=== PATIENT | male | born 1955 | race Caucasian/White ===

== ENCOUNTER → 2017-09-26 10:04 | Outpatient (CLI) | payer SELFPAY ==
--- NOTE | 2017-09-26 10:07 | RAD_ITS ---
STUDY: X-RAY - PELVIS AND RIGHT HIP REASON FOR EXAM: Male, 62 years old. Chronic right hip pain. TECHNIQUE: Radiological exam, hip, unilateral, with pelvis when performed; 2 or 3 views. COMPARISON: None. FINDINGS: There is a non-specific bowel gas pattern. Normal visualized soft tissue structures. Normal bilateral iliac wings, sacroiliac joints and visualized sacrum. Normal bilateral superior and inferior pubic rami. Normal pubic symphysis. Normal bilateral ischial tuberosities. Widening of the femoral neck. There is osteoarthritic spur formation of the acetabular rim. There is severe articular joint space narrowing of the hip. RAD/Hip 2-3 Views with Pelvis IMPRESSION: Moderate degenerative changes of the hip joint with deformity of the femoral head and neck. Femoral acetabular impingement should be ruled out as well as possible avascular necrosis. Electronically Signed: Roberto Carlos Erwin MD at 15:55 EST Tel [phone], Service support ,
== END ==
PROVIDERS: Visit Provider Orthopaedic Surgery
DX: M16.11 Unilateral primary osteoarthritis, right hip (principal); M25.851 Other specified joint disorders, right hip
CPT/HCPCS: 73502

== ENCOUNTER 2017-10-11 07:27 | Inpatient (IN) | payer SELFPAY ==
[2017-10-03 09:29] VITALS: BP 143/86; PULSE 66; RESP 17; TEMP 37.1; O2SAT 97; BMI 31.1
--- NOTE | 2017-10-03 09:54 | SDCEKG_ITS ---
Test Reason : Blood Pressure : / mmHG Vent. Rate : 062 BPM Atrial Rate : 062 BPM P-R Int : 136 ms QRS Dur : 096 ms QT Int : 402 ms P-R-T Axes : 046 008 052 degrees QTc Int : 408 ms Normal sinus rhythm Normal ECG Confirmed by NUZHAT ALFARO, JATINDER ([id number]), web content editor ASHLIE ALEXANDRA ([id number]) on 10/05/2017 1:51:28 PM Referred By: Ian Logan Confirmed By:JATINDER NOLAND MD
[2017-10-03 10:31] LABS: Hematocrit 44.7 % (40-54); Hemoglobin 15.3 g/dl (13.0-16.5); Mean Corp Hgb Conc 34.2 g/gl (32-36); Mean Corpuscular Hgb 31.4 pg (27.0-32.0); Mean Corpuscular Volume 91.6 fL (80-94); Mean Platelet Vol. 10.4 fl (6.2-12.0); Platelet Count 247 K/mm3 (150-450); RBC Distribution Width CV 13.4 % (11.6-14.6); RBC Distribution Width SD 43.9 fl (35.1-43.9); Red Blood Count 4.88 M/mm3 (4.6-6.2); White Blood Count 7.4 K/mm3 (4.4-11.0)
[2017-10-03 10:51] LABS: Scan Indicated on CBC? Y/N NO
[2017-10-03 10:59] LABS: International Normalized Ratio 1.1; Prothrombin Time (Protime)PT. 13.9 SECONDS (11.7-14.9)
[2017-10-03 11:00] LABS: Hemoglobin A1c 6.5 % (4.2-6.3); Partial Thromboplast Time 26.7 Seconds (24.1-36.2)
[2017-10-03 11:02] LABS: AST(SGOT) 20 U/L (15-37); Alanine Aminotransfer ALT/SGPT 45 U/L (16-61); Albumin, Serum 3.7 g/dL (3.2-5.0); Alkaline Phosphatase 89 U/L (45-117); Anion Gap 8 (5-15); BUN 8 mg/dL (7-18); BUN/Creat Ratio 8.6 RATIO (10-20); Bilirubin, Direct 0.12 mg/dL (0.00-0.30); Calcium,Total 8.9 mg/dL (8.5-10.1); Chloride 105 mmol/L (98-107); Creatinine, Serum 0.93 mg/dL (0.70-1.30); EST Glomerular Filtration Rate 87 mL/min (>60); Est Glom Filt Rate - Afr Amer 106 mL/min (>60); Estimated Creatinine Clearance 74.32 ml/min; Globulin 3.6 g/dL (2.2-4.2); Glucose 183 mg/dL (74-106); Potassium 3.6 mmol/L (3.5-5.1); Protein, Total 7.3 g/dL (6.4-8.2); Sodium Level 137 mmol/L (136-145)
[2017-10-11] VITALS (13 sets, daily range): BP systolic 69–115; BP diastolic 38–67; PULSE 47–81; RESP 16–18; TEMP 35.9–36.8; O2SAT 94–98; BMI 31.1
[2017-10-11] MEDS: oxyCODONE HCl Cr 10 MG Tablet PO ×2 (08:18→21:06)
[2017-10-11] MEDS: Celecoxib 200 MG Capsule PO (08:18)
[2017-10-11] MEDS: Ketorolac 15 MG/ML Vial IV (08:38)
--- NOTE | 2017-10-11 08:44 | OP.PN_ITS ---
Immediate Post-Op Note Date of Procedure: 10/11/17 Primary Surgeon/Physician: Ian Logan DO principal solutions architect: Lisa Estevez Pre-Operative Diagnosis: Right hip osteoarthritis Post-Operative Diagnosis: Same as above Surgery/Procedure Performed:: Right total hip arthroplasty Description of Surgical Findings:: See dictation Estimated Blood Loss: 100 Specimen's removed: Bone cuts ASA Class: ASA2 Mod Systematic Disease - Admit VTE Documentation VTE Present on Admission: No VTE Mechan Device Prophylaxis: SCD's, Knee High MAXIMILIAN Hose VTE Pharm Prophylaxis ordered?: Yes
[2017-10-11] MEDS: Clindamycin 900 MG/50 ML BAG 75 MG IV (09:10)
--- NOTE | 2017-10-11 09:20 | HIP_PTH ---
PATIENT: ESTELLE ROWLAND LOC: MS3 U#:[id number] AGE/SX: 62/M [place] [facility] [place]: Ian Logan DO : 1955 BED: 1 DIS: 10/13/2017 SPEC #: [id number] RECD: 10/11/17 11:53 STATUS: KATE MANUEL #: [id number] JULY: 10/11/17 09:[address]: Ian Logan DEPT: SURGICAL PATHOLOGY RECD BY: Kiet Tan ENTERED: 10/11/17 12:53 SP TYPE: TOTAL HIP OTHR DR: Out of Town Doctor Tissues: Hip, NOS Procedures: Decalcification bone/plaque Surgery Specimen Level IV HEADER OPERATION: Total hip replacement PRE-OP DIAGNOSIS: Primary osteoarthritis of right hip TISSUE SUBMITTED: Right femoral head with debrided bone MICROSCOPIC DIAGNOSIS Bone and soft tissue of right hip, total hip resection: Consistent with severe degenerative joint disease. AM:bret 10/17/17 MICROSCOPIC DESCRIPTION Slides are reviewed. GROSS DESCRIPTION Received is one container designated right femoral head with debrided bone. The specimen consists of a femoral head measuring 5.5 x 5.5 x 5 cm. The articular surface displays prominent osteophyte formation, eburnation and bone erosion. The soft tissue predominantly consists of bone reamings measuring in aggregate 10 x 9 x 3 cm. Language Path sections are submitted in two cassettes as follows: 1 - soft tissue, bone reamings, 2 ? femoral head after decalcification. / LEORA:bret 10/11/17 TC:5 CPT: 85730, 13662
--- NOTE | 2017-10-11 11:14 | PCM.OPRPT ---
Report of Operation Date of Procedure: 10/11/17 Pre-Operative Diagnosis: Right hip osteoarthritis Post-Operative Diagnosis: Same as above Surgery/Procedure Performed:: Right total hip arthroplasty Description of Surgical Findings:: 2-year-old male with recalcitrant right hip pain and osteoarthritis who failed operative management to include NSAIDs activity modifications physical therapy and injections. Patient plain from radiographs consistent with osteoarthritis of the right hip. Having failed conservative measures and feelings of his activities of daily living continue to diminish patient requested operative intervention. He was subsequently consented for right total hip arthroplasty. After successful spinal anesthesia patient was taken the operating room in satisfactory condition with somewhat to place to identify patient up procedure limb. Patient received 900 of clindamycin secondary to an adverse reaction to amoxicillin. He also received 1 g of TXA preoperatively. Patient was then placed into the left lateral decubitus position with well-padded axillary roll and a pad on the table to protect the peroneal nerve of the down leg. He was then prepped and draped in usual fashion. Patient had about a 12-15 cm incision made across her greater trochanter and the gluteals moving distally. IT band was longitudinally split. And the greater trochanter was identified. At that point time using gentle internal rotation the short external rotators were released along with the capsule in continuity. Patient had a longitudinal split meeting to the capsule moving proximally. Revealing the femoral neck. The piriformis was preserved. At that point in time the hip was gently flexed and internally rotated allowing for dislocation of the head. We subsequent a standard distal neck cut of roughly 12 mm proximal to the lesser trochanter. The head was removed out in continuity. It measured roughly 51-52 mm in overall diameter with anticipation of using a 56 mm shell. At that point time the acetabulum was then exposed and the cotyloid fossa freed of any excess debris. The labrum was then removed circumferentially around the hip socket at that time. We preserve as much capsule as possible. We separately blank began our reaming technique centralizing using a 48 mm reamer and then moving up roughly to a 53 mm reamer with good cancellus bleeding circumferentially. We then impacted a 56 mm titanium hemispherical shell with cluster hole from [employer], IP orthopedics using standard technique. I elected to place one 6.5 mm cancellous screw using standard AO technique for additional stabilization. We subsequently impacted a 42 mm MDM liner using standard technique. We had good stability to the shell and cup. We then turned our attention to the stem. The femoral neck was presented any excess bony debris was removed using standard technique. carbon cutter was then to introduced to lateralize. Any canal finder then placed. We separately bloat broach reamed using standard technique being sure to lateralize as much as we could to take off any varus nature to the stem. Patient had excellent cortical bone and we sized up to a #4 Accolade 127? stem from [facility]. Using the trial stem in place we trialed with a -4 offset head using a standard technique. We had excellent stability and leg length. The patient could be flexed and internally rotated to roughly 65-75? easy before any form of subluxation could be appreciated. Patient had a negative shuck and could be flexed appropriately at the knee. Again leg lengths felt adequate. At that point time the hip was gently subluxed and dislocated. Trial components were removed. The wound was copiously irrigated multiple times with an irrigated pulsatile machine. And the canal was then prepped using standard technique. We separately impacted again daily Accolade ii 127 deg stem press-fit from [employer]. We elected to continue with the -4 offset. We used a 42 mm buddhism MDM Melba with a Biolox ceramic 28 mm inner -4 offset. The hip was reduced. Stability was maintained. And then will was copiously irrigated using standard technique. We repaired the short external rotators and capsule in continuity through 3 drill holes through the greater trochanter using standard technique. Again the wound was copious irrigated and reviewed for any excess bleeding. At that point time the gluteal fascia and IT band were closed using [id number] technique with #1 Vicryl. Soft tissues reapproximated 2-0 Vicryl. We are running subicular Monocryl and Dermabond placed the skin. The plate patient was then rolled and placed into an abduction pillow. I was scrubbed and available time during our procedure. Patient admitted to floor for 24 hours of IV antibiotics. Appropriate IV and p.o. pain medication. Weightbearing as tolerated. Posterior hip precautions ?6 weeks.. We had no drains or complications. Implants again included the [place] Accolade 2 127? neck shaft angle #4, 42 buddhism MDM head with a 28 mm Biolox ceramic inner. -4 offset. We had one 65 mm titanium cup with a MDM 42 liner that was also fixed with a 6.5 mm cancellous screw all from [employer], [facility]. Contact. heat treating operator: Lisa Estevez Type of Anesthesia:: Spinal Specimen's removed: Bone cuts Estimated Blood Loss (mL): 100 Grafts/Implants Used: [employer], IP Accolade 2 system - Complications None - Admit VTE Documentation VTE Present on Admission: No VTE Mechan Device Prophylaxis: SCD's, Knee High MAXIMILIAN Hose VTE Pharm Prophylaxis ordered?: Yes
--- NOTE | 2017-10-11 11:22 | OP.PCM_ITS ---
Report of Operation Date of Procedure: 10/11/17 Pre-Operative Diagnosis: Right hip osteoarthritis Post-Operative Diagnosis: Same as above Surgery/Procedure Performed:: Right total hip arthroplasty Description of Surgical Findings:: 2-year-old male with recalcitrant right hip pain and osteoarthritis who failed operative management to include NSAIDs activity modifications physical therapy and injections. Patient plain from radiographs consistent with osteoarthritis of the right hip. Having failed conservative measures and feelings of his activities of daily living continue to diminish patient requested operative intervention. He was subsequently consented for right total hip arthroplasty. After successful spinal anesthesia patient was taken the operating room in satisfactory condition with somewhat to place to identify patient up procedure limb. Patient received 900 of clindamycin secondary to an adverse reaction to amoxicillin. He also received 1 g of TXA preoperatively. Patient was then placed into the left lateral decubitus position with well-padded axillary roll and a pad on the table to protect the peroneal nerve of the down leg. He was then prepped and draped in usual fashion. Patient had about a 12-15 cm incision made across her greater trochanter and the gluteals moving distally. IT band was longitudinally split. And the greater trochanter was identified. At that point time using gentle internal rotation the short external rotators were released along with the capsule in continuity. Patient had a longitudinal split meeting to the capsule moving proximally. Revealing the femoral neck. The piriformis was preserved. At that point in time the hip was gently flexed and internally rotated allowing for dislocation of the head. We subsequent a standard distal neck cut of roughly 12 mm proximal to the lesser trochanter. The head was removed out in continuity. It measured roughly 51-52 mm in overall diameter with anticipation of using a 56 mm shell. At that point time the acetabulum was then exposed and the cotyloid fossa freed of any excess debris. The labrum was then removed circumferentially around the hip socket at that time. We preserve as much capsule as possible. We separately blank began our reaming technique centralizing using a 48 mm reamer and then moving up roughly to a 53 mm reamer with good cancellus bleeding circumferentially. We then impacted a 56 mm titanium hemispherical shell with cluster hole from [employer] orthopedics using standard technique. I elected to place one 6.5 mm cancellous screw using standard AO technique for additional stabilization. We subsequently impacted a 42 mm MDM liner using standard technique. We had good stability to the shell and cup. We then turned our attention to the stem. The femoral neck was presented any excess bony debris was removed using standard technique. card cutter helper was then to introduced to lateralize. Any canal finder then placed. We separately bloat broach reamed using standard technique being sure to lateralize as much as we could to take off any varus nature to the stem. Patient had excellent cortical bone and we sized up to a # 4 Accolade 127? stem from [facility]. Using the trial stem in place we trialed with a -4 offset head using a standard technique. We had excellent stability and leg length. The patient could be flexed and internally rotated to roughly 65-75? easy before any form of subluxation could be appreciated. Patient had a negative shuck and could be flexed appropriately at the knee. Again leg lengths felt adequate. At that point time the hip was gently subluxed and dislocated. Trial components were removed. The wound was copiously irrigated multiple times with an irrigated pulsatile machine. And the canal was then prepped using standard technique. We separately impacted again daily Accolade ii 127 deg stem press-fit from [place]. We elected to continue with the -4 offset. We used a 42 mm yazidism MDM Melba with a Biolox ceramic 28 mm inner -4 offset. The hip was reduced. Stability was maintained. And then will was copiously irrigated using standard technique. We repaired the short external rotators and capsule in continuity through 3 drill holes through the greater trochanter using standard technique. Again the wound was copious irrigated and reviewed for any excess bleeding. At that point time the gluteal fascia and IT band were closed using [id number] technique with #1 Vicryl. Soft tissues reapproximated 2-0 Vicryl. We are running subicular Monocryl and Dermabond placed the skin. The plate patient was then rolled and placed into an abduction pillow. I was scrubbed and available time during our procedure. Patient admitted to floor for 24 hours of IV antibiotics. Appropriate IV and p.o. pain medication. Weightbearing as tolerated. Posterior hip precautions ?6 weeks.. We had no drains or complications. Implants again included the [place] Accolade 2 127? neck shaft angle #4, 42 yazidism MDM head with a 28 mm Biolox ceramic inner. -4 offset. We had one 65 mm titanium cup with a MDM 42 liner that was also fixed with a 6.5 mm cancellous screw all from [employer]. Contact. black top roller: Lisa Estevez Type of Anesthesia:: Spinal Specimen's removed: Bone cuts Estimated Blood Loss (mL): 100 Grafts/Implants Used: [employer] Accolade 2 system - Complications None - Admit VTE Documentation VTE Present on Admission: No VTE Mechan Device Prophylaxis: SCD's, Knee High MAXIMILIAN Hose VTE Pharm Prophylaxis ordered?: Yes
--- NOTE | 2017-10-11 11:55 | RAD_ITS ---
STUDY: X-RAY - PELVIS AND RIGHT HIP REASON FOR EXAM: Male, 62 years old. Right hip replacement. TECHNIQUE: Radiological exam, hip, unilateral, with pelvis when performed; 1 view COMPARISON: Comparison is made with prior study dated September 26, 2017. FINDINGS: The patient is status post right total hip replacement. There is good alignment. Postoperative soft tissue changes. RAD/Hip Min 2 Views (Portable) IMPRESSION: Total right hip replacement. The alignment. Postoperative soft tissue changes. Electronically Signed: Roberto Carlos Erwin MD at 14:16 EST Tel [phone], Service support ,
[2017-10-11] MEDS: Senna/Docusate Sodium 1 Tablet 2 TABLET PO ×2 (13:14→21:06)
[2017-10-11] MEDS: Famotidine 20 MG Tablet PO (13:14)
[2017-10-11] MEDS: Acetaminophen 500 MG Tablet 1000 MG PO ×2 (13:14→21:06)
[2017-10-11] MEDS: Clindamycin 600 MG/50 ML BAG 100 MG IV ×2 (14:58→21:04)
[2017-10-11] MEDS: Aspirin 325 MG Tablet PO (16:59)
[2017-10-11] MEDS: oxyCODONE 5 MG Tablet PO (18:18)
[2017-10-11] MEDS: Lactated Ringers 1,000 ML 75 ML IV (21:04)
[2017-10-11] MEDS: Atorvastatin Calcium 40 MG Tablet PO (21:05)
[2017-10-12] MEDS: oxyCODONE 5 MG Tablet PO ×3 (01:13→13:47)
[2017-10-12 01:15] VITALS: BP 124/71; PULSE 88; RESP 16; TEMP 37.2; O2SAT 96
[2017-10-12] MEDS: Clindamycin 600 MG/50 ML BAG 100 MG IV (04:00)
[2017-10-12 04:24] VITALS: BP 128/65; PULSE 100; RESP 18; TEMP 37.1; O2SAT 95
[2017-10-12] MEDS: 0.9% NaCl Peripheral Flush Adult/Peds IV ×2 (05:26→18:21)
[2017-10-12] MEDS: Acetaminophen 500 MG Tablet 1000 MG PO ×3 (05:26→21:47)
[2017-10-12 06:43] LABS: Hematocrit 34.1 % (40-54); Hemoglobin 11.5 g/dl (13.0-16.5); Mean Corp Hgb Conc 33.7 g/gl (32-36); Mean Corpuscular Hgb 31.8 pg (27.0-32.0); Mean Corpuscular Volume 94.2 fL (80-94); Mean Platelet Vol. 11.1 fl (6.2-12.0); Platelet Count 201 K/mm3 (150-450); RBC Distribution Width CV 13.3 % (11.6-14.6); RBC Distribution Width SD 44.2 fl (35.1-43.9); Red Blood Count 3.62 M/mm3 (4.6-6.2); White Blood Count 9.8 K/mm3 (4.4-11.0)
[2017-10-12 06:46] LABS: Scan Indicated on CBC? Y/N NO
[2017-10-12 07:03] LABS: Anion Gap 7 (5-15); BUN 17 mg/dL (7-18); BUN/Creat Ratio 17.6 RATIO (10-20); Calcium,Total 7.7 mg/dL (8.5-10.1); Chloride 104 mmol/L (98-107); Creatinine, Serum 0.97 mg/dL (0.70-1.30); EST Glomerular Filtration Rate 84 mL/min (>60); Est Glom Filt Rate - Afr Amer 101 mL/min (>60); Estimated Creatinine Clearance 71.25 ml/min; Glucose 124 mg/dL (74-106); Potassium 3.8 mmol/L (3.5-5.1); Sodium Level 138 mmol/L (136-145)
--- NOTE | 2017-10-12 07:53 | PCM.PN.ORT ---
Subjective: Postop day 1 status post right total hip arthroplasty. Patient with hypotensive episode yesterday when going from bed to chair. Vital signs showed him to be hypotensive with no response to heart rate this is most likely indicative of a spinal anesthesia. At this point time his vital signs look very good. Patient is currently sitting in bed eating breakfast. Patient is hesitant about moving and his also has hesitancy about mobilization of the patient. No other reported fevers chills nausea vomiting chest pain or shortness of breath. - Physical Exam General: Alert, Oriented x3, Cooperative, No apparent distress Musculoskeletal: - - Distally neurovascular intact. EHL anterior tibialis gastrocsoleus peroneals 5 out of [address] No expanding hematoma. H&H remained stable. Vital signs improved and stable. No calf pain negative Homans SCDs teds in place. Hardware otherwise well seated well-placed. Vital Signs Temp Pulse Resp BP Pulse Ox 98.8 F 100 18 128/65 H 95 10/12/17 04:24 10/12/17 04:24 10/12/17 04:24 10/12/17 04:24 10/12/17 04:24 Oxygen Delivery Method Room Air Weight: 192 lb 14.472 oz Body Mass Index (BMI) 31.1 Intake and Output for Last 24 Hours 10/10/17 10/11/17 10/12/17 23:59 23:59 23:59 Intake Total 2300 / 2300 2650 / 2650 Output Total 100 / 100 600 / 600 Balance 2200 / 2200 0 / 0 Laboratory Tests Past 24 Hrs 10/12/17 10/12/17 05:50 05:50 WBC 9.8 RBC 3.62 L Hgb 11.5 L Hct 34.1 L MCV 94.2 H MCH 31.8 MCHC 33.7 RDW 13.3 RDW Differential 44.2 H Plt Count 201 MPV 11.1 Sodium 138 Potassium 3.8 Chloride 104 Carbon Dioxide 27.0 Anion Gap 7 BUN 17 Creatinine 0.97 Estim Creat Clear Calc 71.25 Est GFR (MDRD) Af Amer 101 Est GFR (MDRD) Non-Af 84 BUN/Creatinine Ratio 17.6 Glucose 124 H Calcium 7.7 L Assessment/Plan Assessment: Postop day 1 status post right total hip arthroplasty doing well. Plan: At this point time will have case management evaluate the patient for possible skilled nurse facility placement. The patient is a little bit hesitant in terms of mobilization, he has concerns about posterior hip precautions and whether or not he is can remember that as he is afraid he is going to dislocate despite the stability of the implant. The patient also reports that his is hesitant with moving him. I think the patient will benefit from skilled nurse facility if approved. We will continue to follow at this time. Any major issues please contact me.
[2017-10-12] MEDS: Aspirin 325 MG Tablet PO ×2 (09:59→21:47)
[2017-10-12] MEDS: oxyCODONE HCl Cr 10 MG Tablet PO ×2 (10:05→21:46)
[2017-10-12] MEDS: Ascorbic Acid 500 MG Tablet 1000 MG PO (10:05)
[2017-10-12] MEDS: Multivitamins,Therapeutic Tablet 1 TABLET PO (10:05)
[2017-10-12] MEDS: Senna/Docusate Sodium 1 Tablet 2 TABLET PO ×2 (10:05→21:47)
[2017-10-12] MEDS: Calcium Carbonate 500 MG Tablet PO ×2 (10:05→21:45)
[2017-10-12 10:06] VITALS: PULSE 103
[2017-10-12] MEDS: Ramipril 10 MG Capsule PO (10:06)
[2017-10-12] MEDS: Metoprolol(XL)Succ 50 MG Tablet PO (10:06)
[2017-10-12] MEDS: Famotidine 20 MG Tablet PO (10:06)
[2017-10-12 10:07] VITALS: BP 123/78; PULSE 103; RESP 18; TEMP 36.8; O2SAT 98
[2017-10-12 15:00] VITALS: BP 135/71; PULSE 100; RESP 18; TEMP 37.4; O2SAT 98
--- NOTE | 2017-10-12 15:35 | CASEMGMT ---
MARISA FABIAN Face to Face with patient for initial transition planning/care coordination assessment. MARISA FABIAN introduced self and role at [facility]. Patient lying in bed, alert and oriented, at bedside. Patient willing to participate in assessment and is able to answer all questions appropriately. Care providers, pharmacy, and demographics verified. See link attached. Patient wishes to discharge home and is requesting outpatient therapy be [place] at [facility]. MARISA FABIAN call Dr. Logan's office and requested that order be sent to [facility] for outpatient therapy. MARISA FABIAN called and scheduled first outpatient therapy appt which soonest could be 10/18/17 at 7:00am. RN RUI updated patient and and were agreeable with appt but asked if something cancelled for Tuesday that it be rescheduled. MARISA FABIAN discussed with patient and to have [facility] assist with scheduling further appt to coordinate with [facility] Transport Van. Patinet and voiced understanding and thanked MARISA FABIAN. Patient states he has no further needs or concerns at this time. MARISA FABIAN updated Dr. Logan regarding first outpatient therapy appt for 10/18/17 at 7:00am. CM to follow for discharge planning needs that may arise. Disposition Plan: Patient to discharge home with outpatient therapy, family support, and follow-up plans in place.
[2017-10-12] MEDS: Ondansetron 4 MG/2 ML Vial IV (18:21)
[2017-10-12 21:00] VITALS: BP 133/76; PULSE 107; RESP 16; TEMP 37.7; O2SAT 97
[2017-10-12] MEDS: Atorvastatin Calcium 40 MG Tablet PO (21:47)
[2017-10-13 03:00] VITALS: BP 126/79; PULSE 92; RESP 16; TEMP 37.1; O2SAT 94
[2017-10-13 05:45] LABS: Hematocrit 32.9 % (40-54); Hemoglobin 11.1 g/dl (13.0-16.5); Mean Corp Hgb Conc 33.7 g/gl (32-36); Mean Corpuscular Volume 94.8 fL (80-94); Mean Platelet Vol. 10.7 fl (6.2-12.0); Platelet Count 198 K/mm3 (150-450); RBC Distribution Width CV 13.8 % (11.6-14.6); RBC Distribution Width SD 45.7 fl (35.1-43.9); Red Blood Count 3.47 M/mm3 (4.6-6.2); White Blood Count 9.4 K/mm3 (4.4-11.0)
[2017-10-13 05:52] LABS: Scan Indicated on CBC? Y/N NO
[2017-10-13] MEDS: Acetaminophen 500 MG Tablet 1000 MG PO (06:59)
--- NOTE | 2017-10-13 07:50 | PCM.DC.ORTHO ---
Discharge Activity: Return to Normal Activity, May not drive while taking narcotic pain medications., May Shower, Use Walker May shower in (days): 1 May resume sexual activity in: 8 weeks Ice area for (Minutes): 20 Weight Bearing Status: Weight bearing as tolerated Additional Activity Instructions:: Posterior hip precautions ?6 weeks. Use pillow with rest. Call your doctor if your incision/area has: Continuous Slow Oozing, Sudden Increased Bleeding, Increased Pain/ Swelling, Increased Redness, Foul Smelling Discharge, Swelling at the incision site Call your doctor if you observe: Fever of 101 or Higher, Coldness, Increased Pain, Numbness or Tingling, Change in Color, Inability to urinate, Inability to have a bowel movement, Using more than one pad per hour, Shortness of breath, Dizziness, Fainting spells, Swelling in the ankles, Chest pain, Prolonged hiccoughing, Increased palpitations (irregular heartbeat), Calf discomfort, Uncontrolled pain Suture Line Care: Avoid Pulling/Pushing, Avoid Pinching/Bending Change Dressing in (Days):: 5 Remove Dressing in (days):: 5 Cleanse incision/area with: Soap & Water Allergies/Adverse Reactions: Allergies AMOXICILLIN Allergy (Uncoded 10/03/17 09:17) Unknown Medications to take at Discharge Albuterol IH (ProAir) [Proair Hfa (SP)Vent Pts] 1 - 2 puff INHALATION Q4H PRN PRN 10/03/17 Aspirin [Aspir-Low] 81 mg PO DAILY 10/03/17 Atorvastatin Calcium [Lipitor] 40 mg PO QHS 10/03/17 Budesonide/Formoterol 160/4.5 [Symbicort 160/4.5 Mcg Inhaler (SP)] 2 puff INHALATION QHS 10/03/17 Metoprolol Succinate [Toprol Xl] 50 mg PO DAILY 10/03/17 Nitroglycerin [Nitrostat] 0.4 mg SL X1 10/03/17 Ramipril [Altace] 10 mg PO DAILY 10/03/17 Aspirin E.C. [Ecotrin] 325 mg PO BID #30 tab 10/13/17 Docusate Sodium [Colace] 100 mg PO BID PRN PRN #10 cap 10/13/17 Oxycodone HCl/Acetaminophen [Percocet 5/325] 1 - 2 tablet PO Q4H PRN PRN #60 tablet 10/13/17 ProMETHAzine [Phenergan] 25 mg PO Q4H PRN PRN #10 tab 10/13/17 The following prescriptions were given: Oxycodone HCl/Acetaminophen [Percocet 5/325] 1 - 2 tablet PO Q4H PRN PRN #60 tablet PRN Reason: Pain ProMETHAzine [Phenergan] 25 mg PO Q4H PRN PRN #10 tab PRN Reason: Nausea Docusate Sodium [Colace] 100 mg PO BID PRN PRN #10 cap PRN Reason: Constipation Aspirin E.C. [Ecotrin] 325 mg PO BID #30 tab Primary Care Physician: Monserrat Vela,Out of [Primary Care Provider] - Please Follow Up With: [facility] Please Follow Up With: Ian Logan DO When: call [facility] for appt for 2 weeks Proposed Discharge Date: 10/13/17
--- NOTE | 2017-10-13 07:52 | PCM.DC.BLA ---
Discharge Summary Date of Admission: 10/11/17 Date of Discharge: 10/13/17 Summary: 52-year-old male status post right total hip arthroplasty. No major issues. Pain control. H&H remained stable. Patient tolerated regular diet. Patient was amatory physical therapy. Denies any fevers chills nausea vomiting chest pain or shortness of breath. Patient was approved for outpatient physical therapy. At this point time patient will be discharged home. Assessment: After orthopedics status post right total hip arthroplasty doing well. Plan: At this point time patient will be discharged to outpatient physical therapy. Patient will continue with posterior hip precautions ?6 weeks. Patient will be on aspirin 325 p.o. twice daily with GI prophylaxis ?21 days from date of operation. Patient may shower at this time. Continue with coverage of the wound for 7 total days from date of operation. Patient will follow with me in 2 weeks. Any major issues please contact me.
[2017-10-13] MEDS: Ascorbic Acid 500 MG Tablet 1000 MG PO (08:34)
[2017-10-13] MEDS: Multivitamins,Therapeutic Tablet 1 TABLET PO (08:34)
[2017-10-13] MEDS: Calcium Carbonate 500 MG Tablet PO (08:34)
[2017-10-13] MEDS: Aspirin 325 MG Tablet PO (08:34)
[2017-10-13 09:17] VITALS: BP 130/77; PULSE 101; RESP 18; TEMP 36.7; O2SAT 95
[2017-10-13 09:58] VITALS: PULSE 84
[2017-10-13] MEDS: Metoprolol(XL)Succ 50 MG Tablet PO (09:58)
[2017-10-13] MEDS: oxyCODONE HCl Cr 10 MG Tablet PO (09:58)
[2017-10-13] MEDS: Famotidine 20 MG Tablet PO (09:58)
[2017-10-13] MEDS: Ramipril 10 MG Capsule PO (09:58)
[2017-10-13 10:00] VITALS: PULSE 84
[2017-10-13 12:50] VITALS: BP 115/72; PULSE 104; RESP 18; TEMP 36.8; O2SAT 94
== END 2017-10-13 13:44 | disposition home or self-care (01) | DRG 470 ==
LOC: ACINP 07:28 → MS3 11:30
PROVIDERS: Anesthesiology; Admitting Provider Orthopaedic Surgery; Visit Provider Orthopaedic Surgery
PROC: 0SR90JZ Replacement of Right Hip Joint with Synthetic Substitute, Open Approach (ICD-10-PCS; CPT 27130; principal; 2017-10-11 08:55)
DX: M16.11 Unilateral primary osteoarthritis, right hip (principal); E78.5 Hyperlipidemia, unspecified; I10 Essential (primary) hypertension; J45.909 Unspecified asthma, uncomplicated
CPT/HCPCS: 36415; 73502; 80048; 80076; 83036; 85027; 85610; 85730; 87077; 87081; 88305; 88311; 97110; 97116; 97162; 97166; 97530; 97535; J7040; J7120; A4216; J2405

== ENCOUNTER → 2017-10-24 09:19 | Outpatient (CLI) | payer SELFPAY ==
--- NOTE | 2017-10-24 09:23 | RAD_ITS ---
STUDY: X-RAY - PELVIS AND RIGHT HIP REASON FOR EXAM: Male, 62 years old. Postop 2 weeks TECHNIQUE: Radiological exam, hip, unilateral, with pelvis when performed; 2 or 3 views. COMPARISON: Previous study of October 11, 2017 FINDINGS: There is a non-specific bowel gas pattern. Normal visualized soft tissue structures. Normal bilateral iliac wings, sacroiliac joints and visualized sacrum. Normal bilateral superior and inferior pubic rami. Normal pubic symphysis. Normal bilateral ischial tuberosities. Status post total right hip replacement changes are seen with implants appearing in good position. There is no evidence of implant loosening or new associated fracture or dislocation. There are mild arthritic changes of the left hip joint. RAD/Hip 2-3 Views with Pelvis IMPRESSION: Status post total right hip replacement changes seen with implants appearing in good position. There is no evidence of implant loosening or new associated fracture or dislocation. Mild degenerative changes of the left hip joint. Electronically Signed: Ortega Sharma MD at 18:04 EDT , Service support ,
== END ==
PROVIDERS: Visit Provider Orthopaedic Surgery
DX: M16.0 Bilateral primary osteoarthritis of hip (principal); Z96.641 Presence of right artificial hip joint
CPT/HCPCS: 73502

== ENCOUNTER 2017-11-14 14:00 | Outpatient (RCR) | payer OTHER, SELFPAY ==
--- NOTE | 2017-10-17 13:29 | HP.PTEVAL ---
Patient's Visit Information ESTELLE ROWLAND is a 62 year old M referred to Physical Therapy by DO GILA Ordaz with a diagnosis of S/P RIGHT THR 10/11/17. Date of Evaluation: 10/17/17 Physical Therapist: Trena Aragon - Visit Plan Frequency: 2-3x /Week Duration: 4-6 Weeks Plan: GAIT TRAINING WBAT RIGHT LE ON ALL SURFACES. TRUNK AND ORLIN LE ROM, STRETCHING AND STRENGTHENING TO HELP MEET SET GOALS. PATIENT IS AGREEABLE WITH THIS POC - Subjective Subjective: Work/Leisure: PARTIAL PRISON SINCE BEGINNING OF 2018. 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 Disability: NO. Present symptoms: VERY LITTLE PAIN. INTERMITTENT RIGHT HIP PAIN AND TIGHTNESS IN THE THIGH. PATIENT REPORTS A LITTLE BIT OF NUMBNESS NEAR WHERE THEY DID THE INJECTION NEAR THE SPINE BUT GONE NOW. NO OTHER NUMBNESS OR TINGLING. STARTING TO HAVE PAIN BACK IN THE RIGHT KNEE. Present since: S/P RIGHT THR 10/11/17. ABOUT 1.5 YEARS OF RIGHT HIP PAIN AND WEAKNESS PRIOR TO SURGERY. WAS LIMPING DUE TO RIGHT LEG BECOMING SHORTER. Pain Scale: RIGHT HIP: WORST 2/10, LEAST 0/10. RIGHT KNEE: WORST 1/10, LEAST 0/10. Currently: RIGHT HIP: 0/10, RIGHT KNEE 1/10. Commenced as a result of: RIGHT HIP BEING WORN OUT FROM CLEANING CARPET FOR 27 YEARS. RIGHT KNEE PAIN STARTED FOR NO APPARENT REASON. Symptoms at onset: RIGHT HIP. Worse: LIFTING THE LEG, GETTING IN AND OUT OF BED, PUTTING RECLINER LEG DOWN, WALKING WITHOUT THE WALKER, TRYING TO ROLL OVER ONTO LEFT SIDE IN BED FEELS LIKE GOING TO DISLOCATE THE HIP. Better: SITTING. Disturbed sleep: YES. Previous history/Previous treatment: NONE. JUST SURGERY. Gait: INDEP GAIT WITH A WALKER WELL BUT PAIN AND DIFFICULTY WITHOUT ASSISTIVE DEVICE. SCARED OF FALLING WITHOUT AD. FREE STANDING FEELS RISKY. PRIOR TO SURGERY RIGHT LE WAS SHORTER THAN LEFT AND HE CAN FEEL THAT HAS BEEN CORRECTED. Difficulty initiating urinatin: NO. Accidents: NO. Unexplained weight loss: NO. Imaging: x-rays SHOWED HIP WAS BONE ON BONE A YEAR AGO AND IT WAS GETTING VERY PAINFUL AND BARELY ABLE TO WALK EVEN WITH A CANE RIGHT BEFORE SURGERY. PMH: CAD, HEART ATTACK SEP 2011, ONE STENT, ENLARGED PROSTATE, MILD ASTHMA, CURRENTLY HAS 3 UNREPAIRED HERNIAS. OTHER: LAST VISIT WITH DR. GRAVES WAS LAST TUESDAY IN THE HOSPITAL. PATIENT REPORTS HE IS WBAT AND THE HE COULD SIDE SLEEP TOLERATED WITH PILLOW BETWEEN LEGS. STATES NORMAL HE WOULD NOT START A PATIENT INTO REHAB UNTIL 2 WEEKS AFTER SURGERY BUT THEY WANTED TO COME TODAY TO GET A SCHEDULE ESTABLISHED BECAUSE WORKS IN [place] AND TRANSPORTATION NEEDS TO BE ARRANGED. PATIENT REPORTS HE HAS NOT REALLY BEEN DOING THE EX'S HE WAS GIVEN (HE HAS HANDOUT) BUT HE IS ACTIVE. STATES HE GETS NAUSEATED AT TIMES WITH AND WITHOUT THE EX'S. HE STATES HE IS FIGHTING SOME DEPRESSION AND FEELS OUT OF THE LOOP. STATES HE FEELS URGENCY TO RECOVER. - Objective THIS PATIENT AMBULATES INDEP'LY INTO PT WITH A STANDARD WALKER. HE IS RUSHING BECAUSE HE IS LATE AND WENT TO THE WRONG PLACE. HE PUTS THE WALKER TOO FAR IN FRONT OF HIM AND STARTS STEPPING WITH ONLY TWO FEET OF THE WALKER ON THE FLOOR. ABLE TO CORRECT WITH CUEING BUT DOES MUCH BETTER WITH A ROLLING WALKER. STATES THEY RECOMMENDED A ROLLING WALKER AT THE HOSPITAL TOO BUT TRYING TO AVOID GETTING WHEELS BECAUSE HOPING TO BE OFF THE WALKER IN A WEEK. AFTER INSTRUCTIONS, PATIENT UNDERSTANDING MUCH BETTER THE BENEFITS OF WALKING SLOWER WITH AD VS FASTER AND WITHOUT AD TO DECREASE DEVIATIONS AT THIS POINT. PATIENT TRANSFERS INDEP'LY FROM SIT TO STAND TO WALKER BUT VERY DEPENDENT ON UE'S WITH TRANSFERS. UNALBE TO VIEW INCISIOND DUE TO BANDAGING BUT NO SIGNS OF DRAINAGE OR EXCESSIVE REDNESS AROUND THE INCISION. HE DOES HAVE A LITTLE NUMBNESS AROUND THE INCISION BUT OTHERWISE LIGHT TOUCH SENSATION IS INTACT AND SYMMETRICAL. PATIENT IS ABLE TO INDEP'LY TRANSFER FROM SIT TO SUPINE BUT WITH A LOT OF GUARDING AND C/O'S OF PAIN. HE WAS ABLE TO LIFT HIS RIGHT LEG ONTO THE BED WITHOUT USING UE'S. HE IS UNABLE TO GET HIS RIGHT KNEE STRAIGHT. HE ADMITS TO PROPING HIS RIGHT KNEE IN BED FOR COMFORT THE LAST TWO DAYS. HE ALSO ADMITS TO NOT DOING HIS HOME EX'S. RIGHT KNEE AROM IN SUPINE WITH A HEEL SLIDE IS -10 DEG EXT TO 112 DEG FLEX. MMT: LLE 5/5 EXCEPT HIP GRADED 4/5 AND TESTING OF HIP PROVOKES A LITTLE BIT OF INCREASED RIGHT HIP PAIN. RLE MMT: HIP FLEX 3-/5, KNEE EXT 3-/5, KNEE FLEX 3-/5, ANKLE DORSI 5/5. ROM: IN ADDITION TO RIGHT KNEE ROM DEFICITS NOTED ABOVE, PATIENT HAS TIGHT HIP FLEXORS ON THE RIGHT. RIGHT HIP FLEXION TO 90 DEG. PATIENT REPORTS 5/10 PAIN LYING DOWN ON HIS BACK ATTEMPTING TO GET HIS RIGHT LEG OUT STRAIGHT. THE RIGHT LE APPEARS TO BE SIGNIFICANTLY LONGER IN STANDING AND IN LYING THAN THE LEFT NOW AND PATIENT REPORTS IT WAS THE OTHER WAY AROUND BEFORE SURGERY. TREATMENT: PATIENT WAS SEEN TODAY FOR REVIEW OF THR PRECAUTIONS AND REVIEW OF CURRENT HEP. HEP INSTRUCTIONS FOR ANKLE PUMPS, HEEL SLIDES, QUAD SETS, GLUTE SETS AND SLR'S 3 TIMES A DAY WORKING UP TO 3 SETS OF 10 EACH. INSTRUCTIONS ALSO GIVEN FOR APPROPRIATE ACTIVITY MODIFICATIONS ESPECIALLY IN TERMS OF LIMITING PROLONGED SITTING IN THE RECLINER. PATIENT COMMUNICATED A GOOD UNDERSTANDING OF ALL INSTRUCTIONS AFTER GIVEN. OTHER: PATIENTS PRESENT THROUGHOUT SESSION. - Goals Goal 1:: INDEP AND SAFE GAIT ON ALL SURFACES WITH LEAST ASSISTIVE DEVICE Goal Time Frame: 4-6 Weeks Goal 2:: INCREASE FUNCTIONAL ROM OF RIGHT LE TO EASE ADL'S Goal Time Frame: 4-6 Weeks Goal 3:: INCREASE FUNCTIONAL STRENGTH OF RIGHT LE TO HELP PATIENT RETURN TO PRIOR LEVEL OF FUNCTION Goal Time Frame: 4-6 Weeks Goal 4:: INDEP HEP Goal Time Frame: 4-6 Weeks - Rehabilitation Potential Rehabilitation Potential: Good - Anticipated Interventions Patient/Client Instruction: Educate patient on: Condition, Plan of Care, Risk Factors, Benefits of Fitness Program For the Purpose of:: To improve self management Therapeutic Exercise to Include: Strength training, Body mechanics, Postural training, Flexibilty training, Gait and locomotor training, Active ROM For the Purpose of:: To increase tolerance to activity/condition/position, To improve performance and independence with ADL's, To improve ability of physical actions for home/community/work/leisure, To improve gait and locomotor functions Thank you for the opportunity to evaluate your patient. For Medicare and Medicare HMO plans, please review the plan of care and approve it. It will need to be FAXED BACK to us at [phone] for Medicare purposes. Please let me know if there are questions or concerns regarding this plan of care. Physician Signature: Date:
--- NOTE | 2017-11-14 14:58 | HP.PTEVAL_ITS ---
Patient's Visit Information ESTELLE ROWLAND is a 62 year old M referred to Physical Therapy by Ian Logan DO DR.MTPAMELA with a diagnosis of S/P RIGHT THR 10/11/17. Date of Evaluation: 10/17/17 Physical Therapist: Trena Downey Visit Plan Frequency: 2-3x /Week Duration: 4-6 Weeks Plan: D/C TO FOLLOW UP WITH DR. LOGAN IN ABOUT 10 DAYS. WE WOULD BE HAPPY TO RESUME PT IF PATIENT DOES NOT CONTINUE TO MAKE PROGRESS INDEP'LY BUT HE WOULD LIKE TO BE DISCHARGED AND PLANS TO START WORKING SOON POSSIBLE. 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 Disability: NO. Present symptoms: VERY LITTLE PAIN. INTERMITTENT RIGHT HIP PAIN AND TIGHTNESS IN THE THIGH. PATIENT REPORTS A LITTLE BIT OF NUMBNESS NEAR WHERE THEY DID THE INJECTION NEAR THE SPINE BUT GONE NOW. NO OTHER NUMBNESS OR TINGLING. STARTING TO HAVE PAIN BACK IN THE RIGHT KNEE. Present since: S/P RIGHT THR 10/11/17. ABOUT 1.5 YEARS OF RIGHT HIP PAIN AND WEAKNESS PRIOR TO SURGERY. WAS LIMPING DUE TO RIGHT LEG BECOMING SHORTER. Pain Scale: RIGHT HIP: WORST 2/10, LEAST 0/10. RIGHT KNEE : WORST 1/10, LEAST 0/10. Currently: RIGHT HIP: 0/10, RIGHT KNEE 1/10. Commenced as a result of: RIGHT HIP BEING WORN OUT FROM CLEANING CARPET FOR 27 YEARS. RIGHT KNEE PAIN STARTED FOR NO APPARENT REASON. Symptoms at onset: RIGHT HIP. Worse: LIFTING THE LEG, GETTING IN AND OUT OF BED, PUTTING RECLINER LEG DOWN, WALKING WITHOUT THE WALKER, TRYING TO ROLL OVER ONTO LEFT SIDE IN BED FEELS LIKE GOING TO DISLOCATE THE HIP. Better: SITTING. Disturbed sleep: YES. Previous history/Previous treatment: NONE. JUST SURGERY. Gait: INDEP GAIT WITH A WALKER WELL BUT PAIN AND DIFFICULTY WITHOUT ASSISTIVE DEVICE. SCARED OF FALLING WITHOUT AD. FREE STANDING FEELS RISKY. PRIOR TO SURGERY RIGHT LE WAS SHORTER THAN LEFT AND HE CAN FEEL THAT HAS BEEN CORRECTED. Difficulty initiating urinatin: NO. Accidents: NO. Unexplained weight loss: NO. Imaging: x-rays SHOWED HIP WAS BONE ON BONE A YEAR AGO AND IT WAS GETTING VERY PAINFUL AND BARELY ABLE TO WALK EVEN WITH A CANE RIGHT BEFORE SURGERY. PMH: CAD, HEART ATTACK SEP 2011, ONE STENT, ENLARGED PROSTATE , MILD ASTHMA, CURRENTLY HAS 3 UNREPAIRED HERNIAS. OTHER: LAST VISIT WITH DR. LOGAN WAS LAST TUESDAY IN THE HOSPITAL. PATIENT REPORTS HE IS WBAT AND THE HE COULD SIDE SLEEP TOLERATED WITH PILLOW BETWEEN LEGS. STATES NORMAL HE WOULD NOT START A PATIENT INTO REHAB UNTIL 2 WEEKS AFTER SURGERY BUT THEY WANTED TO COME TODAY TO GET A SCHEDULE ESTABLISHED BECAUSE WORKS IN [place] AND TRANSPORTATION NEEDS TO BE ARRANGED. PATIENT REPORTS HE HAS NOT REALLY BEEN DOING THE EX'S HE WAS GIVEN (HE HAS HANDOUT) BUT HE IS ACTIVE. STATES HE GETS NAUSEATED AT TIMES WITH AND WITHOUT THE EX'S. HE STATES HE IS FIGHTING SOME DEPRESSION AND FEELS OUT OF THE LOOP. STATES HE FEELS URGENCY TO RECOVER. - Pain RIGHT HIP Pain Intensity (Out of 10): 0 Comment: stiff Left Arm Pain Intensity (Out of 10): 0 Comment: Palm, 3rd and 4th metacarpals - Objective THIS PATIENT AMBULATES INDEP'LY INTO PT WITH A STANDARD WALKER. HE IS RUSHING BECAUSE HE IS LATE AND WENT TO THE WRONG PLACE. HE PUTS THE WALKER TOO FAR IN FRONT OF HIM AND STARTS STEPPING WITH ONLY TWO FEET OF THE WALKER ON THE FLOOR. ABLE TO CORRECT WITH CUEING BUT DOES MUCH BETTER WITH A ROLLING WALKER. STATES THEY RECOMMENDED A ROLLING WALKER AT THE HOSPITAL TOO BUT TRYING TO AVOID GETTING WHEELS BECAUSE HOPING TO BE OFF THE WALKER IN A WEEK. AFTER INSTRUCTIONS, PATIENT UNDERSTANDING MUCH BETTER THE BENEFITS OF WALKING SLOWER WITH AD VS FASTER AND WITHOUT AD TO DECREASE DEVIATIONS AT THIS POINT. PATIENT TRANSFERS INDEP'LY FROM SIT TO STAND TO WALKER BUT VERY DEPENDENT ON UE'S WITH TRANSFERS. UNALBE TO VIEW INCISIOND DUE TO BANDAGING BUT NO SIGNS OF DRAINAGE OR EXCESSIVE REDNESS AROUND THE INCISION. HE DOES HAVE A LITTLE NUMBNESS AROUND THE INCISION BUT OTHERWISE LIGHT TOUCH SENSATION IS INTACT AND SYMMETRICAL. PATIENT IS ABLE TO INDEP'LY TRANSFER FROM SIT TO SUPINE BUT WITH A LOT OF GUARDING AND C/O'S OF PAIN. HE WAS ABLE TO LIFT HIS RIGHT LEG ONTO THE BED WITHOUT USING UE'S. HE IS UNABLE TO GET HIS RIGHT KNEE STRAIGHT. HE ADMITS TO PROPING HIS RIGHT KNEE IN BED FOR COMFORT THE LAST TWO DAYS. HE ALSO ADMITS TO NOT DOING HIS HOME EX'S. RIGHT KNEE AROM IN SUPINE WITH A HEEL SLIDE IS -10 DEG EXT TO 112 DEG FLEX. MMT: LLE 5/5 EXCEPT HIP GRADED 4/5 AND TESTING OF HIP PROVOKES A LITTLE BIT OF INCREASED RIGHT HIP PAIN. RLE MMT: HIP FLEX 3- /5, KNEE EXT 3-/5, KNEE FLEX 3-/5, ANKLE DORSI 5/5. ROM: IN ADDITION TO RIGHT KNEE ROM DEFICITS NOTED ABOVE, PATIENT HAS TIGHT HIP FLEXORS ON THE RIGHT. RIGHT HIP FLEXION TO 90 DEG. PATIENT REPORTS 5/10 PAIN LYING DOWN ON HIS BACK ATTEMPTING TO GET HIS RIGHT LEG OUT STRAIGHT. THE RIGHT LE APPEARS TO BE SIGNIFICANTLY LONGER IN STANDING AND IN LYING THAN THE LEFT NOW AND PATIENT REPORTS IT WAS THE OTHER WAY AROUND BEFORE SURGERY. TREATMENT: PATIENT WAS SEEN TODAY FOR REVIEW OF THR PRECAUTIONS AND REVIEW OF CURRENT HEP. HEP INSTRUCTIONS FOR ANKLE PUMPS, HEEL SLIDES, QUAD SETS, GLUTE SETS AND SLR'S 3 TIMES A DAY WORKING UP TO 3 SETS OF 10 EACH. INSTRUCTIONS ALSO GIVEN FOR APPROPRIATE ACTIVITY MODIFICATIONS ESPECIALLY IN TERMS OF LIMITING PROLONGED SITTING IN THE RECLINER. PATIENT COMMUNICATED A GOOD UNDERSTANDING OF ALL INSTRUCTIONS AFTER GIVEN. OTHER: PATIENTS PRESENT THROUGHOUT SESSION. - Goals Goal 1:: INDEP AND SAFE GAIT ON ALL SURFACES WITH LEAST ASSISTIVE DEVICE Goal Time Frame: 4-6 Weeks Goal 2:: INCREASE FUNCTIONAL ROM OF RIGHT LE TO EASE ADL'S Goal Time Frame: 4-6 Weeks Goal 3:: INCREASE FUNCTIONAL STRENGTH OF RIGHT LE TO HELP PATIENT RETURN TO PRIOR LEVEL OF FUNCTION Goal Time Frame: 4-6 Weeks Goal 4:: INDEP HEP Goal Time Frame: 4-6 Weeks - Rehabilitation Potential Rehabilitation Potential: Good - Anticipated Interventions Patient/Client Instruction: Educate patient on: Condition, Plan of Care, Risk Factors, Benefits of Fitness Program For the Purpose of:: To improve self management Therapeutic Exercise to Include: Strength training, Body mechanics, Postural training, Flexibilty training, Gait and locomotor training, Active ROM For the Purpose of:: To increase tolerance to activity/condition/position, To improve performance and independence with ADL's, To improve ability of physical actions for home/community/work/leisure, To improve gait and locomotor functions Thank you for the opportunity to evaluate your patient. For Medicare and Medicare HMO plans, please review the plan of care and approve it. It will need to be FAXED BACK to us at [phone] for Medicare purposes. Please let me know if there are questions or concerns regarding this plan of care. Physician Signature: Date:
--- NOTE | 2017-11-14 14:58 | HP.PTDCSUM_ITS ---
HP - PT D/C Summary It has been my pleasure to treat ESTELLE ROWLAND under orders from Ian Logan DO, for the diagnosis of S/P RIGHT THR 10/11/17 for a total of 10 visit(s). Discharge Date: 11/14/17 Please see the following information for a summary of their discharge status. - Subjective Subjective: PATIENT REPORTS HE FEELS REALLY GOOD. HE DOES STILL TIRE OUT EASY BUT HE STATES IT IS BECAUSE HE HASN'T BEEN ACTIVE ENOUGH. HE APPLIED FOR A JOB TODAY. HE WANTS TO WORK PART-TIME. PATIENT REPORTS HE CAN LIE ON BOTH SIDES NOW AND OTHER THAN A LITTLE STIFFNESS IN BOTH HIPS AFTER SITTING HE ISN'T HAVING ANY ISSUES (OTHER THAN BEING LAZY AND NOT DOING HIS EX'S). HE IS STATES HE IS VERY THANKFUL FOR THE SURGERY AND THERAPY. PATIENT REPORTS IF HE DOES ANY MORE PT IT WILL BE FOR HIS NECK/LUE BUT IT IS GETTING BETTER. APPOINTMENT WITH DR. LOGAN IN ABOUT 10 DAYS. - Pain RIGHT HIP Pain Intensity (Out of 10): 0 Left Arm Pain Intensity (Out of 10): 0 - Overall Improvement % Improvement: 100 - Objective Objective/Function: THIS PATIENT AMBULATES INDEP'LY INTO PT WITHOUT ANY ASSISTIVE DEVICES AND NO LOSS OF BALANCE HOWEVER HE HAS A MAJOR LIMP ON THE RIGHT LE UPON INITIATING GAIT AFTER SITTING FOR ABOUT 5 STEPS OR SO THEN HIS GAIT SMOOTHS OUT BUT MILD LIMP ON THE RIGHT LE CONTINUES. THE RIGHT LE IS SIGNIFICANTLY LONGER THAN THE LEFT AND PATIIENT REPORTS THAT WAS DR. LOGAN'S PLAN. RIGHT KNEE AROM IN SUPINE WITH A HEEL SLIDE = FULL RIGHT KNEE EXT TO 135 DEG FLEX. MMT: LLE 5/5. RLE MMT: HIP FLEX 4-/5, KNEE EXT 4/5, KNEE FLEX 4+/5 , ANKLE DORSI 5/5. PATIENT IS NOW ABLE TO GET COMFORTABLE IN SUPINE LYING WITH RIGHT LE EXTENDED WITHOUT PAIN. NOTE - BEFORE SURGERY, PATIENT REPORTS THE LLE WAS LONGER THAN THE RIGHT. ORLIN LE LIGHT TOUCH SENSATION IS INTACT AND SYMMETRICAL. SLS ON THE LLE IS GOOD BUT HE IS UNABLE TO SLS ON THE RIGHT LE FOR MORE THAN A FEW SECONDS WITHOUT UE ASSIST. PATIENT IS INDEP WITH HEP. - Goals Goal 1:: INDEP AND SAFE GAIT ON ALL SURFACES WITH LEAST ASSISTIVE DEVICE Goal Progress: Goal Met Goal 2:: INCREASE FUNCTIONAL ROM OF RIGHT LE TO EASE ADL'S Goal Progress: Goal Met Goal 3:: INCREASE FUNCTIONAL STRENGTH OF RIGHT LE TO HELP PATIENT RETURN TO PRIOR LEVEL OF FUNCTION Goal Progress: Goal Met Goal 4:: INDEP HEP Goal Progress: Goal Met - Plan Plan: D/C TO FOLLOW UP WITH DR. LOGAN IN ABOUT 10 DAYS. WE WOULD BE HAPPY TO RESUME PT IF PATIENT DOES NOT CONTINUE TO MAKE PROGRESS INDEP'LY BUT HE WOULD LIKE TO BE DISCHARGED AND PLANS TO START WORKING SOON POSSIBLE. - D/C Information If there are questions or concerns regarding this patient's physical therapy, please feel free to call me at [phone]. Thank you for the referral of this patient. Sincerely, Trena Aragon
== END 2017-11-14 19:00 | disposition home or self-care (01) ==
LOC: PT 14:00
PROVIDERS: Visit Provider Orthopaedic Surgery
DX: Z96.641 Presence of right artificial hip joint (principal)
CPT/HCPCS: 97110; 97116; 97162; 97530

== ENCOUNTER → 2018-04-27 17:47 | Outpatient (CLI) | payer SELFPAY ==
--- NOTE | 2018-04-27 17:50 | MRI_ITS ---
STUDY: MRI BRAIN WITHOUT CONTRAST REASON FOR EXAM: Male, 63 years old. Memory problems and dizziness when driving TECHNIQUE: Standardized multiplanar fat and water weighted pulse sequences were obtained. COMPARISON: None. FINDINGS: Normal size of the ventricles and extra-axial spaces for the patient's age. Multiple small scattered punctate white matter lesions in the centrum semiovale and hall radiata bilaterally likely due to ischemic changes in patient of this age... Normal bilateral basal ganglia. Normal thalami. There is no extra-axial fluid accumulation. Normal flow voids within the major intracranial circulation suggesting patency by spin echo criteria. Normal sella turcica, pituitary gland, infundibular stalk, optic chiasm and hypothalamus. Normal tectal plate and pineal gland. Normal midbrain, satnam and medulla. Normal cerebellum. Normal basal cisterns. Normal bilateral temporal bones. Normal bilateral internal auditory canals. Postsurgical changes of the orbits.. Normal visualized paranasal sinuses. Normal calvarium and skull base. Normal visualized soft tissue structures. Normal visualized upper cervical spine. MRI/Brain without Contrast IMPRESSION: Mild periventricular white matter ischemic changes without evidence for acute infarct. Electronically Signed: Alexi Carrasco MD at 19:39 EDT , Service support ,
== END ==
PROVIDERS: Family Provider Family Medicine; PCP Family Medicine
DX: G45.8 Other transient cerebral ischemic attacks and related syndromes (principal)
CPT/HCPCS: 70551

== ENCOUNTER → 2018-05-01 12:44 | Outpatient (CLI) | payer SELFPAY ==
--- NOTE | 2018-05-01 12:55 | CDU_ITS ---
Reason For Study: Trancient Cerebral Ischem Rt. Velocities/BP Lt. Velocities/BP Prox CCA 98.2/16.5 cm/sec. Prox CCA 96.6/16.1 cm/sec. Mid CCA 103/24.4 cm/sec. Mid CCA 101/23.6 cm/sec. Dist CCA 80.1/18.9 cm/sec. Dist CCA 70.4/14.7 cm/sec. Prox ICA 83.8/19.9 cm/sec. Prox ICA 66.8/18.2 cm/sec. Mid ICA 81.5/25.8 cm/sec. Mid ICA 134/47.9 cm/sec. Dist ICA 75.6/24 cm/sec. Dist ICA 60.1/17.3 cm/sec. Rt. ICA/CCA = 0.85. Lt. ICA/CCA = 1.39. Prox ECA 94.3/7.07 cm/sec. Prox ECA 106/24 cm/sec. Rt. Vert. 37.9/10.5 cm/sec. Lt. Vert. 43.2/15.3 cm/sec. Right Extracranial There is no significant atherosclerotic plaque noted in the right common carotid artery. There is heterogeneous, smooth atherosclerotic plaque noted in the right internal carotid artery. There is no significant atherosclerotic plaque noted in the right external carotid artery. Antegrade flow is noted in the right vertebral artery. Left Extracranial There is heterogeneous, irregular atherosclerotic plaque noted in the left common carotid artery. There is no significant atherosclerotic plaque noted in the left internal carotid artery. The left internal carotid artery is very tortuous. There is heterogeneous, irregular atherosclerotic plaque noted in the left external carotid artery. Antegrade flow is noted in the left vertebral artery. Procedure Carotid Duplex [id number]. Exam performed in department. Interpretation Summary Mild (<50%) stenosis right extracranial internal carotid. No significant atherosclerotic plaque or stenosis noted in the left internal carotid artery. Flow within the vertebral arteries is antegrade bilaterally. Ordering Physician: BRYAN WARREN Referring Physician: Benjamin Cruz MD Performed By: Tita Petit RVT, RDCS and Student
== END ==
PROVIDERS: Family Provider Family Medicine; PCP Family Medicine; Visit Provider Surgery
DX: G45.8 Other transient cerebral ischemic attacks and related syndromes (principal)
CPT/HCPCS: 93880

== ENCOUNTER → 2019-07-16 08:13 | Outpatient (CLI) | payer SELFPAY ==
[2019-07-16 08:08] VITALS: BMI 29.9
--- NOTE | 2019-07-16 08:14 | RAD_ITS ---
STUDY: X-RAY - PELVIS AND RIGHT HIP REASON FOR EXAM: Male, 64 years old. Pain TECHNIQUE: 3 views of the pelvis and hip. COMPARISON: 24 October 2017 FINDINGS: There is bipolar acetabulum screws secured total hip arthroplasty on the right. Hardware components are intact and in the expected position with normal bone interface. There is no heterotopic ossification. Remainder of the bones of the pelvis are intact and left hip is unremarkable. There are moderately extensive vascular calcifications in the right upper thigh. Appearance is similar to prior. RAD/HIP, UNI W/ Pelvis 2-3 Views IMPRESSION: Stable expected appearance of right total hip arthroplasty. Electronically Signed: Chris Frances, at 18:57 EST Tel , Service support ,
== END ==
PROVIDERS: Family Provider Family Medicine; PCP Family Medicine; Referring Provider Orthopaedic Surgery; Visit Provider Orthopaedic Surgery
DX: M25.551 Pain in right hip (principal); Z96.641 Presence of right artificial hip joint
CPT/HCPCS: 73502

== ENCOUNTER → 2019-08-13 09:24 | Outpatient (CLI) | payer SELFPAY ==
[2019-06-26 15:21] VITALS: BMI 29.9
[2019-07-16 08:08] VITALS: BMI 29.9
--- NOTE | 2019-08-13 09:25 | STEWCON_ITS ---
Reason For Study: CAD Stress Results Protocol: Pawel Protocol Maximum Predicted HR: 156 bpm Target HR: 133 bpm % Maximum Predicted HR: 90 % DurationHeart Rate Stage (mm:ss) (bpm) BP Comment Baseline 72 122/80No Chest Pain; 4 ML Diluted Definity Pawel Protocol Stage I 3:00 111 128/72No Chest Pain Pawel Protocol Stage II 3:00 131 140/90No Chest Pain; Mild Dyspnea Pawel Protocol Stage III 1:00 141 / No Chest Pain; Moderate Dyspnea Recovery 86 130/80No Chest Pain Stress Duration: 7:00 mm:ss Maximum Stress HR: 141 bpm METS: 10 Baseline Echocardiogram Findings The estimated ejection fraction is 65 %. Stress Echo Wall motion Data Resting WM Intermediate WM Stress WM Resting Wall Motion Wall Motion Stress No regional wall motion No regional wall motion abnormalities noted. abnormalities noted. EKG Data The baseline ECG displays normal sinus rhythm. The patient exercised according to the regular Pawel protocol for a total duration of 7:00. The maximum heart rate attained was 155 beats per minute. This was 99% of maximum predicted heart rate. The patient exercised into stage 3 of the Pawel protocol. During stress, there were no ST or T wave changes noted to suggest ischemia. No clinical angina was noted. Interpretation Summary The estimated ejection fraction is 65 %. Normal, adequate, treadmill echocardiogram. Negative for ischemia by EKG and echocardiographic criteria. No anginal symptoms noted. Rare PVCs noted. Appropriate blood pressure response to exercise. Average exercise capacity for age. Test terminated due to dyspnea. Final LVEF is 75%. Decreased sensitivity due to poor echo windows requiring Definity agent. Patient tolerated the procedure well. No complication. The study was technically difficult. Contrast injection was performed. Ordering Physician: Nikolas Nix M.D. Referring Physician: Benjamin Cruz M.D. Performed By: Tita Petit, PHILLIP, RVT
--- NOTE | 2019-08-13 09:25 | ECHOD_ITS ---
Reason For Study: CAD/ASHD Procedure This was a 2D Doppler, Color Flow transthoracic echocardiogram. Exam performed in department. Left Ventricle Mild concentric left ventricular hypertrophy. The estimated ejection fraction is 55 %. Stage 1 diastolic dysfunction. No regional wall motion abnormalities noted. Right Ventricle Normal size and thickness. Normal systolic function. Atria Normal left atrium. Normal right atrium. Normal atrial septum. Mitral Valve The mitral valve is structurally normal. No prolapse or stenosis seen. Trivial mitral valve insufficiency. Tricuspid Valve Normal tricuspid valve. Unable to estimate RV systolic pressure due to insufficient tricuspid regurgitant envelope. Aortic Valve Trisinus/trileaflet aortic valve. Mild diffuse aortic valve calcification. Trivial aortic valve insufficiency. Pulmonic Valve Normal pulmonic valve. Great Vessels Normal aortic root. Normal arch. Normal inferior vena cava. Inferior vena cava collapse with sniff. Pericardium/Pleural No pericardial effusion. MMode/2D Measurements & Calculations LVIDd: 4.9 cm IVSd: 1.5 cm Ao root diam: 2.6 cm LVIDs: 3.6 cm LVPWd: 1.0 cm RVDd: 3.5 cm FS: 25.7 % LAV(MOD-bp): 54.7 ml LVAd ap4: 29.8 cm2 SV(MOD-sp4): 52.4 ml LAV(MOD-bp) Indexed: 27.9 ml/m2 EDV(MOD-sp4): 100.8 ml LAV(MOD-sp2): 52.4 ml EDV(sp4-el): 106.8 ml LAV(MOD-sp4): 48.8 ml LVAs ap4: 19.0 cm2 ESV(MOD-sp4): 48.4 ml ESV(sp4-el): 50.6 ml EF(MOD-sp4): 52.0 % EF(sp4-el): 52.6 % SV(sp4-el): 56.1 ml LA A4 area: 18.1 cm2 LA dimension(2D): 4.1 cm RA A4 area: 17.3 cm2 Doppler Measurements & Calculations MV E max khari: 74.7 cm/sec Lat Peak E' Khari: 8.4 cm/sec Med Peak E' Khari: 7.6 cm/sec MV A max khari: 78.9 cm/sec E/E' lat: 8.9 E/E' med: 9.8 MV E/A: 0.95 Ao V2 max: 122.1 cm/sec LV V1 max: 102.7 cm/sec PA V2 max: 96.4 cm/sec Ao max P.0 mmHg LV V1 max P.2 mmHg Ao V2 mean: 91.1 cm/sec Ao mean P.5 mmHg Ao V2 VTI: 26.6 cm Interpretation Summary The estimated ejection fraction is 55 %. Stage 1 diastolic dysfunction. Trivial mitral valve insufficiency. Unable to estimate RV systolic pressure due to insufficient tricuspid regurgitant envelope. Trivial aortic valve insufficiency. There is no comparison study available. Ordering Physician: Nikolas Nix Referring Physician: Nikolas Nix Performed By: Tita Petit RDCS, RVT
== END ==
PROVIDERS: Family Provider Family Medicine; PCP Family Medicine; Referring Provider Internal Medicine Cardiovascular Disease; Visit Provider Internal Medicine Cardiovascular Disease
DX: I10 Essential (primary) hypertension (principal); I25.2 Old myocardial infarction; I25.10 Atherosclerotic heart disease of native coronary artery without angina pectoris; E11.9 Type 2 diabetes mellitus without complications; E78.5 Hyperlipidemia, unspecified; Z95.5 Presence of coronary angioplasty implant and graft
CPT/HCPCS: 93017; 93306; 93350; Q9957; A4216; C8928

== ENCOUNTER 2019-09-09 22:44 | Emergency (ER) | payer SELFPAY ==
[2019-07-16 08:08] VITALS: BMI 29.9
[2019-09-09 22:44] VITALS: BP 138/105; PULSE 118; RESP 17; TEMP 36.4; O2SAT 96; BMI 30.7
--- NOTE | 2019-09-09 22:47 | ED.RN ---
THIS RN CONTACTED [facility] RESPIRATORY THERAPIST FOR EKG.
[2019-09-09 22:50] VITALS: O2SAT 97
[2019-09-09 23:07] VITALS: O2SAT 94
--- NOTE | 2019-09-09 23:07 | EKG12_ITS ---
Test Reason : CP/SOB Blood Pressure : / mmHG Vent. Rate : 085 BPM Atrial Rate : 085 BPM P-R Int : 130 ms QRS Dur : 094 ms QT Int : 372 ms P-R-T Axes : 049 001 057 degrees QTc Int : 442 ms Normal sinus rhythm Nonspecific ST abnormality Abnormal ECG Confirmed by NUZHAT ALFARO, JATINDER ([id number]), manager editorial STACEY ONEAL ([id number]) on 09/12/2019 1:39:20 PM Referred By: BRENT Confirmed By:JATINDER NOLAND MD
--- NOTE | 2019-09-09 23:07 | RAD_ITS ---
HISTORY: BACK PAIN RADIATING INTO CHEST TODAY, ELEVATED BP, HX CAD EXAM: XR Chest 2 Views: COMPARISON: None FINDINGS: # of images incl. paperwork: 2 Thoracic spondylosis. Lungs are clear. Heart is not enlarged. Calcific plaque within the aortic arch Pulmonary vascularity is distinct. No effusions. RAD/Chest PA and Lateral IMPRESSION: No acute cardiopulmonary disease perceived. at 2353 Reported and signed by: Erik Awan MD Electronically Signed: Erik Awan MD at 23:52 EST Tel , Service support ,
--- NOTE | 2019-09-09 23:07 | ED.VIS.GEN ---
History of Present Illness Chief Complaint: Shortness of Breath Informant: Patient Narrative: Patient with a history of coronary artery disease and a remote stent comes in with pain. He stated he stood up after having a bowel movement and felt intense pain in his low back that radiated through his whole body up into his upper back and chest. It lasted for few seconds. It went away and he experienced this 2 more times. It only lasts for a few seconds. It seemed to take his breath away for short period of time. No home treatment other than waiting. It has not come back since. This happened approximately an hour ago. This concerned him as he has a history of coronary artery disease and had a remote stent. He recently had a negative stress test and echocardiogram of his heart last month per patient. He is followed by Dr. Nix. He took his daily aspirin today. He is never felt discomfort like this before. Current severity is resolved. He took his blood pressure at home and it was 170 systolic which concerned him. Denies any history of aortic dissection running in his family. Denies any pulmonary embolism risk factors. - Past Medical History (1) History of non-ST elevation myocardial infarction (NSTEMI) Status: Chronic (2) Stented coronary artery Status: Chronic Comment: Integrity bare metal stent to Proximal RI, (3.0 X 15 mm) 10/06/2011 @ [facility] [place], [place]. per Dr. Sebastian Nichole (3) Atherosclerosis of coronary artery of [place] heart without angina pectoris Status: Chronic Comment: Integrity bare metal stent to Proximal RI, 10/06/2011 (3.0 X 15 mm) @ [facility]/[place], [place]. per Dr. Sebastian Nichole (4) Hyperlipidemia Status: Chronic (5) Hypertension Status: Chronic (6) Diabetes mellitus, type II Status: Chronic (7) Asthma Status: Chronic (8) Moderate asthma without complication Status: Acute (9) Acute asthma flare Status: Acute (10) Acute bronchitis Status: Acute Past Medical History - Allergies and Home Meds Allergies/Adverse Reactions: Allergies amoxicillin Allergy (Verified 09/09/19 22:44) Unknown Penicillins Adverse Reaction (Intermediate, Verified 09/09/19 22:44) Nausea, ears plugged Primary Care Physician: El Cruz MD [Primary Care Provider] - Prior records reviewed: Yes Past Medical History: - - See problem list Surgical History: tonsillectomy, - - Cardiac stent, right hip Lives: With Family Smoking Status: Never smoker Alcohol: None Drugs: None Review of Systems General: Denies: Chills, Fever, Sweats Eyes: Denies: Visual changes - bilaterally, Diplopia ENT: Denies: Rhinorrhea, Sore throat Cardiovascular: Reports: Chest pain. Denies: Palpitations Respiratory: Reports: Dyspnea. Denies: Cough, Dyspnea on exertion Gastrointestinal: Denies: Abdominal pain, Nausea, Vomiting, Diarrhea, Melena, Hematochezia Genitourinary: Denies: Dysuria, Hematuria, Frequency Musculoskeletal: Reports: Back pain. Denies: Extremity Pain Skin: Denies: Rash, Wounds Neurological: Denies: Headache, Weakness, Numbness Physical Exam Vital Signs/Narrative: Vital Signs Temp Pulse Resp BP Pulse Ox 09/09/19 22:44 97.5 F L 118 H 17 138/105 H 96 General: Well nourished, Well developed, No Acute Distress Head: Normocephalic, Atraumatic Eyes: Perrl, EOMI ENT: Moist mucous membranes, No rhinorrhea Neck: Supple, Nontender Cardiovascular: Regular rate, Regular rhythm, No murmurs Respiratory: No distress, CTA bilaterally, Chest nontender Abdomen: Soft, Nontender, Nondistended, Normal bowel sounds Back: Nontender, Normal Inspection Extremities: Nontender, No edema Skin: Normal color, No rash Neurological: Alert, Oriented x3, Cranial nerves II-XII grossly intact, Normal Strength, Normal Sensation Psychological: Normal affect, Normal Mood Diagnostic/Tx/Re-eval - Medical Decision Making EKG obtained shows sinus rhythm at a rate of 85. No STEMI or acute ischemic findings. Lab work and chest x-ray obtained. Chest x-ray shows nothing acute. Lab work shows nothing acute. Troponin negative. CBC normal. Kidney function normal. Patient reassured on reevaluation. Blood pressure down to 135 systolic over 79 diastolic on repeat. No repeat body discomfort like he experienced before. I offered him a delta troponin. He does not feel he wants to stay for this. Understands the risks. He will be discharged to follow-up. Due to the transient nature of the symptoms I do not feel is cardiac pulmonary embolism or dissection related. I did review his negative stress echocardiogram last month. He will return if he worsens or this comes back. ED Disposition - Plan for ED Patient: Disposition: Home or Assisted Living Diagnosis: Back pain, Chest pain at rest Instructions: CHEST PAIN, Uncertain Cause Referrals: El Cruz MD [Primary Care Provider] -
[2019-09-09 23:13] LABS: Absolute Lymphocyte Count 2.62 X10^3/uL (0.83-4.51); Absolute Neutrophil Count 6.7 X10^3/uL (2.0-7.7); Basophil# 0.07 X10^3/uL; Basophil% 0.6 % (0-1); Eosinophils% 5.6 % (0-5); Hematocrit 45.4 % (40-54); Hemoglobin 15.1 g/dL (13.0-16.5); Lymphocyte # 2.62 X10^3/ul (4.0); Lymphocyte % 24.3 % (19-41); Mean Corp Hgb Conc 33.3 g/dL (32-36); Mean Corpuscular Hgb 30.4 pg (27.0-32.0); Mean Corpuscular Volume 91.5 fL (80-94); Mean Platelet Vol. 10.2 fl (6.2-12.0); Monocyte% 6.5 % (0-10); NRBC Flagged by Analyzer 0 % (0-5); Neutrophil # 6.71 X10^3/uL (2.7-7.7); Neutrophil % 62.2 % (47-70); Platelet Count 271 K/mm3 (150-450); RBC Distribution Width CV 13.3 % (11.6-14.6); RBC Distribution Width SD 44.8 fl (35.1-43.9); Red Blood Count 4.96 M/mm3 (4.6-6.2); White Blood Count 10.8 K/mm3 (4.4-11.0)
[2019-09-09 23:27] LABS: Anion Gap 5 (5-15); BUN 8 mg/dL (7-18); Calcium,Total 9.1 mg/dL (8.5-10.1); Chloride 104 mmol/L (98-107); EST Glomerular Filtration Rate 80 mL/min (>60); Est Glom Filt Rate - Afr Amer 97 mL/min (>60); Estimated Creatinine Clearance 67.34 ml/min; Glucose 160 mg/dL (74-106); Potassium 3.1 mmol/L (3.5-5.1); Sodium Level 138 mmol/L (136-145)
[2019-09-09 23:44] VITALS: BP 139/83; PULSE 72; RESP 19; O2SAT 94
[2019-09-10] VITALS: BP 139/83; PULSE 72; RESP 19; O2SAT 94
[2019-09-10 00:13] VITALS: BP 139/83; PULSE 72; RESP 19; O2SAT 94
== END 2019-09-10 00:17 | disposition home or self-care (01) ==
PROVIDERS: Emergency Provider Emergency Medicine; PCP Family Medicine
DX: R07.89 Other chest pain (principal); M54.9 Dorsalgia, unspecified; R06.00 Dyspnea, unspecified; I25.2 Old myocardial infarction; I25.10 Atherosclerotic heart disease of native coronary artery without angina pectoris; E78.5 Hyperlipidemia, unspecified; I10 Essential (primary) hypertension; E11.9 Type 2 diabetes mellitus without complications; J45.909 Unspecified asthma, uncomplicated; Z95.5 Presence of coronary angioplasty implant and graft; Z79.84 Long term (current) use of oral hypoglycemic drugs; Z79.82 Long term (current) use of aspirin; Z79.899 Other long term (current) drug therapy
CPT/HCPCS: 71046; 80048; 84484; 85025; 93005; 99284; A4216

== ENCOUNTER → 2020-05-30 09:36 | Outpatient (CLI) | payer MEDICARE, SELFPAY ==
[2020-05-30 13:03] LABS: AST(SGOT) 24 U/L (15-37); Alanine Aminotransfer ALT/SGPT 43 U/L (16-61); Albumin, Serum 3.7 g/dL (3.2-5.0); Alkaline Phosphatase 80 U/L (45-117); Anion Gap 5 (5-15); BUN 10 mg/dL (7-18); BUN/Creat Ratio 10.9 RATIO (10-20); Calcium,Total 8.5 mg/dL (8.5-10.1); Chloride 105 mmol/L (98-107); Cholesterol 101 mg/dL (200); Creatinine, Serum 0.92 mg/dL (0.70-1.30); EST Glomerular Filtration Rate 88 mL/min (>60); Est Glom Filt Rate - Afr Amer 107 mL/min (>60); Globulin 3.6 g/dL (2.2-4.2); Glucose 126 mg/dL (74-106); High Density Lipoprotein 32 mg/dL; PSA,Total - Annual Screen 3.81 ng/mL (0.00-4.00); Potassium 3.3 mmol/L (3.5-5.1); Protein, Total 7.3 g/dL (6.4-8.2); Sodium Level 139 mmol/L (136-145); Thyroid Stim Hormone (TSH) 0.53 uIU/mL (0.358-3.74); Triglycerides 131 mg/dL; Very Low Density Lipoprotein 26 mg/dL (5-40)
== END ==
PROVIDERS: PCP Family Medicine; Referring Provider Family Medicine; Visit Provider Family Medicine
DX: E11.9 Type 2 diabetes mellitus without complications (principal); N40.0 Benign prostatic hyperplasia without lower urinary tract symptoms; Z12.5 Encounter for screening for malignant neoplasm of prostate
CPT/HCPCS: 36415; 80053; 80061; 84153; 84403; 84443; G0103

== ENCOUNTER → 2021-05-14 13:54 | Outpatient (CLI) | payer MEDICARE, SELFPAY ==
[2021-05-25 16:19] LABS: Bacteria 0 SEEN /hpf (None Seen); Mucous, Urine 0 SEEN /hpf (<or=2+); Red Blood Cells-Urine 0 SEEN /hpf (0-5); Squamous Epithelial Cells - UA 0 SEEN /hpf (0-5)
[2021-05-25 17:48] LABS: Color, Urine Yellow (Yellow); Glucose, Dipstick Normal (Normal); Ketone-Dipstick Negative (Negative); Leukocyte Esterase-Dipstick 25 /ul (Negative); Nitrite-Dipstick Negative (Negative); Occult Blood-Urine Negative /ul (Negative); Protein-Dipstick 15 mg/dl (Negative); Specific Gravity, Urine 1.025 (1.002-1.030); Urine Bilirubin Dipstick Negative (Negative); Urine Clarity Clear (Clear); Urine Urobilinogen Normal (Normal)
[2021-05-25 17:59] LABS: White Blood Cells 0-5 SEEN /hpf (0-5)
[2021-05-25 18:08] LABS: AST(SGOT) 15 U/L (15-37); Alanine Aminotransfer ALT/SGPT 32 U/L (16-61); Albumin, Serum 3.6 g/dL (3.2-5.0); Alkaline Phosphatase 92 U/L (45-117); Anion Gap 9 (5-15); BUN 13 mg/dL (7-18); BUN/Creat Ratio 10.2 RATIO (10-20); Calcium,Total 8.6 mg/dL (8.5-10.1); Chloride 109 mmol/L (98-107); Cholesterol 102 mg/dL (200); Creatinine, Serum 1.28 mg/dL (0.70-1.30); EST Glomerular Filtration Rate 60 mL/min (>60); Est Glom Filt Rate - Afr Amer 72 mL/min (>60); Globulin 3.7 g/dL (2.2-4.2); Glucose 132 mg/dL (74-106); High Density Lipoprotein 31 mg/dL; Potassium 3.5 mmol/L (3.5-5.1); Protein, Total 7.3 g/dL (6.4-8.2); Sodium Level 142 mmol/L (136-145); Thyroid Stim Hormone (TSH) 0.61 uIU/mL (0.358-3.74); Triglycerides 214 mg/dL; Very Low Density Lipoprotein 43 mg/dL (5-40)
== END ==
PROVIDERS: PCP Family Medicine; Referring Provider Family Medicine; Visit Provider Family Medicine
DX: R31.9 Hematuria, unspecified (principal)
CPT/HCPCS: 36415; 80053; 80061; 81001; 84403; 84443; 87086

== ENCOUNTER → 2021-05-22 17:31 | Outpatient (CLI) | payer MEDICARE, SELFPAY ==
--- NOTE | 2021-05-22 17:42 | CT_ITS ---
STUDY: CT Abdomen And Pelvis W/O Contrast Injection 05/22/2021 6:20 PM REASON FOR EXAM: Male, 66 years old. Abdominal pain hematuria Individualized dose optimization techniques were used for this CT. COMPARISON: None. TECHNIQUE: CT Abdomen And Pelvis W/O Contrast Injection FINDINGS: There are atherosclerotic calcifications of visualized coronary arteries. The visualized portions of the heart are within normal limits. Normal liver. Normal gallbladder and extrahepatic biliary system. Normal spleen. Normal pancreas. Normal bilateral adrenal glands. 9.3 mm right renal calyceal stone. There is no obstruction. Left extrarenal pelvis Normal visualized stomach. Normal small intestine. There are multiple colonic diverticula consistent with diverticulosis. There is non-visualization of the appendix. There are calcifications of the abdominal aorta. This is consistent for atherosclerotic disease. There is no abdominal aortic aneurysm. Normal inferior vena cava. Subcentimeter mesenteric lymph nodes. Normal urinary bladder. There are prostatic calcifications. Normal abdominal wall. There are diffuse degenerative changes of the visualized lumbar spine. Vacuum disc phenomenon. There is bilateral neural foraminal stenosis at L4-5 and L5-S1. Total right hip arthroplasty. There is a left inguinal hernia containing fat. There is no bowel involvement. There is no incarceration. There is no findings suggesting that this is causing a bowel obstruction. IMPRESSION: (NOT LISTED IN ORDER OF SIGNIFICANCE) 9.3 mm right renal calyceal stone. There is no obstruction. Other findings as above. Electronically Signed: Joss Cole MD at 18:23 EDT , Service support , CT/Abdomen/Pelvis without Cont
== END ==
PROVIDERS: PCP Family Medicine; Referring Provider Family Medicine; Visit Provider Family Medicine
DX: R31.9 Hematuria, unspecified (principal)
CPT/HCPCS: 74176

== ENCOUNTER → 2021-05-25 16:14 | Outpatient (CLI) | payer MEDICARE, SELFPAY | PROVIDERS: PCP Family Medicine; Visit Provider Family Medicine | DX: Z00.00 Encounter for general adult medical examination without abnormal findings (principal) ==

== ENCOUNTER → 2021-06-26 11:27 | Outpatient (CLI) | payer MEDICARE, SELFPAY ==
[2021-06-26 13:03] LABS: PSA,Total - Annual Screen 3.64 ng/mL (0.00-4.00)
== END ==
PROVIDERS: PCP Family Medicine; Referring Provider Family Medicine; Visit Provider Urology
DX: N40.1 Benign prostatic hyperplasia with lower urinary tract symptoms (principal); Z12.5 Encounter for screening for malignant neoplasm of prostate
CPT/HCPCS: 36415; 84153; G0103

== ENCOUNTER 2021-09-09 17:06 | Outpatient (CLI) | payer MEDICARE, SELFPAY ==
[2021-09-09 17:51] LABS: Hematocrit 44.4 % (40-54); Hemoglobin 15.3 g/dL (13.0-16.5); Mean Corp Hgb Conc 34.5 g/dL (32-36); Mean Corpuscular Hgb 30.7 pg (27.0-32.0); Mean Corpuscular Volume 89.2 fL (80-94); Mean Platelet Vol. 10.8 fl (6.2-12.0); Platelet Count 248 K/mm3 (150-450); RBC Distribution Width CV 13.2 % (11.6-14.6); RBC Distribution Width SD 43.1 fl (35.1-43.9); Red Blood Count 4.98 M/mm3 (4.6-6.2); White Blood Count 8.4 K/mm3 (4.4-11.0)
[2021-09-09 18:29] LABS: Vitamin D,25 Hydroxy 15.6 ng/mL
[2021-09-10 07:59] LABS: Anion Gap 10 (5-15); BUN 11 mg/dL (7-18); BUN/Creat Ratio 10.9 RATIO (10-20); Calcium,Total 8.4 mg/dL (8.5-10.1); Chloride 105 mmol/L (98-107); Creatinine, Serum 1.01 mg/dL (0.70-1.30); EST Glomerular Filtration Rate 78 mL/min (>60); Est Glom Filt Rate - Afr Amer 95 mL/min (>60); Glucose 139 mg/dL (74-106); Magnesium 2.4 mg/dL (1.6-2.6); Potassium 3.6 mmol/L (3.5-5.1); Sodium Level 138 mmol/L (136-145); Thyroid Stim Hormone (TSH) 0.78 uIU/mL (0.358-3.74)
[2021-09-10 09:59] LABS: Hemoglobin A1c 7.6 % (3.8-5.6)
== END 2021-09-09 23:59 | disposition short-term general hospital (02) ==
LOC: MFPLAB 17:08
PROVIDERS: PCP Family Medicine; Referring Provider Family Medicine; Visit Provider Family Medicine
DX: R00.2 Palpitations (principal); E11.9 Type 2 diabetes mellitus without complications; R53.83 Other fatigue
CPT/HCPCS: 80048; 82306; 83036; 83735; 84403; 84443; 85027

== ENCOUNTER 2021-09-21 06:22 | Outpatient (CLI) | payer MEDICARE, SELFPAY ==
--- NOTE | 2021-09-21 08:26 | STRESSREP ---
Stress Test Report Date: 09-21-2021 Procedure: Exercise tolerance test/imaging study Indications: Chest pain; palpitations; dizziness; status post right hip replacement Consent: Per the patient Procedure: The patient exercised on a Pawel protocol for 4 minutes completing Stage I and 1 minute of Stage II achieving a peak heart rate of 150 bpm (97% predicted maximal heart rate) with a peak blood pressure 190/88 mmHg and a peak MET capacity of 7 METs. The baseline ECG demonstrated normal sinus rhythm. The peak exercise ECG demonstrated no obvious ECG changes. There were occasional PVCs pretest, during exercise, and recovery. The functional capacity was considered decreased. There was no complaint of chest discomfort during exercise or recovery. The examination was discontinued secondary to dyspnea. Impression: 1. Technically adequate (percent predicted maximal heart rate greater than 85%) exercise tolerance test 2. Peak exercise ECG with no obvious ECG changes 3. There were occasional PVCs pretest, during exercise, and recovery 4. Nuclear images pending Myocardial perfusion imaging study: Technique: The patient was injected with 14.1 mCi of technetium 99m Cardiolite and subsequently rest SPECT Cardiolite nuclear imaging was obtained in the horizontal long, vertical long, and short axis views. The patient exercised on a Pawel protocol for 4 minutes completing Stage I and 1 minute of Stage II achieving a peak heart rate of 150 bpm (97% predicted maximal heart rate) with a peak blood pressure 190/88 mmHg and a peak MET capacity of 7 The patient was injected with 45.0 mCi of technetium 99m Cardiolite and subsequently stress SPECT Cardiolite nuclear imaging was obtained in the horizontal long, vertical long, and short axis views. A gated Cardiolite study at peak stress was obtained. Interpretation: Rest and stress SPECT Cardiolite nuclear imaging status post realignment, normalization, and attenuation correction, demonstrates an element of body motion during image acquisition and otherwise the appearance of relative uniform tracer uptake and myocardial perfusion appearing within normal limits. There is end systolic thickening and brightening. The gated Cardiolite study demonstrates myocardial thickening and inward wall motion. The reported LVEF is 53%. Impression: 1. Rest and stress SPECT Cardiolite nuclear imaging demonstrate relative uniform tracer uptake and myocardial perfusion appearing within normal limits. 2. The gated Cardiolite study reports an LVEF of 53%. This note was generated with [employer] software. It may contain incorrect words, spelling, and punctuation that were not noted in checking the note before signing.
== END 2021-09-21 23:59 | disposition home or self-care (01) ==
LOC: CVS 06:28
PROVIDERS: PCP Family Medicine; Referring Provider Family Medicine; Visit Provider Family Medicine
DX: R00.2 Palpitations (principal); R94.31 Abnormal electrocardiogram [ECG] [EKG]
CPT/HCPCS: 78452; 93017; A9500

== ENCOUNTER 2021-12-02 16:46 | Outpatient (CLI) | payer MEDICARE, SELFPAY | END 2021-12-02 23:59 | disposition home or self-care (01) | PROVIDERS: PCP Family Medicine; Referring Provider Family Medicine; Visit Provider Family Medicine | DX: Z71.84 Encounter for health counseling related to travel (principal); Z11.59 Encounter for screening for other viral diseases | CPT/HCPCS: 87635; U0003; U0005 ==

== ENCOUNTER → 2021-12-04 | Outpatient (CLI) | payer MEDICARE, SELFPAY ==
[2021-12-04 18:01] LABS: Vitamin D,25 Hydroxy 63.1 ng/mL
== END | disposition home or self-care (01) ==
LOC: MFPLAB 16:27
PROVIDERS: PCP Family Medicine; Referring Provider Family Medicine; Visit Provider Family Medicine
DX: R53.83 Other fatigue (principal); R00.2 Palpitations; R79.89 Other specified abnormal findings of blood chemistry
CPT/HCPCS: 36415; 82306; 84403

== ENCOUNTER → 2022-11-11 | Outpatient (CLI) | payer MEDICARE, SELFPAY ==
[2022-11-11 10:28] LABS: ALB/GLOB Ratio 1.1 RATIO (0.9-2.4); AST(SGOT) 30 U/L (15-37); Alanine Aminotransfer ALT/SGPT 51 U/L (16-61); Albumin, Serum 3.6 g/dL (3.2-5.0); Alkaline Phosphatase 82 U/L (45-117); Anion Gap 6 (5-15); BUN 13 mg/dL (7-18); BUN/Creat Ratio 15.3 RATIO (10-20); Calcium,Total 8.8 mg/dL (8.5-10.1); Chloride 104 mmol/L (98-107); Cholesterol 130 mg/dL (200); Creatinine, Serum 0.85 mg/dL (0.70-1.30); EST Glomerular Filtration Rate 96 mL/min (>60); Est Glom Filt Rate - Afr Amer 116 mL/min (>60); Globulin 3.3 g/dL (2.2-4.2); Glucose 241 mg/dL (74-106); High Density Lipoprotein 34 mg/dL; Potassium 3.8 mmol/L (3.5-5.1); Protein, Total 6.9 g/dL (6.4-8.2); Sodium Level 136 mmol/L (136-145); Thyroid Stim Hormone (TSH) 1.14 uIU/mL (0.358-3.74); Triglycerides 221 mg/dL; Very Low Density Lipoprotein 44 mg/dL (5-40)
[2022-11-11 10:32] LABS: Vitamin B12 412 pg/mL (211-911)
== END | disposition home or self-care (01) ==
LOC: MFPLAB 08:11
PROVIDERS: PCP Family Medicine; Referring Provider Family Medicine; Visit Provider Family Medicine
DX: E11.9 Type 2 diabetes mellitus without complications (principal)
CPT/HCPCS: 36415; 80053; 80061; 82607; 84403; 84443

== ENCOUNTER 2023-01-26 09:35 | Observation (INO) | payer MEDICARE, SELFPAY ==
--- NOTE | 2023-01-19 12:05 | EKG12_ITS ---
Test Reason : PALPS Blood Pressure : / mmHG Vent. Rate : 092 BPM Atrial Rate : 092 BPM P-R Int : 104 ms QRS Dur : 094 ms QT Int : 396 ms P-R-T Axes : 017 -08 047 degrees QTc Int : 489 ms Sinus rhythm with short DC with frequent Premature ventricular complexes Confirmed by KISHAN ALFARO, TENA ([id number]), associate entertainment editor STACEY ONEAL ([id number]) on 01/20/2023 9:31:03 AM Referred By: Adrian Tarango Confirmed By:TENA HOLLEY MD
[2023-01-19 13:44] LABS: Hematocrit 45.5 % (40-54); Hemoglobin 15.2 g/dL (13.0-16.5); Mean Corp Hgb Conc 33.4 g/dL (32-36); Mean Corpuscular Hgb 30.2 pg (27.0-32.0); Mean Corpuscular Volume 90.5 fL (80-94); Mean Platelet Vol. 10.9 fl (6.2-12.0); Platelet Count 247 K/mm3 (150-450); RBC Distribution Width SD 42.9 fl (35.1-43.9); Red Blood Count 5.03 M/mm3 (4.6-6.2); White Blood Count 8.2 K/mm3 (4.4-11.0)
[2023-01-19 14:08] LABS: Anion Gap 5 (5-15); BUN 12 mg/dL (7-18); BUN/Creat Ratio 12.8 RATIO (10-20); Calcium,Total 8.9 mg/dL (8.5-10.1); Chloride 106 mmol/L (98-107); Creatinine, Serum 0.94 mg/dL (0.70-1.30); EST Glomerular Filtration Rate 85 mL/min (>60); Est Glom Filt Rate - Afr Amer 103 mL/min (>60); Glucose 242 mg/dL (74-106); Potassium 3.6 mmol/L (3.5-5.1); Sodium Level 137 mmol/L (136-145)
[2023-01-19 15:45] LABS: Hemoglobin A1c 8.7 % (3.8-5.6)
[2023-01-26] VITALS (12 sets, daily range): BP systolic 100–151; BP diastolic 62–86; PULSE 62–100; RESP 16–18; TEMP 36.1–37.3; O2SAT 90–100; BMI 29.9
[2023-01-26] MEDS: Lactated Ringers 1,000 ML 15 ML IV (06:51)
[2023-01-26 06:57] LABS: Bedside Glucose 211 mg/dL (74-106)
[2023-01-26] MEDS: Cefazolin 2 GM in 0.9% Normal Saline 100 ML IV (07:24)
--- NOTE | 2023-01-26 07:30 | PROST_PTH ---
PATIENT: ESTELLE ROWLAND LOC: [facility]3 U#:[id number] AGE/SX: 67/M ROOM: W[facility]319 RE01/26/[address]: Dr. Adrian Tarango MD : 1955 BED: 1 DIS: 01/27/2023 SPEC #: [id number] RECD: 01/26/23 10:03 STATUS: KATE JACKSON #: [id number] JULY: 01/26/23 07:[address]: Adrian Tarango DEPT: SURGICAL PATHOLOGY RECD BY: Cece Hernandez ENTERED: 01/26/23 11:45 SP TYPE: PROSTATE OTHR DR: MD Dr. Benjamin Ledezma MD Tissues: Prostate, NOS Procedures: Surgery Specimen Level V HEADER OPERATION: Lap robotic simple prostatectomy PRE-OP DIAGNOSIS: BPH with obstruction TISSUE SUBMITTED: Prostate tissue MICROSCOPIC DIAGNOSIS Prostate tissue, simple prostatectomy: Benign prostatic hyperplasia, glandular and stromal type. Chronic inflammation and squamous metaplasia. LEORA:bret 01/27/2023 MICROSCOPIC DESCRIPTION Slides are reviewed. GROSS DESCRIPTION Received in fixative is one container labeled with the patient's name and designated prostate tissue. The specimen consists of a simple prostatectomy specimen weighing 47 gm and measures 5.5 cm transversely, 5.0 cm anterior-posteriorly and 8.5 cm craniocaudally. The external surface is partly disrupted. Sections do not reveal any obvious mass lesion. Cast Iron Dipper sections are submitted in ten cassettes as follows: 1-5 ? right lobe, 6-10 ? left lobe. / LEORA:bret 01/26/2023 TC:5 CPT: 10063
--- NOTE | 2023-01-26 07:37 | PCM.HP.STD ---
HPI - General General Date of Admission: 01/26/23 Chief Complaint: BPH with obstruction HPI Narrative ESTELLE ROWLAND, is a 67 M who presents for a robotic simple prostatectomy he has a very large prostate causing obstruction [facility] Medical History Arthritis Asthma Atherosclerosis of coronary artery of [place] heart without angina pectoris Bruising Cardiology follow-up encounter Diabetes Diabetes mellitus, type II Easy bruising Essential hypertension Gastric reflux Hernia High cholesterol History of echocardiogram History of heart attack History of irregular heartbeat History of non-ST elevation myocardial infarction (NSTEMI) (10/06/11) History of pain when walking History of stress test Hyperlipidemia Hypertension Hypertension Non-smoker Prostate disease Rectal abnormality Rectal abnormality Syncope TIA (transient ischemic attack) (04/13/18) Tinnitus of both ears Home Medications albuterol sulfate 90 mcg/actuation aerosol inhaler (ProAir HFA) 2 puff inhalation Q6H PRN bronchospasm #18 grams 02/07/18 [Rx Last Taken 01/25/23] aspirin 81 mg tablet,delayed release (Adult Aspirin Regimen) 81 mg PO DAILY 06/26/19 [History Last Taken 01/16/23] atorvastatin 40 mg tablet 40 mg PO QHS CHOLESTEROL #90 tabs 06/30/20 [Rx Last Taken 01/25/23] tamsulosin 0.4 mg capsule 0.8 mg PO QHS 06/30/20 [History Last Taken 01/25/23] budesonide-formoterol HFA 80 mcg-4.5 mcg/actuation aerosol inhaler (Symbicort) 1 puff inhalation QHS 10/26/21 [History Last Taken 01/25/23] omeprazole 40 mg capsule,delayed release 40 mg PO DAILY 10/26/21 [History Last Taken 01/25/23] finasteride 5 mg tablet 5 mg PO DAILY 05/26/22 [History Last Taken 01/25/23] ramipril 10 mg capsule 10 mg PO DAILY #90 caps 07/19/22 [Rx Last Taken 01/25/23] metformin 500 mg tablet 500 mg PO DAILY 09/27/22 [History Last Taken 01/25/23] metoprolol succinate 50 mg tablet,extended release 24 hr 50 mg PO DAILY 09/27/22 [History Last Taken 01/25/23] dulaglutide 0.75 mg/0.5 mL subcutaneous pen injector (MondeCafes) 0.75 mg subcut QWEEK 01/13/23 [History Last Taken 01/25/23] Allergy/AdvReac Type Severity Reaction Status Date / Time amoxicillin Allergy Unknown Verified 01/26/23 06:46 Penicillins AdvReac Intermediate Nausea, Verified 01/26/23 06:46 ears plugged Family History Mother CVA (cerebral vascular accident) Surgical History History of cardiac catheterization History of cataract surgery History of hernia repair History of tonsillectomy History of total right hip arthroplasty RETINA SURGERY Stented coronary artery (10/06/11) Social History Smoking Status: Never smoker how long ago did patient quit smoking: only as teen, 2 packs entire lifetime alcohol intake: never Vital Signs Vital Signs Vital Signs: 01/26/23 06:47 01/26/23 06:47 Temperature 98.3 F Temperature Source Temporal Pulse Rate 78 Respiratory Rate 16 Respiratory Pattern Normal Blood Pressure 137/78 H Blood Pressure Mean 97 Blood Pressure Source Monitor Blood Pressure Position Semi-Fowlers Blood Pressure Location Left Arm Pulse Ox 99 Oxygen Delivery Method Room Air Weight Weight: 84 kg Body Mass Index (BMI) 29.9 Results Lab / Micro Data Result Diagrams: 01/19/23 12:36 01/19/23 12:36 Labs: Laboratory Results - last 24 hr 01/26/23 06:33: POC Glucose 211 H
[2023-01-26] MEDS: Lubricating Jelly 60 GM Tube 30 GM (08:28)
[2023-01-26] MEDS: Bupivacaine Mpf 0.5% 30 ML VIAL (09:31)
--- NOTE | 2023-01-26 09:39 | DCINST_ITS ---
Discharge Instructions Diet Discharge Diet: No restrictions, Light diet - advance as tolerated and Soft diet Activity Discharge Activity: May Not Drive Lifting Restrictions: no lifting Dressing / Incision Catheter: Carrera to leg bag and Carrera to large bag Drain: [place] Follow Up Care Please Follow Up With: Adrian Tarango MD When: Next to remove carrera Test Results: Test results from this visit will be discussed in further detail at your follow- up appointment, if applicable. Discharge Plan Admission Primary Reason for Your Visit: Simple prostatectomy Attending Provider: Adrian Tarango Primary Care Provider: El Cruz Consulting Providers: Naveed Davis Discharge Orders/Prescriptions Prescriptions: New ciprofloxacin HCl [Cipro] 500 mg tablet 500 mg PO BID Qty: 14 0RF oxycodone-acetaminophen [Endocet] 5-325 mg tablet 1 tab PO Q6H PRN (Reason: pain) 7 Days Qty: 14 0RF Continued albuterol sulfate [ProAir HFA] 90 mcg/actuation HFA aerosol inhaler 2 puff INHALATION Q6H PRN (Reason: bronchospasm) Qty: 18 1RF Rx Instructions: administer with spacer aspirin [Adult Aspirin Regimen] 81 mg tablet,delayed release (DR/EC) 81 mg PO DAILY Symbicort 80-4.5 mcg/actuation HFA aerosol inhaler 1 puff INHALATION QHS metformin 500 mg tablet 500 mg PO DAILY tamsulosin 0.4 mg capsule 0.8 mg PO QHS atorvastatin 40 mg tablet 40 mg PO QHS Qty: 90 3RF omeprazole 40 mg capsule,delayed release(DR/EC) 40 mg PO DAILY metoprolol succinate 50 mg tablet extended release 24 hr 50 mg PO DAILY finasteride 5 mg tablet 5 mg PO DAILY Trulicity 0.75 mg/0.5 mL pen injector 0.75 mg SUBCUT QWEEK Label Comments: INJECT 0.75MG(1 PEN) SUBCUTANEOUSLY ONCE WEEKLY Rx Instructions: cody ramipril 10 mg capsule 10 mg PO DAILY Qty: 90 3RF Referrals / Follow Up: El Cruz MD [Primary Care Provider] - Adrian Tarango MD [Med Staff - Active Staff] - Disposition Disposition (needs filled in before D/C Order can be placed): Home, Self Care
--- NOTE | 2023-01-26 09:40 | PCM.OPRPT ---
Report of Operation Date of Procedure: 01/26/23 Pre-Operative Diagnosis: BPH with obstruction very large prostate Post-Operative Diagnosis: Same Surgery/Procedure Performed:: Robotic simple prostatectomy Description of Surgical Findings:: Indication is a 67-year-old male history of a significantly enlarged prostate with obstruction he has incomplete bladder emptying and significant urinary symptoms so because of this recommended we proceed with surgical intervention. Has been on medical therapy and has failed medical therapy. We talked about the risk of surgery risk of bleeding infection bladder control problems after surgery he will need a catheter for about a week. Patient was taken back to the operating room at the smooth induction of general anesthesia he was placed supine on the table the abdomen was shaved prepped and draped in usual sterile fashion made a small incision above the umbilicus placed the umbilicus port into the umbilicus and insufflated the abdomen with CO2 gas placed my right arm port and left left arm port and then air seal port. First reflected the colon off the lateral sidewalls and then with a Blancas catheter was placed into the bladder and we filled the bladder with output 250 cc of normal saline I then in opened up the bladder in the midline and then we used a Vikash needle to retract the bladder wings laterally then once we got inside the bladder identified the prostate and the left and right ureter orifices were identified I then scored circumferentially all the way around the prostate the prostate off the muscle of the bladder I then identified the adenomatous plane on the right side and the left side we got first below the prostate and we dissected between the adenoma and the pseudocapsule all the way posteriorly then we worked our way laterally on the adenoma on the right side and then laterally in her abnormal left side base that he had 2 very large adenomas both the adenomas were dissected all the way down to the apex we then came across the urethral strip and then the urethral strip was cut Blancas catheter was then seen at this point and then both the adenomas were removed intact both of them together and then placed in the large Endo Catch bag we then cauterized the base of the prostate extensively we had removed extremely large prostate enucleation faction and then we advanced the mucosa starting at the 3:00 on the right side working her way to the 9:00 on the left side advancing the mucosa with a 3 oh V-Loc stitch after the mucosa was advanced to prevent a bladder neck contracture and also to allow for easy Blancas catheter placement later on then placed Floseal in the prostate bed we then took out the smaller catheter and put a 22 Pakistani catheter and then we closed the bladder in 2 layers the first layer was a 2 oh V-Loc stitch, after closing the bladder then we extracted the umbilicus Endobag and then we closed the extraction site all the camera and port sites were removed and robot was then docked the bladder was in continuous irrigation. I closed all the incisions with subcuticular stitches and dressings and bandages were placed minimal blood loss during the case all the needles and sponges were accounted for patient is currently being extubated from anesthesia. Surgeon: Adrian Tarango Type of Anesthesia: General Drains: [address] Estimated Blood Loss (mL): 0 Admit VTE Documentation VTE Present on Admission: No VTE Mechan Device Prophylaxis: SCD's VTE Pharm Prophylaxis ordered?: No
[2023-01-26 10:15] LABS: Bedside Glucose 218 mg/dL (74-106)
[2023-01-26] MEDS: HYDROcodone Bitartrate/Apap 5/325 Tablet PO ×2 (13:06→22:41)
[2023-01-26] MEDS: Ciprofloxacin 400 MG/200 ML BAG 200 MG IV ×2 (13:13→22:42)
[2023-01-26] MEDS: Ketorolac 15 MG/ML Vial IV ×2 (13:30→18:43)
[2023-01-26] MEDS: 0.9% Normal Saline 1,000 ML 125 ML IV (16:00)
[2023-01-26] MEDS: Albuterol 2.5 MG/3 ML VIAL.NEB. INHALATION (20:20)
[2023-01-26] MEDS: Budesonide Respules 0.5 MG/2 ML AMPUL.NEB. INHALATION (20:20)
[2023-01-26] MEDS: Atorvastatin Calcium 40 MG Tablet PO (22:42)
[2023-01-26] MEDS: Docusate Sodium 100 MG Capsule 200 MG PO (22:42)
[2023-01-27] MEDS: 0.9% Normal Saline 1,000 ML 125 ML IV (00:41)
[2023-01-27] MEDS: Ketorolac 15 MG/ML Vial IV ×2 (00:56→07:25)
[2023-01-27 04:16] VITALS: BP 137/73; PULSE 77; RESP 18; TEMP 36.7; O2SAT 95
--- NOTE | 2023-01-27 06:08 | PCM.PN.GU ---
Subjective Subjective Status post simple prostatectomy, urine is clear he is doing well we can plug the irrigation port on a three-way catheter and he can go home with a catheter to a large bag and leg bag today follow-up next week for catheter removal. Objective Data Objective Data Vital Signs: Vital Signs Temp Pulse Resp BP Pulse Ox O2 Del Method O2 Flow Rate 98.1 F 77 18 137/73 H 95 Room Air 3 01/27/23 04:16 01/27/23 04:16 01/27/23 04:16 01/27/23 04:16 01/27/23 04:16 01/27/23 04:16 01/26/23 10:15 Oxygen Flow Rate (L/min) 3 Oxygen Delivery Method Room Air Weight: 84 kg Body Mass Index (BMI) 29.9 Intake & Output: Intake and Output for Last 24 Hours 01/25/23 01/26/23 01/27/23 23:59 23:59 23:59 Intake Total 910 / 1910 1600 / 1600 Output Total 7100 / 7100 Balance -6190 / -5190 1600 / 1600 Lab / Micro Data Result Diagrams: 01/19/23 12:36 01/19/23 12:36 Labs: Laboratory Results - last 24 hr 01/26/23 06:33: POC Glucose 211 H 01/26/23 09:57: POC Glucose 218 H
[2023-01-27] MEDS: Albuterol 2.5 MG/3 ML VIAL.NEB. INHALATION (07:16)
[2023-01-27] MEDS: Budesonide Respules 0.5 MG/2 ML AMPUL.NEB. INHALATION (07:16)
[2023-01-27 07:25] VITALS: PULSE 98; RESP 21
[2023-01-27] MEDS: metFORMIN HCl 500 MG Tablet PO (08:38)
[2023-01-27 10:01] VITALS: BP 155/85; PULSE 94; RESP 16; TEMP 37; O2SAT 97
== END 2023-01-27 10:20 | disposition home or self-care (01) ==
LOC: SDC 14:59 → MS3 14:59
PROVIDERS: Anesthesiology; Admitting Provider Urology; PCP Family Medicine; Referring Provider Urology; Visit Provider Urology
PROC: 0VT04ZZ Resection of Prostate, Percutaneous Endoscopic Approach (ICD-10-PCS; CPT 55867; principal; 2023-01-26 07:10)
DX: N40.1 Benign prostatic hyperplasia with lower urinary tract symptoms (principal); E11.9 Type 2 diabetes mellitus without complications; Z79.84 Long term (current) use of oral hypoglycemic drugs; E78.00 Pure hypercholesterolemia, unspecified; I10 Essential (primary) hypertension; Z79.82 Long term (current) use of aspirin; I25.10 Atherosclerotic heart disease of native coronary artery without angina pectoris; N13.8 Other obstructive and reflux uropathy; I25.2 Old myocardial infarction; Z79.899 Other long term (current) drug therapy; K21.9 Gastro-esophageal reflux disease without esophagitis; R39.14 Feeling of incomplete bladder emptying
CPT/HCPCS: 52601; 00914; S2900; 36415; 80048; 82962; 83036; 85027; 88307; 88309; 93005; 94640; 96361; 96365; 96375; 96376; 99221; J7030; J7120; G0378; J0744; J2405

== ENCOUNTER 2023-01-28 22:26 | Observation (INO) | payer MEDICARE, SELFPAY ==
[2023-01-28 22:27] VITALS: BP 180/111; PULSE 85; RESP 16; TEMP 36.5; O2SAT 98; BMI 30.3
--- NOTE | 2023-01-28 23:14 | EDS_ITS ---
HPI History of Present Illness Chief Complaint: Blancas C/O Narrative Narrative: 67-year-old male with history of prostate surgery on the by Dr. Tarango at that point he had a Blancas catheter placed. He had irrigated while he was here in the hospital. He notes today that for the last few hours has been having clots in blood in his urine. He is not on any blood thinners. States he has a little bit of suprapubic pressure. No fevers or chills. No nausea or vomiting. PFSH PFS Medical History Arthritis Asthma Atherosclerosis of coronary artery of [place] heart without angina pectoris Bruising Cardiology follow-up encounter Diabetes Diabetes mellitus, type II Easy bruising Essential hypertension Gastric reflux Hernia High cholesterol History of echocardiogram History of heart attack History of irregular heartbeat History of non-ST elevation myocardial infarction (NSTEMI) (10/06/11) History of pain when walking History of stress test Hyperlipidemia Hypertension Hypertension Non-smoker Prostate disease Rectal abnormality Rectal abnormality Syncope TIA (transient ischemic attack) (04/13/18) Tinnitus of both ears Home Medications albuterol sulfate 90 mcg/actuation aerosol inhaler (ProAir HFA) 2 puff inhalation Q6H PRN bronchospasm #18 grams 02/07/18 [Rx Last Taken 01/25/23] aspirin 81 mg tablet,delayed release (Adult Aspirin Regimen) 81 mg PO DAILY 06/26/19 [History Last Taken 01/16/23] atorvastatin 40 mg tablet 40 mg PO QHS CHOLESTEROL #90 tabs 06/30/20 [Rx Last Taken 01/25/23] tamsulosin 0.4 mg capsule 0.8 mg PO QHS 06/30/20 [History Last Taken 01/25/23] budesonide-formoterol HFA 80 mcg-4.5 mcg/actuation aerosol inhaler (Symbicort) 1 puff inhalation QHS 10/26/21 [History Last Taken 01/25/23] omeprazole 40 mg capsule,delayed release 40 mg PO DAILY 10/26/21 [History Last Taken 01/25/23] finasteride 5 mg tablet 5 mg PO DAILY 05/26/22 [History Last Taken 01/25/23] ramipril 10 mg capsule 10 mg PO DAILY #90 caps 07/19/22 [Rx Last Taken 01/25/23] metformin 500 mg tablet 500 mg PO DAILY 09/27/22 [History Last Taken 01/25/23] metoprolol succinate 50 mg tablet,extended release 24 hr 50 mg PO DAILY 09/27/22 [History Last Taken 01/25/23] dulaglutide 0.75 mg/0.5 mL subcutaneous pen injector (Trulicity) 0.75 mg subcut QWEEK 01/13/23 [History Last Taken 01/25/23] ciprofloxacin HCl 500 mg tablet (Cipro) 500 mg PO BID #14 tabs 01/26/23 [Rx Last Taken Unknown] oxycodone-acetaminophen 5 mg-325 mg tablet (Endocet) 1 tab PO Q6H PRN pain 7 days #14 tabs 01/26/23 [Rx Last Taken Unknown] Allergy/AdvReac Type Severity Reaction Status Date / Time amoxicillin Allergy Unknown Verified 01/28/23 22:31 Penicillins AdvReac Intermediate Nausea, Verified 01/28/23 22:31 ears plugged Family History Mother CVA (cerebral vascular accident) Surgical History History of cardiac catheterization History of cataract surgery History of hernia repair History of tonsillectomy History of total right hip arthroplasty RETINA SURGERY Stented coronary artery (10/06/11) Social History Smoking Status: Never smoker how long ago did patient quit smoking: only as teen, 2 packs entire lifetime alcohol intake: never ROS ROS ED Constitutional Constitutional ED: Denies chills, fever(s) or sweats Eyes Eyes: Denies blurry vision or change in vision ENT ENT ED: Denies ear pain or sore throat Cardiovascular Cardiovascular: Denies chest pain, palpitations or racing heartbeat Respiratory/Chest Respiratory/Chest: Denies cough, dyspnea or sputum Gastrointestinal Gastrointestinal: Denies abdominal pain, constipation, diarrhea, nausea or vomiting Genitourinary Genitourinary ED: Reports hematuria and other Details: Clotting in urine, hematuria ; Denies dysuria or urinary frequency Musculoskeletal Musculoskeletal: Denies arthralgias, myalgias or neck pain Integumentary Denies abscess, Abrasions or rash Neurologic Neurologic: Denies headache(s), paresthesias or weakness Psychiatric Psychiatric: Denies anxiety, depression, suicidal ideation or suicidal thoughts Endocrine Endocrinology: Denies polydipsia or polyuria EXAM Physical Exam Const Vital Signs: 01/28/23 22:27 Temperature 97.7 F L Temperature Source Temporal Pulse Rate 85 Respiratory Rate 16 Blood Pressure 180/111 H Blood Pressure Mean 134 Pulse Ox 98 Positive well nourished General Appearance ED: NAD; Negative for pallor HEENT Reports moist mucous membranes Resp normal respiratory effort Cardio regular rate and regular rhythm Neuro oriented x3 and CN's II-XII intact bilaterally Sensorium / Orientation: alert Psych mental status grossly normal Skin General Skin Exam: Negative for jaundice or pallor MDM MDM MDM Narrative Medical decision making narrative: Patient Blancas catheter still has urine and it is red. There are no clots in the bag. I will have the Blancas irrigated. UA will be sent. UA consistent with UTI. Patient did have some improvement of his catheter drainage but is leaking out the sides when he forces it. I discussed the case with Dr. Tarango who wants the patient in the hospital and continuously bladder irrigated. Patient was amenable to this. Impression: 1. UTI 2. Bladder outlet obstruction Lab Data Labs: Laboratory Results - last 24 hr 01/28/23 23:21 Urine Color Elisa Urine Clarity Sl. Cloudy Urine pH 6.0 Ur Specific [place] 1.010 Urine Protein 500 H Urine Glucose (UA) Normal Urine Ketones Negative Urine Occult Blood 250 H Urine Nitrite Positive H Urine Bilirubin Negative Urine Urobilinogen Normal Ur Leukocyte Esterase 500 H Urine RBC > 100 SEEN Urine WBC 10-25 SEEN Ur Squamous Epith Cells 0-5 SEEN Urine Bacteria 2+ Urine Mucus 0 SEEN Discharge Plan Triage Chief Complaint: Blancas C/O ED Provider: Chauncey Yang Dx/Rx/DC Orders Prescriptions: No Action albuterol sulfate [ProAir HFA] 90 mcg/actuation HFA aerosol inhaler 2 puff INHALATION Q6H PRN (Reason: bronchospasm) Qty: 18 1RF Rx Instructions: administer with spacer aspirin [Adult Aspirin Regimen] 81 mg tablet,delayed release (DR/EC) 81 mg PO DAILY Symbicort 80-4.5 mcg/actuation HFA aerosol inhaler 1 puff INHALATION QHS metformin 500 mg tablet 500 mg PO DAILY tamsulosin 0.4 mg capsule 0.8 mg PO QHS atorvastatin 40 mg tablet 40 mg PO QHS Qty: 90 3RF omeprazole 40 mg capsule,delayed release(DR/EC) 40 mg PO DAILY metoprolol succinate 50 mg tablet extended release 24 hr 50 mg PO DAILY finasteride 5 mg tablet 5 mg PO DAILY Trulicity 0.75 mg/0.5 mL pen injector 0.75 mg SUBCUT QWEEK Label Comments: INJECT 0.75MG(1 PEN) SUBCUTANEOUSLY ONCE WEEKLY Rx Instructions: cody ciprofloxacin HCl [Cipro] 500 mg tablet 500 mg PO BID Qty: 14 0RF oxycodone-acetaminophen [Endocet] 5-325 mg tablet 1 tab PO Q6H PRN (Reason: pain) 7 Days Qty: 14 0RF ramipril 10 mg capsule 10 mg PO DAILY Qty: 90 3RF Primary Care Provider: El Cruz Referrals: El Cruz MD [Primary Care Provider] -
[2023-01-28 23:25] LABS: Mucous, Urine 0 SEEN /hpf (<or=2+)
[2023-01-28 23:29] LABS: Color, Urine Amber (Yellow); Glucose, Dipstick Normal (Normal); Ketone-Dipstick Negative (Negative); Leukocyte Esterase-Dipstick 500 /ul (Negative); Nitrite-Dipstick Positive (Negative); Occult Blood-Urine 250 /ul (Negative); Protein-Dipstick 500 mg/dl (Negative); Urine Bilirubin Dipstick Negative (Negative); Urine Clarity Sl. Cloudy (Clear); Urine Urobilinogen Normal (Normal)
[2023-01-28 23:55] LABS: Bacteria 2+ /hpf (None Seen); Red Blood Cells-Urine > 100 SEEN /hpf (0-5); Squamous Epithelial Cells - UA 0-5 SEEN /hpf (0-5); White Blood Cells 10-25 SEEN /hpf (0-5)
[2023-01-29] VITALS (11 sets, daily range): BP systolic 146–159; BP diastolic 79–95; PULSE 66–86; RESP 14–18; TEMP 36.4–37.2; O2SAT 18–99; BMI 29.6
[2023-01-29] MEDS: 0.9% Saline Lock 10 ML Syringe IV (03:43)
[2023-01-29] MEDS: Morphine 2 MG/ML Syringe IV (03:44)
[2023-01-29] MEDS: Ceftriaxone 1 GM/50 ML BAG IV ×3 (03:54→23:18)
[2023-01-29] MEDS: 0.9% Normal Saline 1,000 ML 75 ML IV ×2 (03:54→16:08)
--- NOTE | 2023-01-29 06:13 | HP.PCM_ITS ---
HPI - General General Date of Admission: 01/29/23 Chief Complaint: postoperative bleeding HPI Narrative ESTELLE ROWLAND, is a 67 M who presents to the emergency room with bleeding he had a simple prostatectomy a few days ago he bladder was irrigated out he was kept bec ause of the bleeding. Bleeding happened after a simple prostatectomy not significant amount of bleeding was causing spasms and pains the patient was admitted he is on continuous irrigation. The urine is now clear probably will watch him for another 24 hours and discharge. [facility] Medical History Arthritis Asthma Atherosclerosis of coronary artery of [place] heart without angina pectoris Bruising Cardiology follow-up encounter Diabetes Diabetes mellitus, type II Easy bruising Essential hypertension Gastric reflux Hernia High cholesterol History of echocardiogram History of heart attack History of irregular heartbeat History of non-ST elevation myocardial infarction (NSTEMI) (10/06/11) History of pain when walking History of stress test Hyperlipidemia Hypertension Hypertension Non-smoker Prostate disease Rectal abnormality Rectal abnormality Syncope TIA (transient ischemic attack) (04/13/18) Tinnitus of both ears Home Medications albuterol sulfate 90 mcg/actuation aerosol inhaler (ProAir HFA) 2 puff inhalation Q6H PRN bronchospasm #18 grams 02/07/18 [Rx Last Taken 01/27/23 22:00] aspirin 81 mg tablet,delayed release (Adult Aspirin Regimen) 81 mg PO DAILY 06/26/19 [History Last Taken 01/17/23] atorvastatin 40 mg tablet 40 mg PO QHS CHOLESTEROL #90 tabs 06/30/20 [Rx Last Taken 01/28/23] budesonide-formoterol HFA 80 mcg-4.5 mcg/actuation aerosol inhaler (Symbicort) 1 puff inhalation QHS 10/26/21 [History Last Taken 01/28/23 21:00] omeprazole 40 mg capsule,delayed release 40 mg PO DAILY 10/26/21 [History Last Taken 01/28/23 10:00] ramipril 10 mg capsule 10 mg PO DAILY #90 caps 07/19/22 [Rx Last Taken 01/28/23 21:30] metformin 500 mg tablet 500 mg PO BID 09/27/22 [History Last Taken 01/28/23 21:30] metoprolol succinate 50 mg tablet,extended release 24 hr 50 mg PO BID 09/27/22 [History Last Taken 01/28/23 21:30] ciprofloxacin HCl 500 mg tablet (Cipro) 500 mg PO BID #14 tabs 01/26/23 [Rx Last Taken 01/28/23 10:00] oxycodone-acetaminophen 5 mg-325 mg tablet (Endocet) 1 tab PO Q6H PRN pain 7 days #14 tabs 01/26/23 [Rx Last Taken 01/28/23 18:00] dulaglutide 1.5 mg/0.5 mL subcutaneous pen injector (Trulicity) 1.5 mg subcut TH 01/29/23 [History Last Taken 01/27/23] Allergy/AdvReac Type Severity Reaction Status Date / Time amoxicillin Allergy ears Verified 01/29/23 01:36 plugged Penicillins AdvReac Intermediate Nausea, Verified 01/28/23 22:31 ears plugged Family History Mother CVA (cerebral vascular accident) Surgical History History of cardiac catheterization History of cataract surgery History of hernia repair History of tonsillectomy History of total right hip arthroplasty RETINA SURGERY Stented coronary artery (10/06/11) Social History Smoking Status: Never smoker how long ago did patient quit smoking: only as teen, 2 packs entire lifetime alcohol intake: never Vital Signs Vital Signs Vital Signs: 01/28/23 22:27 01/29/23 00:44 01/29/23 01:26 Temperature 97.7 F L 98.1 F 99 F Temperature Source Temporal Temporal Oral Pulse Rate 85 79 82 Respiratory Rate 16 14 16 Blood Pressure 180/111 H 159/90 H 151/95 H Blood Pressure Mean 134 113 113 Blood Pressure Source Monitor Blood Pressure Position Semi-Fowlers Blood Pressure Location Left Arm Pulse Ox 98 99 95 Oxygen Delivery Method Room Air Room Air 01/29/23 01:28 01/29/23 02:04 Temperature 97.6 F L Temperature Source Temporal Pulse Rate 84 Respiratory Rate 16 Blood Pressure 151/95 H Blood Pressure Mean 113 Blood Pressure Source Blood Pressure Position Blood Pressure Location Pulse Ox 96 Oxygen Delivery Method Room Air Weight Weight: 83.3 kg Body Mass Index (BMI) 29.6 Results Lab / Micro Data Labs: Laboratory Results - last 24 hr 01/28/23 23:21: Urine Color Elisa, Urine Clarity Sl. Cloudy, Urine pH 6.0, Ur Specific [place] 1.010, Urine Protein 500 H, Urine Glucose (UA) Normal, Urine Ketones Negative, Urine Occult Blood 250 H, Urine Nitrite Positive H, Urine Bilirubin Negative, Urine Urobilinogen Normal, Ur Leukocyte Esterase 500 H, Urine RBC > 100 SEEN, Urine WBC 10-25 SEEN, Ur Squamous Epith Cells 0-5 SEEN, Urine Bacteria 2+, Urine Mucus 0 SEEN
[2023-01-29 06:57] LABS: Bedside Glucose 160 mg/dL (74-106)
[2023-01-29] MEDS: Albuterol 2.5 MG/3 ML VIAL.NEB. INHALATION ×3 (07:05→19:53)
[2023-01-29] MEDS: Budesonide Respules 0.5 MG/2 ML AMPUL.NEB. INHALATION ×2 (07:05→19:54)
[2023-01-29] MEDS: metFORMIN HCl 500 MG Tablet PO ×2 (07:33→16:09)
[2023-01-29] MEDS: Pantoprazole Sodium 40 MG Tablet PO (07:33)
[2023-01-29] MEDS: Ramipril 10 MG Capsule PO (07:34)
[2023-01-29] MEDS: Metoprolol(XL)Succ 50 MG Tablet PO ×2 (07:34→21:20)
[2023-01-29] MEDS: Oxycodone/Apap 5/325 Tablet PO ×3 (07:38→20:32)
[2023-01-29] MEDS: Ciprofloxacin 500 MG Tablet PO ×2 (11:32→21:19)
--- NOTE | 2023-01-29 13:58 | NURSING ---
ditropan not acknowledged
--- NOTE | 2023-01-29 14:06 | NURSING ---
order received from Dr Tarango for B&O supp. but none available per Rx
[2023-01-29] MEDS: Polyethylene Glycol 3350 17 GM PACKET PO (16:08)
[2023-01-29] MEDS: Oxybutynin 5 MG Tablet PO ×2 (16:08→21:19)
--- NOTE | 2023-01-29 18:25 | CASEMGMT ---
MARISA FABIAN NOTE: Intro role of CM to patient and CARRERO form explained re: Observation status for treatment of UTI and F/C obstruction.? Explained hospitalization will be paid per?his insurance policy for Outpatient billing?and condition will continue to be evaluated for Inpt necessity. Also let pt know that [facility] sends paper in the billing packet with their phone number if questions arise. Pt verbalizes understanding and does not have further questions. ?Form signed, copy made and placed in chart, and original given to pt. Pt states he lives @ home w/his , is independent, and denies any d/c planning needs or concerns. Lang NEILN MARISA CM
[2023-01-29] MEDS: Atorvastatin Calcium 40 MG Tablet PO (21:19)
[2023-01-30] MEDS: Oxycodone/Apap 5/325 Tablet PO ×2 (03:30→08:27)
[2023-01-30 03:33] VITALS: BP 156/95; PULSE 80; RESP 16; TEMP 36.6; O2SAT 98
[2023-01-30] MEDS: 0.9% Normal Saline 1,000 ML 75 ML IV (05:42)
[2023-01-30] MEDS: Budesonide Respules 0.5 MG/2 ML AMPUL.NEB. INHALATION (07:48)
[2023-01-30 07:49] VITALS: PULSE 71; RESP 16
[2023-01-30] MEDS: metFORMIN HCl 500 MG Tablet PO (08:15)
[2023-01-30 08:16] VITALS: PULSE 80
[2023-01-30] MEDS: Metoprolol(XL)Succ 50 MG Tablet PO (08:16)
[2023-01-30] MEDS: Pantoprazole Sodium 40 MG Tablet PO (08:16)
[2023-01-30] MEDS: Polyethylene Glycol 3350 17 GM PACKET PO (08:16)
[2023-01-30] MEDS: Oxybutynin 5 MG Tablet PO (08:17)
[2023-01-30] MEDS: Ramipril 10 MG Capsule PO (08:17)
[2023-01-30] MEDS: Ciprofloxacin 500 MG Tablet PO (08:17)
[2023-01-30 08:45] VITALS: BP 154/96; PULSE 71; RESP 18; TEMP 36.6; O2SAT 98
[2023-01-30] MEDS: Ceftriaxone 1 GM/50 ML BAG IV (09:24)
[2023-01-30 14:16] VITALS: BP 147/90; PULSE 80; RESP 18; TEMP 36.7; O2SAT 99
--- NOTE | 2023-01-30 14:24 | NURSING ---
pt aware to continue home meds as previously-next dose of percocet after 1445 if needed, follow up with dr qureshi in office as previosuly planned on drink plenty of flluids
--- NOTE | 2023-01-30 14:47 | NURSING ---
bladder scan is -0- post void dr qureshi aware of pt frequency and small amounts but no residual
== END 2023-01-30 14:44 | disposition home or self-care (01) ==
LOC: ED 01-29 00:51 → MS3 01-29 01:04
PROVIDERS: Admitting Provider Urology; Emergency Provider Student in an Organized Health Care Education/Training Program; PCP Family Medicine; Visit Provider Urology
DX: N99.820 Postprocedural hemorrhage of a genitourinary system organ or structure following a genitourinary system procedure (principal); E11.9 Type 2 diabetes mellitus without complications; R31.9 Hematuria, unspecified; Z79.84 Long term (current) use of oral hypoglycemic drugs; E78.00 Pure hypercholesterolemia, unspecified; I10 Essential (primary) hypertension; I25.10 Atherosclerotic heart disease of native coronary artery without angina pectoris; Z79.82 Long term (current) use of aspirin; Z79.899 Other long term (current) drug therapy; Y83.6 Removal of other organ (partial) (total) as the cause of abnormal reaction of the patient, or of later complication, without mention of misadventure at the time of the procedure
CPT/HCPCS: 81001; 82962; 87086; 94640; 96361; 96365; 96366; 96375; 99221; 99283; J7030; A4216; G0378

== ENCOUNTER 2023-02-12 19:50 | Observation (INO) | payer MEDICARE, SELFPAY ==
[2023-02-12] VITALS (8 sets, daily range): BP systolic 138–168; BP diastolic 79–95; PULSE 81–93; RESP 16–18; TEMP 36.4–37; O2SAT 95–99; BMI 29.8; BMI 29.1
--- NOTE | 2023-02-12 20:30 | EKG12_ITS ---
Test Reason : PALPITATIONS Blood Pressure : / mmHG Vent. Rate : 081 BPM Atrial Rate : 081 BPM P-R Int : 128 ms QRS Dur : 092 ms QT Int : 378 ms P-R-T Axes : 027 000 047 degrees QTc Int : 439 ms Sinus rhythm with occasional Premature ventricular complexes Otherwise normal ECG When compared with ECG of 19-JAN-2023 12:20, No significant change was found Confirmed by COLT ALFARO, ALMA ([id number]), city editor STACEY ONEAL ([id number]) on 02/16/2023 11:49:33 AM Referred By: Portia Hall Confirmed By:VIANCA GREGORY MD
--- NOTE | 2023-02-12 20:42 | EX.ED.DYSGE1 ---
HPI History of Present Illness Chief Complaint: Syncope Narrative Narrative: Patient presents after near syncopal episode today. Patient's been having dizzy and near syncopal episodes off and on for almost couple years. He has been seeing the heart group for this. He had a stress test about a year ago which was reportedly normal. He does have a history of heart disease had a stent 11 years ago. But he has not been having chest pain. They now have a heart monitor on him. Evidently they called a few days ago and stated that he had 90 second infarction. Patient's not exactly sure if he got that right. Today he had a near syncopal episode. He went down to his knees and got lightheaded but did not actually pass out. Was not having chest pain. He feels well now. Evidently somehow he, the company that does the heart monitoring and then iron plastic bullet maker referred him in here today. He thinks they saw something on his monitor today but is not certain. He was told that he can call in and have them fax the report directly to us if he can get a fax number. [facility] Medical History Arthritis Asthma Atherosclerosis of coronary artery of [place] heart without angina pectoris Bruising Cardiology follow-up encounter Diabetes Diabetes mellitus, type II Easy bruising Essential hypertension Gastric reflux Hernia High cholesterol History of echocardiogram History of heart attack History of irregular heartbeat History of non-ST elevation myocardial infarction (NSTEMI) (10/06/11) History of pain when walking History of stress test Hyperlipidemia Hypertension Hypertension Non-smoker Prostate disease Rectal abnormality Rectal abnormality Syncope TIA (transient ischemic attack) (04/13/18) Tinnitus of both ears Home Medications albuterol sulfate 90 mcg/actuation aerosol inhaler (ProAir HFA) 2 puff inhalation Q6H PRN bronchospasm #18 grams 02/07/18 [Rx Last Taken 01/27/23 22:00] aspirin 81 mg tablet,delayed release (Adult Aspirin Regimen) 81 mg PO DAILY 06/26/19 [History Last Taken 01/17/23] atorvastatin 40 mg tablet 40 mg PO QHS CHOLESTEROL #90 tabs 06/30/20 [Rx Last Taken 01/28/23] budesonide-formoterol HFA 80 mcg-4.5 mcg/actuation aerosol inhaler (Symbicort) 1 puff inhalation QHS 10/26/21 [History Last Taken 01/28/23 21:00] omeprazole 40 mg capsule,delayed release 40 mg PO DAILY 10/26/21 [History Last Taken 01/28/23 10:00] ramipril 10 mg capsule 10 mg PO DAILY #90 caps 07/19/22 [Rx Last Taken 01/28/23 21:30] metformin 500 mg tablet 500 mg PO BID 09/27/22 [History Last Taken 01/28/23 21:30] metoprolol succinate 50 mg tablet,extended release 24 hr 50 mg PO BID 09/27/22 [History Last Taken 01/28/23 21:30] ciprofloxacin HCl 500 mg tablet (Cipro) 500 mg PO BID #14 tabs 01/26/23 [Rx Last Taken 01/28/23 10:00] oxycodone-acetaminophen 5 mg-325 mg tablet (Endocet) 1 tab PO Q6H PRN pain 7 days #14 tabs 01/26/23 [Rx Last Taken 01/28/23 18:00] dulaglutide 1.5 mg/0.5 mL subcutaneous pen injector (Trulicity) 1.5 mg subcut TH 01/29/23 [History Last Taken 01/27/23] Allergy/AdvReac Type Severity Reaction Status Date / Time amoxicillin Allergy ears Verified 02/12/23 19:51 plugged Penicillins AdvReac Intermediate Nausea, Verified 02/12/23 19:51 ears plugged Family History Mother CVA (cerebral vascular accident) Surgical History History of cardiac catheterization History of cataract surgery History of hernia repair History of tonsillectomy History of total right hip arthroplasty RETINA SURGERY Stented coronary artery (10/06/11) Social History Smoking Status: Never smoker how long ago did patient quit smoking: only as teen, 2 packs entire lifetime alcohol intake: never ROS ROS ED ROS Narrative A complete review of systems was performed and is negative except as documented in the history of present illness. Some specific details below. Constitutional: No recent fevers or chills. No malaise. In between these episodes he feels pretty good. EYE: No discharge, visual complaints, or pain. ENT: No difficulty swallowing. No swelling. No pain. No reflux symptoms. CV: See history of present illness. He gets near syncope but he is not feeling definitive palpitations Respiratory: No cough or shortness of breath. GI: No abdominal pain. No nausea vomiting diarrhea. No blood in stool. : No frequency dysuria or hematuria. Musculoskeletal: No recent trauma. No pains. No swelling. Skin: No rash. Nondiaphoretic. Neuro: No weakness or numbness. Endocrine: No polyuria or polydipsia. EXAM Physical Exam Narrative Exam Narrative: CONSTITUTIONAL: Patient is nontoxic in appearance. The patient looks comfortable. Work of breathing looks normal. HEENT: No notable trauma. Mucous membranes moist. No sinus tenderness. No indication of pain with swallowing. EYES: No conjunctival injection. No proptosis. NECK:No JVD. No stridor. CARDIOVASCULAR: Regular rate. Regular rhythm. No notable murmur. No JVD. On the monitor he has a heart rate of about 80. He has an occasional PVC but I do not see any couplets on the monitor. RESPIRATORY: No respiratory distress. Breathing is unlabored. No wheezes. No rhonchi. No rales. No pain with a deep breath. No chest wall tenderness. He does have his heart monitor in the upper sternal area. GASTROINTESTINAL: Not distended. Bowel sounds are normal. No tenderness. No guarding. No rebound. No palpable mass. No bruit is heard. GENITOURINARY: No tenderness over the bladder. No CVA tenderness. MUSCULOSKELETAL: Atraumatic. No peripheral edema. No cord. No tenderness along the deep venous system. No asymmetry. No distended veins. NEUROLOGICAL: Patient is alert and appropriate. No focal deficit noted. SKIN: No noted rashes. No diaphoresis. PSYCHIATRIC: Patient is calm. Mood is appropriate. Const Vital Signs: 02/12/23 19:52 02/12/23 19:50 02/12/23 20:50 Temperature 97.5 F L Temperature Source Temporal Pulse Rate 84 91 Respiratory Rate 18 16 Respiratory Effort Normal Non-Labored Respiratory Pattern Normal Blood Pressure 165/89 H 142/81 H Blood Pressure Mean 114 101 Pulse Ox 95 99 Oxygen Delivery Method Room Air 02/12/23 21:00 Temperature Temperature Source Pulse Rate 87 Respiratory Rate 18 Respiratory Effort Respiratory Pattern Blood Pressure 138/86 H Blood Pressure Mean 103 Pulse Ox 97 Oxygen Delivery Method MDM MDM MDM Narrative Medical decision making narrative: Patient CBC shows no marked abnormalities. Patient's electrolytes show no significant abnormalities. Glucose is reasonably well controlled at 121. Patient's troponin is negative. Chest x-ray was not done as we have to take off his monitor and he is having no symptoms at this time. We were able to access his monitor from before. Earlier today at about the time he had his symptoms he had a 9-second run of ventricular tachycardia. I then discussed the case directly with his iron plastic bullet maker, Dr. Mansfield who recommended admission. He will see him in the morning. No acute changes in therapy at this time. I have hospitalist on page Lab Data Attestation: I reviewed the patient's lab results. Labs: Laboratory Results - last 24 hr 02/12/23 20:10 WBC 10.5 RBC 4.73 Hgb 14.1 Hct 43.4 MCV 91.8 MCH 29.8 MCHC 32.5 RDW Std Deviation 44.8 H RDW Coeff of José Antonio 13.2 Plt Count 354 MPV 10.4 Immature Gran % (Auto) 0.800 Neut % (Auto) 63.9 Lymph % (Auto) 19.9 [place] % (Auto) 7.1 Eos % (Auto) 7.3 H Baso % (Auto) 1.0 Absolute Neuts (auto) 6.7 Absolute Lymphs (auto) 2.09 Nucleated RBC % 0 Sodium 136 Potassium 3.8 Chloride 104 Carbon Dioxide 26.0 Anion Gap 6 BUN 15 Creatinine 0.89 Estim Creat Clear Calc 72.68 Est GFR (MDRD) Af Amer 109 Est GFR (MDRD) Non-Af 90 BUN/Creatinine Ratio 16.8 Glucose 121 H Calcium 9.5 Troponin I High Sens 4 EKG Initial EKG: Comments: My independent interpretation the patient's EKG done for near syncope shows a sinus rhythm with overall rate of 81. There is a PVC noted similar to what was seen on the monitor. No acute ST elevation or depression. IA interval, QRS duration and QTc are normal. Management Discussion w/another healthcare provider: Hospitalist and Principal Android Developer Discharge Plan Triage Chief Complaint: Syncope ED Provider: Daryn Mak Dx/Rx/DC Orders Clinical Impression: Hyperglycemia, Near syncope, Ventricular tachycardia Prescriptions: No Action albuterol sulfate [ProAir HFA] 90 mcg/actuation HFA aerosol inhaler 2 puff INHALATION Q6H PRN (Reason: bronchospasm) Qty: 18 1RF Rx Instructions: administer with spacer aspirin [Adult Aspirin Regimen] 81 mg tablet,delayed release (DR/EC) 81 mg PO DAILY Symbicort 80-4.5 mcg/actuation HFA aerosol inhaler 1 puff INHALATION QHS metformin 500 mg tablet 500 mg PO BID atorvastatin 40 mg tablet 40 mg PO QHS Qty: 90 3RF omeprazole 40 mg capsule,delayed release(DR/EC) 40 mg PO DAILY metoprolol succinate 50 mg tablet extended release 24 hr 50 mg PO BID ciprofloxacin HCl [Cipro] 500 mg tablet 500 mg PO BID Qty: 14 0RF oxycodone-acetaminophen [Endocet] 5-325 mg tablet 1 tab PO Q6H PRN (Reason: pain) 7 Days Qty: 14 0RF Trulicity 1.5 mg/0.5 mL pen injector 1.5 mg SUBCUT TH Patient Comments: INJECT CONTENTS OF 1 PEN SUBCUTANEOUSLY ONCE WEEKLY ramipril 10 mg capsule 10 mg PO DAILY Qty: 90 3RF Primary Care Provider: El Cruz Referrals: El Cruz MD [Primary Care Provider] - Disposition Disposition: Acute Care Hospital [facility]
[2023-02-12 20:43] LABS: Absolute Lymphocyte Count 2.09 X10^3/uL (0.83-4.51); Absolute Neutrophil Count 6.7 X10^3/uL (2.0-7.7); Eosinophil# 0.77 X10^3/uL; Eosinophils% 7.3 % (0-5); Hematocrit 43.4 % (40-54); Hemoglobin 14.1 g/dL (13.0-16.5); Lymphocyte # 2.09 X10^3/ul (0.83-4.51); Lymphocyte % 19.9 % (19-41); Mean Corp Hgb Conc 32.5 g/dL (32-36); Mean Corpuscular Hgb 29.8 pg (27.0-32.0); Mean Corpuscular Volume 91.8 fL (80-94); Mean Platelet Vol. 10.4 fl (6.2-12.0); Monocyte# 0.75 X10^3/uL; Monocyte% 7.1 % (0-10); NRBC Flagged by Analyzer 0 % (0-5); Neutrophil # 6.71 X10^3/uL (2.7-7.7); Neutrophil % 63.9 % (47-70); Platelet Count 354 K/mm3 (150-450); RBC Distribution Width CV 13.2 % (11.6-14.6); RBC Distribution Width SD 44.8 fl (35.1-43.9); Red Blood Count 4.73 M/mm3 (4.6-6.2); White Blood Count 10.5 K/mm3 (4.4-11.0)
[2023-02-12 21:02] LABS: Anion Gap 6 (5-15); BUN 15 mg/dL (7-18); BUN/Creat Ratio 16.8 RATIO (10-20); Calcium,Total 9.5 mg/dL (8.5-10.1); Chloride 104 mmol/L (98-107); Creatinine, Serum 0.89 mg/dL (0.70-1.30); EST Glomerular Filtration Rate 90 mL/min (>60); Est Glom Filt Rate - Afr Amer 109 mL/min (>60); Estimated Creatinine Clearance 72.68 ml/min; Glucose 121 mg/dL (74-106); Potassium 3.8 mmol/L (3.5-5.1); Sodium Level 136 mmol/L (136-145); Troponin-I HS 4 pg/mL (3.0-78.0)
[2023-02-12 22:39] LABS: Magnesium 2.5 mg/dL (1.6-2.6)
--- NOTE | 2023-02-12 23:06 | ECHOD_ITS ---
Reason For Study: SYNCOPE Procedure This was a 2D Doppler, Color Flow transthoracic echocardiogram. Exam performed portable in patient room. Left Ventricle Normal LV size. Left ventricular systolic function is normal. The estimated ejection fraction is 55 %. Stage 1 diastolic dysfunction. No regional wall motion abnormalities noted. Right Ventricle Normal RV size. Normal systolic function. Atria Normal left atrium. Normal right atrium. Mitral Valve Normal mitral valve. Tricuspid Valve Normal tricuspid valve. Aortic Valve Trisinus/trileaflet aortic valve. Pulmonic Valve Normal pulmonic valve. Great Vessels Normal aortic root. The pulmonary artery is normal size. Normal inferior vena cava. Pericardium/Pleural No pericardial effusion. MMode/2D Measurements & Calculations RVDd: 3.1 cm LAV(MOD-bp): 51.9 ml LVAd ap4: 30.2 cm2 LAV(MOD-bp) Indexed: 27.1 ml/m2 LVLd ap4: 7.6 cm LAV(MOD-sp2): 42.3 ml EDV(MOD-sp4): 98.4 ml LAV(MOD-sp4): 52.4 ml EDV(sp4-el): 102.2 ml LVAs ap4: 18.2 cm2 LVLs ap4: 6.3 cm ESV(MOD-sp4): 43.2 ml ESV(sp4-el): 44.4 ml EF(MOD-sp4): 56.0 % EF(sp4-el): 56.6 % SV(MOD-sp4): 55.1 ml SV(sp4-el): 57.8 ml LA A4 area: 19.8 cm2 LA dimension(2D): 3.1 cm RA A4 area: 19.0 cm2 TAPSE: 1.9 cm Time Measurements MV dec time: 0.15 sec Doppler Measurements & Calculations MV E max khari: 61.8 cm/sec Lat Peak E' Khari: 11.8 cm/sec Med Peak E' Khari: 6.8 cm/sec MV A max khari: 84.1 cm/sec E/E' lat: 5.2 E/E' med: 9.1 MV E/A: 0.73 MV V2 max: 77.6 cm/sec MV dec slope: 448.4 cm/sec2 Ao V2 max: 121.3 cm/sec MV max P.4 mmHg Ao max P.9 mmHg MV V2 mean: 52.2 cm/sec Ao V2 mean: 88.9 cm/sec MV mean P.2 mmHg Ao mean P.5 mmHg MV V2 VTI: 23.6 cm Ao V2 VTI: 27.2 cm PA V2 max: 85.0 cm/sec PA V2 mean: 59.5 cm/sec ECHO/Echo Complete Interpretation Summary Normal LV size. Left ventricular systolic function is normal. The estimated ejection fraction is 55 %. Stage 1 diastolic dysfunction. Ordering Physician: Portia Hall Referring Physician: Portia Hall Performed By: Zhanna Hernandez RCS
--- NOTE | 2023-02-12 23:15 | PCM.HP.STD ---
HPI - General General Date of Admission: 02/12/23 Date of Service: 02/12/23 Chief Complaint: Recurrent near syncopal event. HPI Narrative The patient is a 67 y/o M w/ PMHx: Asthma, CAD s/p PCI, HTN, HLD, Diabetes mellitus type II, GERD, Obesity, Hx TIA, BPH s/p recent 01/26/23 robotic simple prostatectomy by Dr. Tarango with recent post-operative bleeding admitted per Dr. 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 Patient notes that when he felt dizzy and was near syncopal he went down to his knees and was lightheaded but did not actually pass out. He currently feels improved and is back to his baseline. Patient notes that he did have prior HM assessments but reports he accidentally dropped it in the toilet at one point and he is not sure if it was working appropriate following but there was no reported arrhythmia history following this evaluation. Patient states that he did have some mild dyspepsia the evening prior. When he had his stents placed remotely he states prior to that presentation he did have 3 days of reflux type symptoms. Work-up in the ED included T97.5, heart rate 84, BP initially 165/89 with most recent BP 142/81, respiratory rate 18, 95 to 99% on room air, CBC with WC 10.5, hemoglobin 14.1, platelet 354 without marked shift, BMP with glucose 121 otherwise unremarkable, troponin 4, EKG with sinus rhythm with PVC with no acute evidence of ischemia similar to prior EKGs. ED physician was able to obtain patient device data which reported a 9-second run of ventricular tachycardia. ED discussed case with Dr. Mansfield who noted intention to evaluate 9in AM. [facility] Medical History Arthritis Asthma Atherosclerosis of coronary artery of [place] heart without angina pectoris Bruising Cardiology follow-up encounter Diabetes Diabetes mellitus, type II Easy bruising Essential hypertension Gastric reflux Hernia High cholesterol History of echocardiogram History of heart attack History of irregular heartbeat History of non-ST elevation myocardial infarction (NSTEMI) (10/06/11) History of pain when walking History of stress test Hyperlipidemia Hypertension Hypertension Non-smoker Prostate disease Rectal abnormality Rectal abnormality Syncope TIA (transient ischemic attack) (04/13/18) Tinnitus of both ears Home Medications albuterol sulfate 90 mcg/actuation aerosol inhaler (ProAir HFA) 2 puff inhalation Q6H PRN bronchospasm #18 grams 02/07/18 [Rx Last Taken 01/27/23 22:00] aspirin 81 mg tablet,delayed release (Adult Aspirin Regimen) 81 mg PO DAILY 06/26/19 [History Last Taken 01/17/23] atorvastatin 40 mg tablet 40 mg PO QHS CHOLESTEROL #90 tabs 06/30/20 [Rx Last Taken 01/28/23] budesonide-formoterol HFA 80 mcg-4.5 mcg/actuation aerosol inhaler (Symbicort) 1 puff inhalation QHS 10/26/21 [History Last Taken 01/28/23 21:00] omeprazole 40 mg capsule,delayed release 40 mg PO DAILY 10/26/21 [History Last Taken 01/28/23 10:00] ramipril 10 mg capsule 10 mg PO DAILY #90 caps 07/19/22 [Rx Last Taken 01/28/23 21:30] metformin 500 mg tablet 500 mg PO DAILY 09/27/22 [History Last Taken 01/28/23 21:30] metoprolol succinate 50 mg tablet,extended release 24 hr 50 mg PO DAILY 09/27/22 [History Last Taken 01/28/23 21:30] ciprofloxacin HCl 500 mg tablet (Cipro) 500 mg PO BID #14 tabs 01/26/23 [Rx Last Taken 01/28/23 10:00] oxycodone-acetaminophen 5 mg-325 mg tablet (Endocet) 1 tab PO Q6H PRN pain 7 days #14 tabs 01/26/23 [Rx Last Taken 01/28/23 18:00] dulaglutide 1.5 mg/0.5 mL subcutaneous pen injector (Trulicity) 1.5 mg subcut TH 01/29/23 [History Last Taken 01/27/23] tamsulosin 0.4 mg capsule 0.8 mg PO QHS 02/12/23 [History Last Taken Unknown] Allergy/AdvReac Type Severity Reaction Status Date / Time amoxicillin Allergy ears Verified 02/12/23 19:51 plugged Penicillins AdvReac Intermediate Nausea, Verified 02/12/23 19:51 ears plugged Family History (Updated 02/12/23 @ 23:[address] Portia Hall MD) Mother CVA (cerebral vascular accident) Father COPD (chronic obstructive pulmonary disease) Surgical History History of cardiac catheterization History of cataract surgery History of hernia repair History of tonsillectomy History of total right hip arthroplasty RETINA SURGERY Stented coronary artery (10/06/11) Social History household members: spouse Smoking Status: Never smoker how long ago did patient quit smoking: only as teen, 2 packs entire lifetime alcohol intake: never substance use type: does not use ROS ROS Narrative Admission Review of Systems: CONSTITUTIONAL: No weight loss, fever, chills, + weakness or fatigue. HEENT: Eyes: No visual loss, blurred vision, double vision or yellow sclerae. Ears, Nose, Throat: No hearing loss, sneezing, congestion, runny nose or sore throat. SKIN: No rash or itching, lesions, wounds. CARDIOVASCULAR: + Near Syncope, LH, dizziness. No chest pain, chest pressure or chest discomfort, palpitations, edema, orthopnea. RESPIRATORY: No shortness of breath, cough or sputum, wheezing, hemoptysis. GASTROINTESTINAL: No anorexia, nausea, vomiting or diarrhea, abdominal pain, melena, BRBPR. No recurrent hematuria of note. GENITOURINARY: + Frequency, especially since recent OR. No dysuria, urgency or retention. NEUROLOGICAL: No headache, dizziness, syncope, paralysis, ataxia, numbness or tingling in the extremities, focal weakness, change in bowel or bladder control, seizure. MUSCULOSKELETAL: No muscle, back pain, joint pain or stiffness. HEMATOLOGIC: No anemia, bleeding or bruising. LYMPHATICS: No enlarged nodes. No history of splenectomy. PSYCHIATRIC: No history of depression or anxiety. ENDOCRINOLOGIC: No reports of sweating, cold or heat intolerance. No polyuria or polydipsia. ALLERGIES: + history of asthma. Vital Signs Vital Signs Vital Signs: 02/12/23 19:52 02/12/23 19:50 02/12/23 20:50 Temperature 97.5 F L Temperature Source Temporal Pulse Rate 84 91 Respiratory Rate 18 16 Respiratory Effort Normal Non-Labored Respiratory Pattern Normal Blood Pressure 165/89 H 142/81 H Blood Pressure Mean 114 101 Pulse Ox 95 99 Oxygen Delivery Method Room Air 02/12/23 21:00 Temperature Temperature Source Pulse Rate 87 Respiratory Rate 18 Respiratory Effort Respiratory Pattern Blood Pressure 138/86 H Blood Pressure Mean 103 Pulse Ox 97 Oxygen Delivery Method Weight Weight: 185 lb Body Mass Index (BMI) 29.8 Physical Exam Narrative Physical Examination: General: Awake, alert, oriented x 3 and cooperative, seated upright in the ED bed in no apparent distress, feels improved and at his baseline. Skin: Normal color, normal turgor, no icterus, no cyanosis. HEENT: AT/NC, EOMI, PERRLA, MMM, no carotid bruits or JVD noted. Lungs: CTA bilaterally, moderate effort, no rales, ronchi or wheezing. Heart: Regular rate and rhythm; no gallop, rub audible. Abdomen: Soft, obese, NTTP, ND, normal BS, no HSM. Extremities: No cyanosis, clubbing, or edema. Neurological: Patient awake, alert, oriented as noted, cognitive function intact; pupils equally reactive to light and accommodation, cranial nerves II-XII grossly normal, moving all 4 extremities, no focal deficits, strength preserved. Psychiatric: Affect appears fatigued otherwise normal, no acute evidence of depressive or anxiety feelings. Results Lab / Micro Data 02/12/23 20:10 02/12/23 20:10 Labs: Laboratory Results - last 24 hr 02/12/23 20:10: WBC 10.5, RBC 4.73, Hgb 14.1, Hct 43.4, MCV 91.8, MCH 29.8, MCHC 32.5, RDW Std Deviation 44.8 H, RDW Coeff of José [place] 13.2, Plt Count 354, MPV 10.4, Immature Gran % (Auto) 0.800, Neut % (Auto) 63.9, Lymph % (Auto) 19.9, [place] % (Auto) 7.1, Eos % (Auto) 7.3 H, Baso % (Auto) 1.0, Absolute Neuts (auto) 6.7, Absolute Lymphs (auto) 2.09, Nucleated RBC % 0, Sodium 136, Potassium 3.8, Chloride 104, Carbon Dioxide 26.0, Anion Gap 6, BUN 15, Creatinine 0.89, Estim Creat Clear Calc 72.68, Est GFR (MDRD) Af Amer 109, Est GFR (MDRD) Non-Af 90, BUN/Creatinine Ratio 16.8, Glucose 121 H, Calcium 9.5, Troponin I High Sens 4 Assessment & Plan Assessment/Plan (1) Ventricular tachycardia: PLAN: Plan The patient is a 67 y/o M w/ PMHx: Asthma, CAD s/p PCI, HTN, HLD, Diabetes mellitus type II, GERD, Obesity, Hx TIA, BPH s/p recent 01/26/23 robotic simple prostatectomy by Dr. Tarango with recent post-operative bleeding admitted per Dr. 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 #1. Near syncopal event, recurrent with Ventricular tachycardia on HM: Possibly VT associated, EKG in ED w/ sinus rhythm with occasional PVC without evidence of acute ischemia, initial trop normal. Will admit to PCU, place on a monitored bed to assure no acute myocardial infarction with serial cardiac enzymes and EKGs. Will maintain on fall precautions, obtain admission orthostatic and AM orthostatic VS and increase hydration if appropriate. 09/21/2021 stress testing unremarkable, 08/13/2019 echocardiogram with EF 55%, stage I diastolic dysfunction, trivial MVI, trivial DIONISIO, inability to estimate RV systolic pressure secondary to insufficient tricuspid regurgitant envelope. Will continue home metoprolol regimen. Will request repeat echocardiogram given timeline. TSH and Mag pending. Cardiology consulted and will evaluate in AM. #2. CAD w/ Hx NSTEMI: 10/06/11 NSTEMI, cardiac catheterization with mild disease of his LAD and circumflex, 30% proximal RCA, 95% proximal ramus s/p BMS proximal ramus (3.0X 15 integrity bare-metal stent) with EF 35%, 03/28/2013 ECHO w/ EF 40% with anterolateral wall hypokinesis, will continue patient home aspirin, statin, metoprolol, AMELIA inhibitor. #3. BPH: Status post recent 01/26/2023 robotic simple prostatectomy with postoperative bleeding admitted 01/28/2023 and discharged on 01/29/2023 following. Transient continuous bladder irrigation with urine culture negative at that time, encourage continued outpatient follow-up as previously arranged with Dr. Tarango. #4. Chronic Asthma: We will temporarily hold home inhalers in the interim transition to ATC budesonide therapy, PRN albuterol, HOB, IS parameters. #5. Diabetes mellitus type II: Hold oral home regimen, ADA diet, accu checks w/ ISS. #6. Hypertension: Continue home regimen including metoprolol, AMELIA inhibitor with hold parameters as needed, PRN hydralazine. #7. Hyperlipidemia: We will continue patient home statin therapy. #8. Chart reported history of former tobacco use: Chart does report prior tobacco use however this was when he was a young teenager and he only smoked 2 packs. #9. GERD: We will keep patient on PPI. #10. Obesity: Weight loss and lifestyle changes encouraged. #11. History of TIA: We will continue aspirin, statin, hypertensive regimen as noted, diabetic regimen with alterations as noted. #12. DVT prophylaxis: Lovenox. #13. CODE status: Patient does not have HCPOA or LW in place but his who is present would be his decision maker. Full Code. Admission Evaluation Time spent evaluating chart, patient history, patient evaluation, care planning and discussion with specialists: 55 minutes. Charges/Coding Visit Charges Inpatient E&M: 09447 Init Hosp L2
[2023-02-12] MEDS: Metoprolol(XL)Succ 50 MG Tablet PO (23:36)
[2023-02-12] MEDS: 0.9% Normal Saline 1,000 ML 100 ML IV (23:37)
[2023-02-13] VITALS (7 sets, daily range): BP systolic 139–155; BP diastolic 79–89; PULSE 76–93; RESP 16–20; TEMP 35.7–37.1; O2SAT 96–98; BMI 29.2
[2023-02-13 00:08] LABS: Troponin-I HS 5 pg/mL (3.0-78.0)
[2023-02-13 02:23] LABS: Troponin-I HS 5 pg/mL (3.0-78.0)
[2023-02-13] MEDS: Budesonide Respules 0.5 MG/2 ML AMPUL.NEB. INHALATION ×2 (06:41→19:45)
[2023-02-13] MEDS: Insulin Lispro 100 UNIT/ML INSULN.PEN SC ×2 (06:50→22:07)
[2023-02-13 07:01] LABS: Absolute Lymphocyte Count 1.46 X10^3/uL (0.83-4.51); Absolute Neutrophil Count 5.7 X10^3/uL (2.0-7.7); Basophil# 0.08 X10^3/uL; Basophil% 0.9 % (0-1); Eosinophil# 0.68 X10^3/uL; Eosinophils% 7.9 % (0-5); Hematocrit 41.1 % (40-54); Hemoglobin 13.4 g/dL (13.0-16.5); Lymphocyte # 1.46 X10^3/ul (0.83-4.51); Lymphocyte % 16.9 % (19-41); Mean Corp Hgb Conc 32.6 g/dL (32-36); Mean Corpuscular Hgb 30.1 pg (27.0-32.0); Mean Corpuscular Volume 92.4 fL (80-94); Mean Platelet Vol. 10.3 fl (6.2-12.0); Monocyte# 0.62 X10^3/uL; Monocyte% 7.2 % (0-10); NRBC Flagged by Analyzer 0 % (0-5); Neutrophil # 5.74 X10^3/uL (2.7-7.7); Neutrophil % 66.3 % (47-70); Platelet Count 329 K/mm3 (150-450); RBC Distribution Width CV 13.3 % (11.6-14.6); RBC Distribution Width SD 44.9 fl (35.1-43.9); Red Blood Count 4.45 M/mm3 (4.6-6.2); White Blood Count 8.7 K/mm3 (4.4-11.0)
[2023-02-13 07:15] LABS: Bedside Glucose 151 mg/dL (74-106)
[2023-02-13 07:31] LABS: ALB/GLOB Ratio 0.8 RATIO (0.9-2.4); AST(SGOT) 16 U/L (15-37); Alanine Aminotransfer ALT/SGPT 25 U/L (16-61); Albumin, Serum 3.1 g/dL (3.2-5.0); Alkaline Phosphatase 95 U/L (45-117); Anion Gap 6 (5-15); BUN 13 mg/dL (7-18); BUN/Creat Ratio 17.2 RATIO (10-20); Calcium,Total 9.1 mg/dL (8.5-10.1); Chloride 106 mmol/L (98-107); Creatinine, Serum 0.76 mg/dL (0.70-1.30); EST Glomerular Filtration Rate 109 mL/min (>60); Est Glom Filt Rate - Afr Amer 132 mL/min (>60); Estimated Creatinine Clearance 64.69 ml/min; Globulin 3.7 g/dL (2.2-4.2); Glucose 151 mg/dL (74-106); Potassium 3.6 mmol/L (3.5-5.1); Protein, Total 6.8 g/dL (6.4-8.2); Sodium Level 137 mmol/L (136-145); Thyroid Stim Hormone (TSH) 0.76 uIU/mL (0.358-3.74)
--- NOTE | 2023-02-13 09:10 | CON.PCM.CA_ITS ---
Assessment & Plan Assessment/Plan (1) Ventricular tachycardia: PLAN: He does present with dizziness and is noted to have nonsustained marley tricular tachycardia. His last estimated ejection fraction was noted to be normal. I would however recommend that on the basis of the above we proceed with a left heart catheterization. The risk benefits alternatives have been explained to him he understands and agrees to proceed. (2) Atherosclerosis of coronary artery of [place] heart without angina pectoris: QUALIFIERS: Coronary Disease-Associated Artery/Lesion type: [place] artery Qualified Code(s): I25.10 - Atherosclerotic heart disease of [place] coronary artery without angina pectoris PLAN: He does have a history of coronary disease status post PCI of the ramus intermedius. This will be reevaluated at the left heart catheterization. (3) Essential hypertension: PLAN: He does have a history of hypertension his blood pressure appears to be under fair control at this time, and I would suggest the continuation of his AMELIA inhibitor. If it is still persistently elevated we may add a calcium channel kalie (4) Hyperlipidemia: QUALIFIERS: Hyperlipidemia type: unspecified Qualified Code(s): E78.5 - Hyperlipidemia, unspecified PLAN: We will continue with risk factor modification. Thank you for allowing me to participate in the care of your patient. Please don't hesitate to call if any issues arise. HPI Consult Data Date of Consult: 02/13/23 HPI Narrative HPI Narrative: ESTELLE ROWLAND, is a 67 M who presents with palpitations and near syncopal episodes. He says this has been going on for a while. He was being evaluated for pr ostate surgery and his EKG was noted to be abnormal and he had an event monitor placed after placing a phone call to our office. We were called by the event monitor company that they had seen some wide-complex tachycardia rhythms. He was therefore sent to the emergency room and evaluated. He denies any chest pain or paroxysmal nocturnal dyspnea or pedal edema. He has a history of CAD, status post a STEMI ([id number]), status post PCI ([facility] in [place], [place]), hyperlipidemia, hypertension, diabetes, he had mild disease of his LAD and circumflex, 30% proximal RCA, 95% proximal ramus and underwent bare-metal stenting of his proximal ramus receiving a 3.0X 15 integrity bare-metal stent. His EF was found to be 35% at that time. This had subsequently improved to 65% in July 2019. He also underwent a stress test in September 2021 which did not demonstrate any evidence of ischemia. He has had some palpitations in the past. An ambulatory monitoring in August 2021 did not demonstrate any significant abnormalities. [facility] Medical History Arthritis Asthma Atherosclerosis of coronary artery of [place] heart without angina pectoris Bruising Cardiology follow-up encounter Diabetes Diabetes mellitus, type II Easy bruising Essential hypertension Gastric reflux Hernia High cholesterol History of echocardiogram History of heart attack History of irregular heartbeat History of non-ST elevation myocardial infarction (NSTEMI) (10/06/11) History of pain when walking History of stress test Hyperlipidemia Hypertension Hypertension Non-smoker Prostate disease Rectal abnormality Rectal abnormality Syncope TIA (transient ischemic attack) (04/13/18) Tinnitus of both ears Home Medications albuterol sulfate 90 mcg/actuation aerosol inhaler (ProAir HFA) 2 puff inhalation Q6H PRN bronchospasm #18 grams 02/07/18 [Rx Last Taken 01/27/23 22:00] aspirin 81 mg tablet,delayed release (Adult Aspirin Regimen) 81 mg PO DAILY 06/26/19 [History Last Taken 01/17/23] atorvastatin 40 mg tablet 40 mg PO QHS CHOLESTEROL #90 tabs 06/30/20 [Rx Last Taken 01/28/23] budesonide-formoterol HFA 80 mcg-4.5 mcg/actuation aerosol inhaler (Symbicort) 1 puff inhalation QHS 10/26/21 [History Last Taken 01/28/23 21:00] omeprazole 40 mg capsule,delayed release 40 mg PO DAILY 10/26/21 [History Last Taken 01/28/23 10:00] ramipril 10 mg capsule 10 mg PO DAILY #90 caps 07/19/22 [Rx Last Taken 01/28/23 21:30] metformin 500 mg tablet 500 mg PO DAILY 09/27/22 [History Last Taken 01/28/23 21:30] metoprolol succinate 50 mg tablet,extended release 24 hr 50 mg PO DAILY 09/27/22 [History Last Taken 01/28/23 21:30] ciprofloxacin HCl 500 mg tablet (Cipro) 500 mg PO BID #14 tabs 01/26/23 [Rx Last Taken 01/28/23 10:00] oxycodone-acetaminophen 5 mg-325 mg tablet (Endocet) 1 tab PO Q6H PRN pain 7 days #14 tabs 01/26/23 [Rx Last Taken 01/28/23 18:00] dulaglutide 1.5 mg/0.5 mL subcutaneous pen injector (Trulicity) 1.5 mg subcut TH 01/29/23 [History Last Taken 01/27/23] tamsulosin 0.4 mg capsule 0.8 mg PO QHS 02/12/23 [History Last Taken Unknown] Allergy/AdvReac Type Severity Reaction Status Date / Time amoxicillin Allergy ears Verified 02/12/23 19:51 plugged Penicillins AdvReac Intermediate Nausea, Verified 02/12/23 19:51 ears plugged Family History Mother CVA (cerebral vascular accident) Father COPD (chronic obstructive pulmonary disease) Surgical History History of cardiac catheterization History of cataract surgery History of hernia repair History of tonsillectomy History of total right hip arthroplasty RETINA SURGERY Stented coronary artery (10/06/11) Social History household members: spouse Smoking Status: Never smoker how long ago did patient quit smoking: only as teen, 2 packs entire lifetime alcohol intake: never substance use type: does not use ROS Constitutional Constitutional: Denies fever(s) or weight loss Eyes Eyes: Reports systems reviewed and no addt'l complaints, except as documented ENT HEENT: Reports systems reviewed and no addt'l complaints, except as documented Cardiovascular Cardiovascular: Reports dizziness and palpitations; Denies chest pain at rest, chest pain with activity, dyspnea at rest, dyspnea on exertion, edema or paroxysmal nocturnal dyspnea Respiratory/Chest Respiratory/Chest: Denies dyspnea on exertion, productive cough, shortness of br eath at rest or shortness of breath with exertion Gastrointestinal Gastrointestinal: Denies change in bowel habits, nausea, vomiting or weight changes Genitourinary Genitourinary: Denies difficulty urinating Musculoskeletal Musculoskeletal: Denies joint stiffness or muscle weakness Integumentary Integumentary: Denies lesions Neurologic Neurologic: Reports dizziness; Denies syncope Psychiatric Psychiatric: Denies anxiety Endocrine Endocrinology: Denies excessive sweating or fatigue Hematologic/Lymphatic Hematologic/Lymphatic: Denies anemia Allergic/Immunologic Allergic/Immunologic: Denies seasonal rhinorrhea Physical Exam Const alert, oriented x3 and no apparent distress General Appearance: cooperative HEENT hearing grossly normal bilaterally Head and Scalp: atraumatic Eyes EOMs intact bilaterally Neck General: normal visual inspection Chest inspection of chest normal and palpation of chest normal Resp normal respiratory effort Auscultation: clear to auscultation bilaterally Cardio regular rate, regular rhythm, S1 normal heart sound and S2 normal heart sound Jugular Venous Distention: JVD GI normal to inspection, nondistended, normoactive bowel sounds Extremity normal capillary refill and no pedal edema Peripheral Pulses: Yes pulses 2+ throughout and femoral pulses present Skin no rashes or lesions noted Neuro oriented x3 and CN's II-XII intact bilaterally Psych Appearance: grossly normal and appropriate Risk Stratification Risk Stratification Applicable: No Objective Data Vital Signs: Vital Signs Temp Pulse Resp BP Pulse Ox O2 Del Method 96.3 F L 76 18 155/89 H 97 Room Air 02/13/23 05:00 02/13/23 06:44 02/13/23 06:44 02/13/23 05:00 02/13/23 06:44 02/13/23 06:44 Oxygen Delivery Method Room Air Weight: 181 lb 3.2 oz Body Mass Index (BMI) 29.2 Intake & Output: Intake and Output for Last 24 Hours 02/11/23 02/12/23 02/13/23 23:59 23:59 23:59 Output Total 1075 / 1075 Balance -1075 / -1075 Lab / Micro Data 02/13/23 06:00 02/13/23 05:55 Labs: Laboratory Results - last 24 hr 02/12/23 20:10: WBC 10.5, RBC 4.73, Hgb 14.1, Hct 43.4, MCV 91.8, MCH 29.8, MCHC 32.5, RDW Std Deviation 44.8 H, RDW Coeff of [place] 13.2, Plt Count 354, MPV 10.4, Immature Gran % (Auto) 0.800, Neut % (Auto) 63.9, Lymph % (Auto) 19.9, Elbert % (Auto) 7.1, Eos % (Auto) 7.3 H, Baso % (Auto) 1.0, Absolute Neuts (auto) 6.7, Absolute Lymphs (auto) 2.09, Nucleated RBC % 0, Sodium 136, Potassium 3.8, Chloride 104, Carbon Dioxide 26.0, Anion Gap 6, BUN 15, Creatinine 0.89, Estim Creat Clear Calc 72.68, Est GFR (MDRD) Af Amer 109, Est GFR (MDRD) Non-Af 90, BUN/Creatinine Ratio 16.8, Glucose 121 H, Calcium 9.5, Magnesium 2.5, Troponin I High Sens 4 02/12/23 23:35: Troponin I High Sens 5 02/13/23 01:35: Troponin I High Sens 5 02/13/23 05:55: Sodium 137, Potassium 3.6, Chloride 106, Carbon Dioxide 25.0, Anion Gap 6, BUN 13, Creatinine 0.76, Estim Creat Clear Calc 64.69, Est GFR (MDRD) Af Amer 132, Est GFR (MDRD) Non-Af 109, BUN/Creatinine Ratio 17.2, Glucose 151 H, Calcium 9.1, Total Bilirubin 0.50, AST 16, ALT 25, Alkaline Phosphatase 95, Total Protein 6.8, Albumin 3.1 L, Globulin 3.7, Albumin/Globulin Ratio 0.8 L, TSH 0.76 02/13/23 06:00: WBC 8.7, RBC 4.45 L, Hgb 13.4, Hct 41.1, MCV 92.4, MCH 30.1, MCHC 32.6, RDW Std Deviation 44.9 H, RDW Coeff of [place] 13.3, Plt Count 329, MPV 10.3, Immature Gran % (Auto) 0.800, Neut % (Auto) 66.3, Lymph % (Auto) 16.9 L, Elbert % (Auto) 7.2, Eos % (Auto) 7.9 H, Baso % (Auto) 0.9, Absolute Neuts (auto) 5.7, Absolute Lymphs (auto) 1.46, Nucleated RBC % 0 02/13/23 06:22: POC Glucose 151 H Cardiology Labs/Tests 02/12/23 20:10: WBC 10.5, RBC 4.73, Hgb 14.1, Hct 43.4, MCV 91.8, MCH 29.8, MCHC 32.5, Plt Count 354, MPV 10.4, Immature Gran % (Auto) 0.800, Neut % (Auto) 63.9, Lymph % (Auto) 19.9, [place] % (Auto) 7.1, Eos % (Auto) 7.3 H, Baso % (Auto) 1.0, Absolute Neuts (auto) 6.7, Nucleated RBC % 0, Sodium 136, Potassium 3.8, Chloride 104, Carbon Dioxide 26.0, Anion Gap 6, BUN 15, Creatinine 0.89, Est GFR (MDRD) Af Amer 109, Est GFR (MDRD) Non-Af 90, BUN/Creatinine Ratio 16.8, Glucose 121 H, Calcium 9.5, Magnesium 2.5 02/13/23 05:55: Sodium 137, Potassium 3.6, Chloride 106, Carbon Dioxide 25.0, Anion Gap 6, BUN 13, Creatinine 0.76, Est GFR (MDRD) Af Amer 132, Est GFR (MDRD) Non-Af 109, BUN/Creatinine Ratio 17.2, Glucose 151 H, Calcium 9.1, Total Bilirubin 0.50 02/13/23 06:00: WBC 8.7, RBC 4.45 L, Hgb 13.4, Hct 41.1, MCV 92.4, MCH 30.1, MCHC 32.6, Plt Count 329, MPV 10.3, Immature Gran % (Auto) 0.800, Neut % (Auto) 66.3, Lymph % (Auto) 16.9 L, Elbert % (Auto) 7.2, Eos % (Auto) 7.9 H, Baso % (Auto) 0.9, Absolute Neuts (auto) 5.7, Nucleated RBC % 0 Rhythm: EKG: ECHO: Stress Test: Cardiac Cath: PCI: CT Surgery: Holter monitor: EPS: PPM: CXR: Chest CT Scan:
[2023-02-13] MEDS: Aspirin E.C. 81 MG Tablet PO (09:37)
[2023-02-13] MEDS: Ramipril 10 MG Capsule PO (09:38)
[2023-02-13] MEDS: Pantoprazole Sodium 40 MG Tablet PO (09:38)
[2023-02-13] MEDS: Metoprolol(XL)Succ 50 MG Tablet PO (10:26)
[2023-02-13 12:24] LABS: Bedside Glucose 111 mg/dL (74-106)
--- NOTE | 2023-02-13 12:29 | CASEMGMT ---
In-Network Tertiary Facilities: [facility], [facility], [facility], [place] , [facility], [facility], [facility], [facility] Ernesto Desai RN CM
[2023-02-13 17:44] LABS: Bedside Glucose 143 mg/dL (74-106)
--- NOTE | 2023-02-13 18:30 | PN.HOSP_ITS ---
Reason for Visit Reason for Visit: Diagnoses Hyperlipidemia, unspecified (02/12/23) Essential (primary) hypertension (02/12/23) Atherosclerotic heart disease of [place] coronary artery without angina pectoris (02/12/23) Ventricular tachycardia, unspecified (02/12/23) Subjective Subjective Patient was seen and examined today, he is going to be undergoing a cardiac catheterization tomorrow. Patient requests that he not be given subcu heparin injections, I do not think this is absolutely necessary as he is ambulatory. Objective Data Objective Data Vital Signs: Vital Signs Temp Pulse Resp BP Pulse Ox O2 Del Method 98.4 F 77 18 144/87 H 98 Room Air 02/13/23 15:03 02/13/23 15:03 02/13/23 15:03 02/13/23 15:03 02/13/23 15:03 02/13/23 15:03 Oxygen Delivery Method Room Air Weight: 82.191 kg Body Mass Index (BMI) 29.2 Intake & Output: Intake and Output for Last 24 Hours 02/11/23 02/12/23 02/13/23 23:59 23:59 23:59 Intake Total 1220 / 1220 Output Total 1075 / 1075 Balance 145 / 145 Lab / Micro Data 02/13/23 06:00 02/13/23 05:55 Labs: Laboratory Results - last 24 hr 02/12/23 20:10: WBC 10.5, RBC 4.73, Hgb 14.1, Hct 43.4, MCV 91.8, MCH 29.8, MCHC 32.5, RDW Std Deviation 44.8 H, RDW Coeff of José Antonio 13.2, Plt Count 354, MPV 10.4, Immature Gran % (Auto) 0.800, Neut % (Auto) 63.9, Lymph % (Auto) 19.9, [place] % (Auto) 7.1, Eos % (Auto) 7.3 H, Baso % (Auto) 1.0, Absolute Neuts (auto) 6.7, Absolute Lymphs (auto) 2.09, Nucleated RBC % 0, Sodium 136, Potassium 3.8, Chloride 104, Carbon Dioxide 26.0, Anion Gap 6, BUN 15, Creatinine 0.89, Estim Creat Clear Calc 72.68, Est GFR (MDRD) Af Amer 109, Est GFR (MDRD) Non-Af 90, BUN/Creatinine Ratio 16.8, Glucose 121 H, Calcium 9.5, Magnesium 2.5, Troponin I High Sens 4 02/12/23 23:35: Troponin I High Sens 5 02/13/23 01:35: Troponin I High Sens 5 02/13/23 05:55: Sodium 137, Potassium 3.6, Chloride 106, Carbon Dioxide 25.0, Anion Gap 6, BUN 13, Creatinine 0.76, Estim Creat Clear Calc 64.69, Est GFR (MDRD) Af Amer 132, Est GFR (MDRD) Non-Af 109, BUN/Creatinine Ratio 17.2, Glucose 151 H, Calcium 9.1, Total Bilirubin 0.50, AST 16, ALT 25, Alkaline Phosphatase 95, Total Protein 6.8, Albumin 3.1 L, Globulin 3.7, Albumin/Globulin Ratio 0.8 L, TSH 0.76 02/13/23 06:00: WBC 8.7, RBC 4.45 L, Hgb 13.4, Hct 41.1, MCV 92.4, MCH 30.1, MCHC 32.6, RDW Std Deviation 44.9 H, RDW Coeff of [place] 13.3, Plt Count 329, MPV 10.3, Immature Gran % (Auto) 0.800, Neut % (Auto) 66.3, Lymph % (Auto) 16.9 L, [place] % (Auto) 7.2, Eos % (Auto) 7.9 H, Baso % (Auto) 0.9, Absolute Neuts (auto) 5.7, Absolute Lymphs (auto) 1.46, Nucleated RBC % 0 02/13/23 06:22: POC Glucose 151 H 02/13/23 12:07: POC Glucose 111 H 02/13/23 17:26: POC Glucose 143 H Physical Exam Const alert, oriented x3, no apparent distress, average body habitus and healthy appearing General Appearance: cooperative, well kempt and well developed Orientation / Consciousness: awake, oriented to person, oriented to place and oriented to time HEENT normocephalic and moist oral mucous membranes Eyes PERRL, EOMs intact bilaterally and conjunctivae normal Neck supple, no JVD, thyroid normal and no carotid bruits General: trachea midline Resp normal respiratory effort and clear to auscultation bilaterally Auscultation: Negative for rales, rhonchi or wheezes Cardio regular rate, regular rhythm, S1 normal heart sound, S2 normal heart sound, no murmurs, no rub and no gallops GI normal to inspection, nondistended, normoactive bowel sounds, soft to palpation, non-tender and non-distended Extremity no clubbing, cyanosis or edema Skin no rashes or lesions noted General Skin Exam: no breakdown Neuro oriented x3, CN's II-XII intact bilaterally, no focal motor deficits and no sensory deficits noted Sensorium / Orientation: awake and alert Speech: speech normal Psych affect normal Assessment & Plan Assessment/Plan (1) Ventricular tachycardia: PLAN: Plan 1. Near syncope-with a backdrop of ventricular tachycardia on outpatient cardiac monitoring-patient was seen by cardiology, he will undergo cardiac catheterization tomorrow, I discussed with him the possibility of repeat stent placement versus no treatment at all versus going to another facility for further care as outcomes of the catheterization. #2 coronary artery disease-again patient will undergo cardiac catheterization tomorrow, patient has had a remote stent placement and 2011, he has been on platelet inhibitor since that time and a statin as well as metoprolol and AMELIA inhibitor. #3 essential hypertension-patient will remain on his current medications #4 hyperlipidemia-patient is to remain on a statin therapy #5 type 2 diabetes-patient's blood sugars would be monitored, sliding scale insulin is ordered as needed #6 GERD-patient is on a PPI #7 BPH-patient is on Flomax Total clinical time spent by myself addressing the patient's medical issues, reviewing all of his data, and collaborating with patient's care team: 35 minutes Charges/Coding Visit Charges Inpatient E&M: 45743 Subs Hosp L2
[2023-02-13] MEDS: Atorvastatin Calcium 40 MG Tablet PO (22:08)
[2023-02-13 22:29] LABS: Bedside Glucose 150 mg/dL (74-106)
[2023-02-14] VITALS (11 sets, daily range): BP systolic 129–150; BP diastolic 76–92; PULSE 74–93; RESP 14–20; TEMP 36.4–36.9; O2SAT 93–97; BMI 28.5
[2023-02-14] MEDS: 0.9% Normal Saline 1,000 ML 15 ML IV (06:56)
[2023-02-14] MEDS: Budesonide Respules 0.5 MG/2 ML AMPUL.NEB. INHALATION (07:30)
--- NOTE | 2023-02-14 08:22 | EKG12_ITS ---
Test Reason : PRE OP Blood Pressure : / mmHG Vent. Rate : 073 BPM Atrial Rate : 073 BPM P-R Int : 142 ms QRS Dur : 094 ms QT Int : 388 ms P-R-T Axes : 040 001 041 degrees QTc Int : 427 ms Normal sinus rhythm Normal ECG When compared with ECG of 12-FEB-2023 20:02, MANUAL COMPARISON REQUIRED, DATA IS UNCONFIRMED Confirmed by KISHAN ALFARO, TENA ([id number]), editorial assistant STACEY ONEAL ([id number]) on 02/16/2023 11:11:55 AM Referred By: Portia Hall Confirmed By:TENA HOLLEY MD
[2023-02-14] MEDS: Ramipril 10 MG Capsule PO (08:26)
[2023-02-14] MEDS: Aspirin E.C. 81 MG Tablet PO (08:26)
[2023-02-14] MEDS: Metoprolol(XL)Succ 50 MG Tablet PO (08:26)
--- NOTE | 2023-02-14 09:49 | PN.CARD_ITS ---
Subjective Subjective Patient seen and evaluated. Objective Data Vital Signs: Vital Signs Temp Pulse Resp BP Pulse Ox O2 Del Method 98.1 F 75 16 150/84 H 97 Room Air 02/14/23 08:09 02/14/23 08:26 02/14/23 08:09 02/14/23 08:26 02/14/23 08:09 02/14/23 08:09 Oxygen Delivery Method Room Air Weight: 177 lb 4.026 oz Body Mass Index (BMI) 28.5 Intake & Output: Intake and Output for Last 24 Hours 02/12/23 02/13/23 02/14/23 23:59 23:59 23:59 Intake Total 1220 / 1220 Output Total 1075 / 1075 Balance 145 / 145 Lab / Micro Data 02/13/23 06:00 02/13/23 05:55 Labs: Laboratory Results - last 24 hr 02/13/23 12:07: POC Glucose 111 H 02/13/23 17:26: POC Glucose 143 H 02/13/23 22:04: POC Glucose 150 H Cardiology Labs/Tests Rhythm: EKG: ECHO: Stress Test: Cardiac Cath: PCI: CT Surgery: Holter monitor: EPS: PPM: CXR: Chest CT Scan: Physical Exam Const alert, oriented x3, no apparent distress, average body habitus and healthy appearing General Appearance: cooperative, well kempt and well developed Orientation / Consciousness: awake, oriented to person, oriented to place and oriented to time HEENT normocephalic and moist oral mucous membranes Eyes PERRL, EOMs intact bilaterally and conjunctivae normal Neck supple, no JVD, thyroid normal and no carotid bruits General: trachea midline Resp normal respiratory effort and clear to auscultation bilaterally Auscultation: Negative for rales, rhonchi or wheezes Cardio regular rate, regular rhythm, S1 normal heart sound, S2 normal heart sound, no murmurs, no rub and no gallops GI normal to inspection, nondistended, normoactive bowel sounds, soft to palpation, non-tender and non-distended Extremity no clubbing, cyanosis or edema Skin no rashes or lesions noted General Skin Exam: no breakdown Neuro oriented x3, CN's II-XII intact bilaterally, no focal motor deficits and no sensory deficits noted Sensorium / Orientation: awake and alert Speech: speech normal Psych affect normal Assessment & Plan Assessment/Plan (1) Ventricular tachycardia: PLAN: He does present with dizziness and is noted to have nonsustained marley tricular tachycardia. His last estimated ejection fraction was noted to be normal. His cardiac catheterization today demonstrated patency of his vessels with some proximal calcification. No high-grade stenosis was noted * He has not tolerated beta-blockers well in the past * I will recommend discontinuing the beta-kalie * Starting diltiazem * Continue to monitor him with a event monitor (2) Atherosclerosis of coronary artery of [place] heart without angina pectoris: QUALIFIERS: Coronary Disease-Associated Artery/Lesion type: [place] artery Qualified Code(s): I25.10 - Atherosclerotic heart disease of [place] coronary artery without angina pectoris PLAN: He does have a history of coronary disease status post PCI of the ramus intermedius. This vessel is noted to be patent with minimal in-stent stenosis (3) Essential hypertension: PLAN: He does have a history of hypertension his blood pressure appears to be under fair control at this time, and I would suggest the continuation of his AMELIA inhibitor. If it is still persistently elevated we may add a calcium channel kalie (4) Hyperlipidemia: QUALIFIERS: Hyperlipidemia type: unspecified Qualified Code(s): E78.5 - Hyperlipidemia, unspecified PLAN: We will continue with risk factor modification. Thank you for allowing me to participate in the care of your patient. Please don't hesitate to call if any issues arise.
--- NOTE | 2023-02-14 10:01 | CL.D_ITS ---
Patient Name: ESTELLE ROWLAND Study Date: 02/14/2023 Performing: Fazal Mansfield MD Ht: 66 inches 167.64 cm : 1955 Wt: 177.5 lbs 80.4 kg Age: 67 Gender: male BSA: 1.9 PROCEDURE(S) PERFORMED [id number]-([id number])LHC/COR/LV CLINICAL PROFILE AND INDICATIONS Indications: Cardiac Arrythmia Heart Failure: None Stress/Imaging Stress/Image Study Performed: No CAD Presentations: Other: VT CONCLUSIONS Nonobstructive coronary disease. Previously placed stents patent in the ramus intermedius. Calcification noted of the proximal LAD and proximal right coronary artery. Preserved ejection fraction. RECOMMENDATIONS Medical therapy DESCRIPTION OF PROCEDURE The patient arrived to the procedure lab. The risks and benefits of the procedure as well as a full description of our services here and current unavailability of surgical backup were fully explained to the patient and/or their significant other prior to the catheterization. The Timeout was completed, verifying the correct patient and procedure. The patient's procedural site was prepped and draped in the usual fashion. Local anesthetic was given subcutaneously to right radial region with Lidocaine 2%. Using a modified Seldinger technique, arterial access was obtained via the right radial artery, a 6Fr sheath was inserted. Left Coronary Artery selective angiography was performed in multiple views using a 5 Fr. 4.0 Matthews catheter. Right Coronary Artery selective angiography was then performed in multiple views using a 5 Fr. JR 4 catheter. Left Ventriculography was performed in HUTTON projection using a 5 Fr. Pigtail catheter. LV to AO pullback pressures were then recorded.sheath flushed and aspirated and The arterial sheath was pulled and a TR Band was applied for hemostasis. 10cc of air CORONARY ANGIOGRAPHY DOMINANCE: Right Dominant LEFT HEART ASSESSMENT Left Ventricular Ejection Fraction: by LV Gram 55 % Normal LV wall motion Normal Left Ventricular systolic function LEFT MAIN: Mild calcification, No significant disease noted LEFT ANTERIOR DESCENDING ARTERY: Moderate calcification, Moderate luminal irregularities up to 50% CIRCUMFLEX ARTERY: Mild luminal irregularities RAMUS: Previously stented vessel is patent with no high-grade stenosis present RIGHT CORONARY ARTERY: Proximal calcification with tortuosity but no high-grade stenosis present. COMPLICATIONS No Complications PROCEDURE MEDICATIONS Fentanyl 50 mcg IV Versed 1 mg IV Versed 1 mg IV Oxygen: 2 L/min via nasal cannula Heparin given IA 02/14/2023 09:24:18 Verapamil 2.5mg, Ntg 100mcgs, 3000 units of Heparin given IA 02/14/2023 09:24:18 SUMMARY OF HEMODYNAMIC DATA Time AIR REST ECG 09:06:41 Art 126/63 (84) 09:27:59 AO 122/75 (97) SA 09:29:23 LV 129/13, 18 09:42:12 LV 132/7, 9 09:42:21 LV 125/6, 8 09:43:23 LVp 126/3, 8 09:43:31 AOp 142/74 (105) 09:43:38 Signed By Fazal Mansfield MD On 02/14/2023 10:00:42 Fazal Mansfield MD
--- NOTE | 2023-02-14 11:02 | PCM.DC.SUM ---
Providers Date of Admission: 02/12/23 Date of Discharge: 03/17/23 Primary Care Physician: Dr. El Cruz MD Consultations 02/12/23 23:06 Consult: Cardiology Routine Consulting Provider: Fazal Mansfield Reason for Consult: Recurrent near syncope, [place] EMERGENT Consult: No MD Notified: Yes Date Notified: 02/12/23 Time Notified: 22:13 Method of Notification: ED Physician Initiated Reason For Visit: NEAR SYNCOPE, [place] Diagnosis Discharge Diagnosis (1) Ventricular tachycardia: Status: Acute Code(s): I47.20 - Ventricular tachycardia, unspecified (2) Atherosclerosis of coronary artery of [place] heart without angina pectoris: Status: Chronic Code(s): I25.10 - Atherosclerotic heart disease of [place] coronary artery without angina pectoris Qualifiers: Coronary Disease-Associated Artery/Lesion type: [place] artery Qualified Code(s): I25.10 - Atherosclerotic heart disease of [place] coronary artery without angina pectoris (3) Essential hypertension: Status: Acute Code(s): I10 - Essential (primary) hypertension (4) Hyperlipidemia: Status: Chronic Code(s): E78.5 - Hyperlipidemia, unspecified Qualifiers: Hyperlipidemia type: unspecified Qualified Code(s): E78.5 - Hyperlipidemia, unspecified Medications at Discharge Home Medications albuterol sulfate 90 mcg/actuation aerosol inhaler (ProAir HFA) 2 puff inhalation Q6H PRN bronchospasm #18 grams 02/07/18 aspirin 81 mg tablet,delayed release (Adult Aspirin Regimen) 81 mg PO DAILY 06/26/19 atorvastatin 40 mg tablet 40 mg PO QHS CHOLESTEROL #90 tabs 06/30/20 budesonide-formoterol HFA 80 mcg-4.5 mcg/actuation aerosol inhaler (Symbicort) 1 puff inhalation QHS 10/26/21 omeprazole 40 mg capsule,delayed release 40 mg PO DAILY 10/26/21 metformin 500 mg tablet 500 mg PO DAILY 09/27/22 ciprofloxacin HCl 500 mg tablet (Cipro) 500 mg PO BID #14 tabs 01/26/23 oxycodone-acetaminophen 5 mg-325 mg tablet (Endocet) 1 tab PO Q6H PRN pain 7 days #14 tabs 01/26/23 dulaglutide 1.5 mg/0.5 mL subcutaneous pen injector (Trulicity) 1.5 mg subcut TH 01/29/23 tamsulosin 0.4 mg capsule 0.8 mg PO QHS 02/12/23 diltiazem HCl 180 mg capsule,extended release 24 hr 180 mg PO DAILY #30 caps 02/14/23 ramipril 5 mg capsule 5 mg PO DAILY #30 caps 02/14/23 Hospital Course Operations None Procedures Cardiac catheterization and EKG Summary of Care Provided Minutes Spent on Discharge: 30 Hospital Course: Mr. Rhoades is a 67-year-old white male who presented to the emergency department was prehospital on 02/12/2023 with recurrent near syncopal episodes. The patient had been experiencing these for several months with sudden onset near syncopal episodes associated with lightheadedness and dizziness. He had been wearing an event monitor after some recent prostate surgery as he had an abnormal EKG at that time and it appeared that he had some wide-complex tachyarrhythmias. Given these findings he was sent to the emergency department to be evaluated. He does have a remote history of CAD status post stent from his STEMI in 2019 and 2011 and is status post PCI. He also has a history of hypertension hyperlipidemia along with diabetes. Previous EF was 35% however subsequent echocardiogram showed an EF of 65% done in July 2019. He also underwent a stress test in September 2021 which did not demonstrate any evidence of ischemia. He was admitted the hospital given the concern for ventricular tachycardia and taken to the cardiac catheterization lab on 02/14/2023 and was found to have patency of all his vessels with some proximal calcification but no high-grade stenosis or intervention was noted or required. Cardiology made some medication changes to include discontinuing his beta-kalie due to intolerance, initiation of Cardizem and decreasing his ramipril dose from 10 mg daily to 5 mg daily. He will be maintained on his event monitor until follow-up with cardiology on 02/28/2023. Medication changes and follow-up plans were discussed with the patient prior to discharge and he voiced understanding. He is able to return to work on Tuesday without any difficulty. Discharge diagnoses: Ventricular tachycardia CAD HTN HPL DM-2 GERD BPH COPD Physical Exam Const alert, oriented x3, no apparent distress, no limitations, healthy appearing and well nourished Constitutional Narrative: Overweight, upper mid legs, white male, sitting up in bed, nursing at bedside, appears comfortable and nontoxic, has just returned from the [employer] General Appearance: cooperative, comfortable, well kempt and well developed Orientation / Consciousness: awake, oriented to person, oriented to place and oriented to time Exam Limitations: no limitations Nutritional Appearance: overweight HEENT normocephalic, head/scalp atraumatic and hearing grossly normal bilaterally HEENT Narrative: Mallampati 3, no thrush Resp normal respiratory effort, no retractions, no use of accessory muscles and clear to auscultation bilaterally Auscultation: Negative for rales, rhonchi or wheezes Cardio regular rate, regular rhythm, S1 normal heart sound, S2 normal heart sound, no murmurs, no rub, no gallops and no clicks GI normal to inspection, nondistended, normoactive bowel sounds, soft to palpation and non-tender Extremity no clubbing, cyanosis or edema Extremity Narrative: Pedal pulses are 2+, right radial area of the wrist with post cath compression device in place Neuro oriented x3, CN's II-XII intact bilaterally, moves all extremities and no focal motor deficits Speech: speech normal Psych affect normal Psych Narrative: Eye contact is good, patient is appropriately interactive Weight / BMI Weight Weight: 80.4 kg Body Mass Index (BMI) 28.5 ABG / Lab / Microbiology Data 02/13/23 06:00 02/13/23 05:55 Laboratory: Laboratory Results - last 24 hr 02/13/23 12:07: POC Glucose 111 H 02/13/23 17:26: POC Glucose 143 H 02/13/23 22:04: POC Glucose 150 H D/C Instructions Discharge Diet: Low fat / Low cholesterol and 1800 Calorie Control Diet Discharge Activity: Return to Normal Activity Return to work on: 02/16/23 Meaningful Use Info Meaningful Use Diagnoses (Choose all that apply): None applicable Discharge Plan Admission Admit Date/Time: 02/12/23 22:12 Primary Reason for Your Visit: Pre-syncope Attending Provider: Talia Baeza Primary Care Provider: El Cruz Consulting Providers: Fazal Mansfield; Portia Hall; Gt Freeman Instructions Additional Instructions / Restrictions: Please continue to wear your event monitor until instructed otherwise by cardiology Discharge Orders/Prescriptions Prescriptions: New diltiazem HCl 180 mg Capsule,Extended Release 24hr 180 mg PO DAILY Qty: 30 0RF ramipril 5 mg Capsule 5 mg PO DAILY Qty: 30 0RF Continued albuterol sulfate [ProAir HFA] 90 mcg/actuation HFA aerosol inhaler 2 puff INHALATION Q6H PRN (Reason: bronchospasm) Qty: 18 1RF Rx Instructions: administer with spacer aspirin [Adult Aspirin Regimen] 81 mg tablet,delayed release (DR/EC) 81 mg PO DAILY Symbicort 80-4.5 mcg/actuation HFA aerosol inhaler 1 puff INHALATION QHS metformin 500 mg tablet 500 mg PO DAILY atorvastatin 40 mg tablet 40 mg PO QHS Qty: 90 3RF omeprazole 40 mg capsule,delayed release(DR/EC) 40 mg PO DAILY ciprofloxacin HCl [Cipro] 500 mg tablet 500 mg PO BID Qty: 14 0RF oxycodone-acetaminophen [Endocet] 5-325 mg tablet 1 tab PO Q6H PRN (Reason: pain) 7 Days Qty: 14 0RF Trulicity 1.5 mg/0.5 mL pen injector 1.5 mg SUBCUT TH Patient Comments: INJECT CONTENTS OF 1 PEN SUBCUTANEOUSLY ONCE WEEKLY tamsulosin 0.4 mg capsule 0.8 mg PO QHS Patient Comments: TAKE 2 CAPSULES BY MOUTH EVERY DAY AT BEDTIME Discontinued metoprolol succinate 50 mg tablet extended release 24 hr 50 mg PO DAILY ramipril 10 mg capsule 10 mg PO DAILY Qty: 90 3RF Referrals / Follow Up: Fazal Mansfield MD [Med Staff - Active Staff] - 03/01/23 9:30 am (Appointment is with Candy Robertson N.P.) El Cruz MD [Primary Care Provider] - Within 1 Week Disposition Disposition (needs filled in before D/C Order can be placed): Home, Self Care Charges/Coding Visit Charges Inpatient E&M: 30581 Disch Hosp
[2023-02-14] MEDS: Pantoprazole Sodium 40 MG Tablet PO (11:06)
[2023-02-14] MEDS: dilTIAZem CD 180 MG Capsule PO (11:06)
[2023-02-14 11:29] LABS: Bedside Glucose 145 mg/dL (74-106)
--- NOTE | 2023-02-14 12:04 | CASEMGMT ---
MARISA FABIAN in to complete CARRERO form. MARISA FABIAN explained CARRERO form to patient, patient voiced understanding. Patient signed CARRERO form and filed in chart. Patient provided a copy of signed CARRERO form. Patient had no further questions or concerns at this time.
--- NOTE | 2023-02-14 12:46 | NURSING ---
0830: Report called to MARISA Santamaria in [employer].
== END 2023-02-14 11:07 | disposition home or self-care (01) ==
LOC: ED 22:06 → PCU 22:19
PROVIDERS: Internal Medicine; Admitting Provider Family Medicine; Emergency Provider Emergency Medicine; PCP Family Medicine; Referring Provider Family Medicine; Visit Provider Internal Medicine
DX: I47.20 Ventricular tachycardia, unspecified (principal); J44.9 Chronic obstructive pulmonary disease, unspecified; N40.0 Benign prostatic hyperplasia without lower urinary tract symptoms; I10 Essential (primary) hypertension; Z79.82 Long term (current) use of aspirin; K21.9 Gastro-esophageal reflux disease without esophagitis; Z79.84 Long term (current) use of oral hypoglycemic drugs; I25.10 Atherosclerotic heart disease of native coronary artery without angina pectoris; E78.00 Pure hypercholesterolemia, unspecified; R00.2 Palpitations; Z79.51 Long term (current) use of inhaled steroids; Z79.899 Other long term (current) drug therapy; Z95.5 Presence of coronary angioplasty implant and graft; R55 Syncope and collapse; Z87.891 Personal history of nicotine dependence; E66.9 Obesity, unspecified; Z68.29 Body mass index [BMI] 29.0-29.9, adult
CPT/HCPCS: 36415; 80048; 80053; 82962; 83735; 84443; 84484; 85025; 93005; 93306; 93458; 94640; 94668; 96360; 96361; 99152; 99153; 99221; 99285; J7030; J7040; Q9967; A4216; C1769; C1894; G0378

== ENCOUNTER → 2023-06-06 | Outpatient (CLI) | payer MEDICARE, SELFPAY ==
[2023-06-06 11:15] LABS: PSA,Total - Annual Screen 0.49 ng/mL (0.00-4.00)
== END | disposition home or self-care (01) ==
LOC: LAB 09:43
PROVIDERS: PCP Family Medicine; Referring Provider Nurse Practitioner; Visit Provider Nurse Practitioner
DX: Z12.5 Encounter for screening for malignant neoplasm of prostate (principal)
CPT/HCPCS: 36415; 84153; 84403; G0103

== ENCOUNTER → 2023-09-08 | Outpatient (CLI) | payer MEDICARE, SELFPAY ==
--- NOTE | 2023-09-08 11:34 | RAD_ITS ---
STUDY: X-RAY - ABDOMEN/PELVIS REASON FOR EXAM: Male, 68 years old. ABD PAIN TECHNIQUE: Two AP supine views of the abdomen and pelvis. COMPARISON: None. FINDINGS: Normal visualized lung bases. There is an unremarkable bowel gas pattern. There is no demonstrated free abdominal air. The visualized liver, spleen and kidneys are grossly normal in size and morphology. Normal soft tissue structures. There are diffuse degenerative changes of the visualized lumbar spine, and pelvis. Replaced right hip joint free of complication RAD/Abdomen Single View IMPRESSION: No abnormal findings Electronically Signed: Gordy Gabriel MD at 19:15 EST ,
== END | disposition home or self-care (01) ==
LOC: RAD 11:29
PROVIDERS: PCP Family Medicine; Referring Provider Nurse Practitioner; Visit Provider Nurse Practitioner
DX: N20.0 Calculus of kidney (principal); R10.84 Generalized abdominal pain
CPT/HCPCS: 74018

== ENCOUNTER 2024-01-11 06:04 | Day surgery (SDC) | payer MEDICARE, SELFPAY ==
[2024-01-11] MEDS: Lactated Ringers 1,000 ML 15 ML IV (06:41)
[2024-01-11 06:43] VITALS: BP 155/98; PULSE 91; RESP 16; TEMP 36.9; O2SAT 97; BMI 28.9
--- NOTE | 2024-01-11 07:15 | COLBX_PTH ---
PATIENT: ESTELLE ROWLAND LOC: EN U#:[id number] AGE/SX: 68/M ROOM: RE01/11/[address]: Dr. Lkue Mojica DO : 1955 BED: DIS: 01/11/2024 SPEC #: [id number] RECD: 01/11/24 08:49 STATUS: KATE JACKSON #: [id number] JULY: 01/11/24 07:[address]: Luke Mojica DEPT: SURGICAL PATHOLOGY RECD BY: Yolanda Ware ENTERED: 01/11/24 10:45 SP TYPE: COLON BX OTHR DR: Dr. Benjamin Cruz MD Tissues: Transverse colon Procedures: Surgery Specimen Level IV HEADER OPERATION: Colonoscopy with biopsy PRE-OP DIAGNOSIS: Encounter for screening for malignant neoplasm of colon TISSUE SUBMITTED: Transverse colon polyp MICROSCOPIC DIAGNOSIS Transverse colon polyp, biopsy: Tubular adenoma. AM/mr 01/12/2024 MICROSCOPIC DESCRIPTION Slides are reviewed. GROSS DESCRIPTION Received in fixative is one container labeled with the patient's name and designated Transverse colon polyp. The specimen consists of one irregular fragment of light malik soft tissue that measures 0.3 x 0.2 x 0.1 cm. The specimen is totally submitted in one cassette. AM/ 01/11/2024 TC:5 CPT:58440
--- NOTE | 2024-01-11 07:22 | HP.PCM_ITS ---
[facility] - General General Date of Admission: 01/11/24 Date of Service: 01/11/24 Chief Complaint: Screening colonoscopy HPI Narrative ESTELLE ROWLAND, is a 68 M who presents today for screening colonoscopy. He had a colonoscopy approximately 20 years ago. He does not have any problems with his bowels. He does have past medical history of type 2 diabetes, asthma, coronary artery disease status post PTCA with stents in 2011. He also has a history of non-ST segment elevation MT. At this time he is not have any chest pain or shortness of breath. [facility] Medical History Abnormal virtual colonoscope Hx of colonic polyps Ventricular tachycardia Hernia Rectal abnormality Rectal abnormality Tinnitus of both ears Bruising Diabetes Arthritis Prostate disease High cholesterol Easy bruising Syncope Gastric reflux Non-smoker History of pain when walking History of echocardiogram History of stress test Hypertension Cardiology follow-up encounter History of heart attack History of irregular heartbeat Essential hypertension TIA (transient ischemic attack) (04/13/18) History of non-ST elevation myocardial infarction (NSTEMI) (10/06/11) Atherosclerosis of coronary artery of [place] heart without angina pectoris Diabetes mellitus, type II Hypertension Hyperlipidemia Asthma Home Medications ?Medication ?Instructions ?Recorded ?Last Taken ?Type albuterol sulfate 90 mcg/actuation 2 puff inhalation Q6H PRN 02/07/18 01/11/24 Rx aerosol inhaler (ProAir HFA) bronchospasm #18 grams aspirin 81 mg tablet,delayed 81 mg PO DAILY 06/26/19 01/08/24 History release (Adult Aspirin Regimen) atorvastatin 40 mg tablet 40 mg PO QHS CHOLESTEROL #90 tabs 06/30/20 01/10/24 Rx budesonide-formoterol HFA 80 1 puff inhalation QHS 10/26/21 01/10/24 History mcg-4.5 mcg/actuation aerosol inhaler (Symbicort) omeprazole 40 mg capsule,delayed 40 mg PO DAILY 10/26/21 01/10/24 History release metformin 500 mg tablet 500 mg PO DAILY 09/27/22 01/09/24 History sildenafil 100 mg tablet 100 mg PO PRN PRN ed 09/19/23 01/09/24 History diltiazem HCl 180 mg 180 mg PO DAILY #30 caps 10/18/23 01/10/24 Rx capsule,extended release 24 hr cholecalciferol (vitamin D3) 125 125 mcg PO DAILY 12/30/23 01/10/24 History mcg (5,000 unit) capsule nitroglycerin 0.3 mg sublingual 0.3 mg sublingual Q5M PRN chest 12/30/23 Unknown History tablet pain semaglutide 1 mg/dose (4 mg/3 mL) 1 mg subcut QWEEK 12/30/23 01/05/24 History subcutaneous pen injector (Ozempic) triamcinolone acetonide 55 mcg 2 spray intranasal DAILY 12/30/23 01/10/24 History nasal spray aerosol (Nasacort Allergy) Allergy/AdvReac Type Severity Reaction Status Date / Time amoxicillin Allergy ears Verified 01/11/24 06:18 plugged Penicillins AdvReac Intermediate Nausea, Verified 01/11/24 06:18 ears plugged ramipril AdvReac Intermediate Low blood Verified 01/11/24 06:18 pressure Family History Mother CVA (cerebral vascular accident) Father COPD (chronic obstructive pulmonary disease) Surgical History Hx of prostatectomy History of prostate surgery History of cardiac catheterization Stented coronary artery (10/06/11) History of total right hip arthroplasty History of cataract surgery History of hernia repair RETINA SURGERY History of tonsillectomy Social History household members: spouse Smoking Status: Never smoker how long ago did patient quit smoking: only as teen, 2 packs entire lifetime alcohol intake: never substance use type: does not use ROS Constitutional Constitutional: Denies fever(s) or weight loss Eyes Eyes: Reports systems reviewed and no addt'l complaints, except as documented ENT HEENT: Reports systems reviewed and no addt'l complaints, except as documented Cardiovascular Cardiovascular: Reports dizziness and palpitations; Denies chest pain at rest, chest pain with activity, dyspnea at rest, dyspnea on exertion, edema or paroxysmal nocturnal dyspnea Respiratory/Chest Respiratory/Chest: Denies dyspnea on exertion, productive cough, shortness of breath at rest or shortness of breath with exertion Gastrointestinal Gastrointestinal: Denies change in bowel habits, nausea, vomiting or weight changes Genitourinary Genitourinary: Denies difficulty urinating Musculoskeletal Musculoskeletal: Denies joint stiffness or muscle weakness Integumentary Integumentary: Denies lesions Neurologic Neurologic: Reports dizziness; Denies syncope Psychiatric Psychiatric: Denies anxiety Endocrine Endocrinology: Denies excessive sweating or fatigue Hematologic/Lymphatic Hematologic/Lymphatic: Denies anemia Allergic/Immunologic Allergic/Immunologic: Denies seasonal rhinorrhea Vital Signs Vital Signs Vital Signs: 01/11/24 06:43 01/11/24 06:43 Temperature 98.5 F Temperature Source Temporal Pulse Rate 91 Respiratory Rate 16 Respiratory Pattern Normal Blood Pressure 155/98 H Blood Pressure Mean 117 Blood Pressure Source Monitor Blood Pressure Position Semi-Fowlers Blood Pressure Location Right Arm Pulse Ox 97 Oxygen Delivery Method Room Air Weight Weight: 179 lb 3.773 oz Body Mass Index (BMI) 28.9 Physical Exam Const alert, oriented x3, no apparent distress, average body habitus and healthy a ppearing General Appearance: cooperative, well kempt and well developed Orientation / Consciousness: awake, oriented to person, oriented to place and or iented to time HEENT normocephalic and moist oral mucous membranes Eyes PERRL, EOMs intact bilaterally and conjunctivae normal Neck supple, no JVD, thyroid normal and no carotid bruits General: trachea midline Resp normal respiratory effort and clear to auscultation bilaterally Auscultation: Negative for rales, rhonchi or wheezes Cardio regular rate, regular rhythm, S1 normal heart sound, S2 normal heart sound, no murmurs, no rub and no gallops GI normal to inspection, nondistended, normoactive bowel sounds, soft to palpation, non-tender and non-distended Extremity no clubbing, cyanosis or edema Skin no rashes or lesions noted General Skin Exam: no breakdown Neuro oriented x3, CN's II-XII intact bilaterally, no focal motor deficits and no sensory deficits noted Sensorium / Orientation: awake and alert Speech: speech normal Psych affect normal Assessment & Plan Assessment/Plan (1) Encounter for screening for malignant neoplasm of colon: PLAN: He will undergo screening colonoscopy. He was explained alternatives, risk, benefits include not withstanding bleeding, infection, sepsis, perforation, need for emergent urgent . He will have an ASA of 3.
[2024-01-11 07:47] VITALS: BP 121/80; BP 155/98; PULSE 82; RESP 16; TEMP 36.1; O2SAT 94
--- NOTE | 2024-01-11 07:47 | OP.CCLET_ITS ---
01/11/2024 El Cruz [address] [place] [address] Re : Colonoscopy procedure for Gilberto Rhoades Dear Dr. Cruz This procedure was performed on Thursday, January 11, 2024. My impressions and recommendations are as follows: Impressions : - One 5 mm polyp in the transverse colon, removed with a jumbo cold forceps. Resected and retrieved. - Diverticulosis in the recto-sigmoid colon, in the sigmoid colon and in the descending colon. - The examination was otherwise normal on direct and retroflexion views. Recommendations : - Discharge patient to home. - Resume previous diet. - Continue present medications. - Await pathology results. - Repeat colonoscopy in 5 years for surveillance. My findings are described in the full procedure note, which is enclosed. If I can be of further assistance, please feel free to contact me at . Sincerely, Luke Mojica, 01/11/2024 7:46:51 AM This report has been signed electronically.
--- NOTE | 2024-01-11 07:47 | OP.COLON_ITS ---
Patient Name: Gilberto Rhoades Procedure Date: 01/11/2024 7:21 AM Date of : 1955 Age: 68 Procedure: Colonoscopy Indications: Screening for colorectal malignant neoplasm Providers: Luke Mojica DO Medicines: Monitored Anesthesia Care Patient Profile: This is a 68 year old male. Refer to note in patient chart for documentation of history and physical. Last Colonoscopy: more than 10 years ago. Complications: No immediate complications. Procedure: Pre-Anesthesia Assessment: - Prior to the procedure, a History and Physical was performed, and patient medications and allergies were reviewed. The risks and benefits of the procedure and the sedation options and risks were discussed with the patient. All questions were answered and informed consent was obtained. Patient identification and proposed procedure were verified by the physician. Mental Status Examination: normal. Respiratory Examination: clear to auscultation. Prophylactic Antibiotics: The patient does not require prophylactic antibiotics. Prior Anticoagulants: The patient has taken no anticoagulant or antiplatelet agents. After reviewing the risks and benefits, the patient was deemed in satisfactory condition to undergo the procedure. The anesthesia plan was to use minimal sedation / analgesia (anxiolysis). Immediately prior to administration of medications, the patient was re-assessed for adequacy to receive sedatives. The heart rate, respiratory rate, oxygen saturations, blood pressure, adequacy of pulmonary ventilation, and response to care were monitored throughout the procedure. The physical status of the patient was re-assessed after the procedure. After I obtained informed consent, the scope was passed under direct vision. Throughout the procedure, the patient's blood pressure, pulse, and oxygen saturations were monitored continuously. The Colonoscope was introduced through the anus and advanced to the cecum, identified by appendiceal orifice and ileocecal valve. Scope In: 7:32:02 AM Scope Withdrawal Time 0 hours 8 minutes 16 seconds Scope Out: 7:42:54 AM Total Procedure Duration Time 0 hours 10 minutes 52 seconds Findings: The perianal and digital rectal examinations were normal. A 5 mm polyp was found in the transverse colon. The polyp was sessile. The polyp was removed with a jumbo cold forceps. Resection and retrieval were complete. Verification of patient identification for the specimen was done. Estimated blood loss was minimal. A few small-mouthed diverticula were found in the recto-sigmoid colon, sigmoid colon and descending colon. The exam was otherwise without abnormality on direct and retroflexion views. Impression: - One 5 mm polyp in the transverse colon, removed with a jumbo cold forceps. Resected and retrieved. - Diverticulosis in the recto-sigmoid colon, in the sigmoid colon and in the descending colon. - The examination was otherwise normal on direct and retroflexion views. Recommendation: - Discharge patient to home. - Resume previous diet. - Continue present medications. - Await pathology results. - Repeat colonoscopy in 5 years for surveillance. Procedure Code(s): --- Professional --- 54458, Colonoscopy, flexible; with biopsy, single or multiple CPT copyright 2021 [employer]. All rights reserved. The codes documented in this report are preliminary and upon silk weaver review may be revised to meet current compliance requirements. Luke Mojica DO 01/11/2024 7:46:51 AM This report has been signed electronically. Number of Addenda: 0 Note Initiated On: 01/11/2024 7:21 AM
[2024-01-11 07:50] VITALS: BP 123/81; BP 155/98; PULSE 79; RESP 16; O2SAT 94
[2024-01-11 07:54] LABS: Bedside Glucose 173 mg/dL (74-106)
[2024-01-11 07:55] VITALS: BP 122/79; BP 155/98; PULSE 76; RESP 16; O2SAT 93
[2024-01-11 08:00] VITALS: BP 122/73; BP 155/98; PULSE 80; RESP 16; TEMP 36.7; O2SAT 94
[2024-01-11 08:15] VITALS: BP 155/98
== END 2024-01-11 08:27 | disposition home or self-care (01) ==
LOC: EN 06:06 → AC 06:08
PROVIDERS: PCP Family Medicine; Referring Provider Family Medicine; Visit Provider Internal Medicine Gastroenterology
PROC: 0DJD8ZZ Inspection of Lower Intestinal Tract, Via Natural or Artificial Opening Endoscopic (ICD-10-PCS; CPT 45378; principal; 2024-01-11 07:10)
DX: Z12.11 Encounter for screening for malignant neoplasm of colon (principal); E11.9 Type 2 diabetes mellitus without complications; K57.30 Diverticulosis of large intestine without perforation or abscess without bleeding; I25.10 Atherosclerotic heart disease of native coronary artery without angina pectoris; K63.5 Polyp of colon; E78.00 Pure hypercholesterolemia, unspecified; Z79.82 Long term (current) use of aspirin; Z79.51 Long term (current) use of inhaled steroids; I10 Essential (primary) hypertension; Z79.84 Long term (current) use of oral hypoglycemic drugs; I25.2 Old myocardial infarction; Z86.73 Personal history of transient ischemic attack (TIA), and cerebral infarction without residual deficits; J45.909 Unspecified asthma, uncomplicated; K21.9 Gastro-esophageal reflux disease without esophagitis; Z79.899 Other long term (current) drug therapy; Z79.85 Long-term (current) use of injectable non-insulin antidiabetic drugs; Z90.79 Acquired absence of other genital organ(s); Z95.5 Presence of coronary angioplasty implant and graft; Z96.641 Presence of right artificial hip joint
CPT/HCPCS: 45380; 82962; 88305; J7120; J2405

== ENCOUNTER → 2024-04-17 | Outpatient (CLI) | payer MEDICARE, SELFPAY ==
--- NOTE | 2024-04-17 07:52 | CT_ITS ---
STUDY: CT ABDOMEN AND PELVIS WITH CONTRAST REASON FOR EXAM: Male, 69 years old. Swelling - eval possible inguinal hernia RADIATION DOSAGE (If Supplied By Facility): CTDIvol = ( 17.89 ) mGy, DLP = ( 1031.64 ) mGycm TECHNIQUE: Transaxial images were obtained from the dome of the diaphragm to the symphysis pubis with oral contrast. Oral and amp; IV Readi-CAT and amp; 100mL Isovue-300 was administered. Sagittal and coronal images were reconstructed. Individualized dose optimization techniques were used for this CT. COMPARISON: Comparison is made with prior study May 22, 2021. FINDINGS: Stable mild scarring at the right lung base. No coronary calcification is seen. Normal liver. Normal gallbladder and extrahepatic biliary system. Normal spleen. Normal pancreas. Normal bilateral adrenal glands. Once again, there are small layering calculi in the midpole calyx of the right kidney. Minimal fullness of both renal pelves. Normal left kidney. Normal visualized stomach. Normal small intestine. There are scattered colonic diverticula consistent with diverticulosis. There is non-visualization of the appendix. There is scattered atherosclerotic calcification of the abdominal aorta, without a demonstrated aneurysm. Normal inferior vena cava. Normal retroperitoneum. Normal urinary bladder. There are prostatic calcifications. There is evidence of prior TURP. Bilateral inguinal hernias containing fat more prominent on the left side. There are degenerative changes of the visualized lumbar spine. The patient is status post right total hip replacement. CT/Abdomen/Pelvis WITH Contrast IMPRESSION: Nonobstructive calculi in the midpole calyx of the right kidney. Bilateral inguinal hernias containing fat more prominent on the left side. Electronically Signed: Roberto Carlos Erwin MD at 10:07 EDT ,
[2024-04-17 08:17] LABS: CREATININE FINGERSTICK < 1.0 mg/dL (0.70-1.30); EGFR FINGERSTICK > 60.0000 mL/min (>60)
== END | disposition home or self-care (01) ==
LOC: CT 07:51
PROVIDERS: PCP Family Medicine; Referring Provider Registered Nurse; Visit Provider Registered Nurse
DX: R19.00 Intra-abdominal and pelvic swelling, mass and lump, unspecified site (principal)
CPT/HCPCS: 74177; Q9967

== ENCOUNTER 2024-07-30 05:59 | Day surgery (SDC) | payer MEDICARE, SELFPAY ==
--- NOTE | 2024-07-20 07:48 | EKG12_ITS ---
Test Reason : PREOP Blood Pressure : */* mmHG Vent. Rate : 75 BPM Atrial Rate : 75 BPM P-R Int : 134 ms QRS Dur : 98 ms QT Int : 396 ms P-R-T Axes : 44 1 62 degrees QTcB Int : 442 ms Normal sinus rhythm Normal ECG Confirmed by Ian Reeves ([id number]), make up editor STACEY ONEAL ([id number]) on 07/23/2024 9:08:19 AM Referred By: Amos Carlos Confirmed By: Ian Reeves
[2024-07-20 08:37] LABS: Hematocrit 45.5 % (40-54); Mean Corpuscular Hgb 30.1 pg (27.0-32.0); Mean Corpuscular Volume 91.2 fL (80-94); Platelet Count 259 K/mm3 (150-450); RBC Distribution Width CV 13.5 % (11.6-14.6); RBC Distribution Width SD 45.4 fl (35.1-43.9); Red Blood Count 4.99 M/mm3 (4.6-6.2); White Blood Count 9.8 K/mm3 (4.4-11.0)
[2024-07-20 09:13] LABS: Anion Gap 5 (5-15); BUN 13 mg/dL (7-18); BUN/Creat Ratio 13.9 RATIO (10-20); Calcium,Total 9.1 mg/dL (8.5-10.1); Chloride 103 mmol/L (98-107); Creatinine, Serum 0.93 mg/dL (0.70-1.30); EST Glomerular Filtration Rate 85 mL/min (>60); Est Glom Filt Rate - Afr Amer 103 mL/min (>60); Glucose 181 mg/dL (74-106); Potassium 3.5 mmol/L (3.5-5.1); Sodium Level 137 mmol/L (136-145)
[2024-07-20 09:31] LABS: Hemoglobin A1c 6.1 % (3.8-5.6)
[2024-07-30] VITALS (8 sets, daily range): BP systolic 116–144; BP diastolic 70–87; PULSE 74–83; RESP 16; TEMP 36.6; O2SAT 91–97; BMI 27.0
--- NOTE | 2024-07-30 06:31 | HP.PCM_ITS ---
History and Physical Date of Admission: 07/30/24 Intake Vital Signs 05/17/2415:17 06/19/2410:25 07/09/2414:31 Height 5 ft 6 in 5 ft 6 in 5 ft 6 in Weight: 168 lb 167 lb 7 oz BMI 27.1 27.0 BP 133/79 H 135/78 H Blood Pressure Location Lt brachial Rt brachial Position Sitting Sitting Respiration 16 18 Pulse 83 77 Pulse Source Monitor Monitor Temp 97.2 F L Temp Source Temporal Pulse Oximetry (%) 96 Oxygen Delivery Method room air Intake Visit Reasons: BILATERAL INGUINAL HERNIA Chief Complaint: bilateral inguinal hernia Is patient in pain?: No Allergies amoxicillin Allergy (Verified 07/09/24 14:32) ears pluggedPenicillins Adverse Reaction (Intermediate, Verified 07/09/24 14:32) Nausea, ears pluggedramipril Adverse Reaction (Intermediate, Verified 07/09/24 14:32) Low blood pressure Medications ?Medication ?Instructions ?Recorded ?Confirmed ?Type albuterol sulfate 90 mcg/actuation 2 puff inhalation Q6H PRN 02/07/18 07/09/24 Rx aerosol inhaler (ProAir HFA) bronchospasm #18 grams aspirin 81 mg tablet,delayed 81 mg PO DAILY 06/26/19 07/09/24 History release (Adult Aspirin Regimen) atorvastatin 40 mg tablet 40 mg PO QHS CHOLESTEROL #90 tabs 06/30/20 07/09/24 Rx budesonide-formoterol HFA 80 1 puff inhalation QHS 10/26/21 07/09/24 History mcg-4.5 mcg/actuation aerosol inhaler (Symbicort) omeprazole 40 mg capsule,delayed 40 mg PO DAILY 10/26/21 07/09/24 History release metformin 500 mg tablet 500 mg PO DAILY 09/27/22 07/09/24 History sildenafil 100 mg tablet 100 mg PO PRN PRN ed 09/19/23 07/09/24 History cholecalciferol (vitamin D3) 125 125 mcg PO DAILY 12/30/23 07/09/24 History mcg (5,000 unit) capsule nitroglycerin 0.3 mg sublingual 0.3 mg sublingual Q5M PRN chest 12/30/23 07/09/24 History tablet pain semaglutide 1 mg/dose (4 mg/3 mL) 1 mg subcut QWEEK 12/30/23 07/09/24 History subcutaneous pen injector (Ozempic) triamcinolone acetonide 55 mcg 2 spray intranasal DAILY 12/30/23 07/09/24 History nasal spray aerosol (Nasacort Allergy) diltiazem HCl 180 mg 180 mg PO DAILY #90 caps 05/07/24 07/09/24 Rx capsule,extended release 24 hr (Cartia XT) escitalopram oxalate 10 mg tablet 10 mg PO QDAY 05/17/24 07/09/24 History Have you fallen in the past year?: No PFSH Medical History Abnormal virtual colonoscope Hx of colonic polyps Ventricular tachycardia Hernia Rectal abnormality Rectal abnormality Tinnitus of both ears Bruising Diabetes Arthritis Prostate disease High cholesterol Easy bruising Syncope Gastric reflux Non-smoker History of pain when walking History of echocardiogram History of stress test Hypertension Cardiology follow-up encounter History of heart attack History of irregular heartbeat Essential hypertension TIA (transient ischemic attack) (04/13/18) History of non-ST elevation myocardial infarction (NSTEMI) (10/06/11) Atherosclerosis of coronary artery of [place] heart without angina pectoris Diabetes mellitus, type II Hypertension Hyperlipidemia Asthma Surgical History Hx of prostatectomy History of prostate surgery History of cardiac catheterization Stented coronary artery (10/06/11) History of total right hip arthroplasty History of cataract surgery History of hernia repair RETINA SURGERY History of tonsillectomy Family History Mother CVA (cerebral vascular accident)Father COPD (chronic obstructive pulmonary disease) Social History household members: spouse Smoking Status: Never smoker how long ago did patient quit smoking: only as teen, 2 packs entire lifetime alcohol intake: never substance use type: does not use HPI HPI HPI: Patient is a 69-year-old male known to me who comes in with bilateral inguinal hernias. The patient was seen by me 2 years ago for these inguinal hernias and decided not to have surgery. Subsequently in 2022 he had a robot simple prostatectomy but the midline was utilized for this. The umbilical hernia was repaired at that time as it was used as a port site. ROS General General: Yes weight change (loss (ozempic)) and fatigue; No appetite, colon cancer, breast cancer or weakness HEENT HEENT: Yes eye surgery; No difficulty swallowing, eye injury, swollen glands or hoarseness Endo Endocrine: Yes diabetes mellitus; No thyroid disease, thyroid cancer, Hair loss, heat intolerance or cold intolerance Skin Skin: No rash or changing moles Musc Musculoskeletal: Yes arthritis; No back problems, rheumatoid arthritis, gout or joint pain Cardio Cardiovascular: Yes high blood pressure, heart attack and heart stent; No murmur, pacemaker, heart disease, atrial fibrillation, palpitations, shortness of breat with exertion or chest pain Psych Psychiatric: No depression, anxiety or hearing voices Resp Respiratory: Yes shortness of breath, No sleep apnea, No cough, No COPD, Yes asthma, No emphysema and No wheezing Gastro Gastrointestinal: No abdominal pain, No nausea or vomiting, No diarrhea, No constipation, No blood in stool, Yes acid reflux, Yes hemorrhoids, No ulcers, No gallbladder problem and No black,tarry stools Jose Angel Hematologic: Yes blood thinners, No blood disorders, No bleeding, No anemia and No blood clots Additional Details: aspirin Neuro Neurologic: No numbness, No tingling and No weakness Exam Const General: cooperative Orientation: alert and oriented x3 [facility] Head: normal to inspection Neck Neck: normal visual inspection and full ROM Chest Chest palpation & inspection: normal inspection of the chest Resp Effort & Inspection: normal respiratory effort Auscultation: clear to auscultation bilaterally Cardio Rate: regular rate Rhythm: regular rhythm GI Inspection: non-distended Palpation: soft, hernia indirect inguinal bilaterally and nontender Skin General: no rashes or lesions noted Neuro General: patient alert and patient oriented x3 Extrem General: full ROM Psych Appearance: grossly normal Mental Status: mental status grossly normal Assessment and Plan Assessment and Plan (1) Hernia, inguinal, bilateral: Status: Acute Qualifiers: Obstruction and gangrene presence: without obstruction or gangrene Recurrence: recurrent Qualified Code(s): K40.21 - Bilateral inguinal hernia, without obstruction or gangrene, recurrent Plan: The patient has bilateral inguinal hernias. The left 1 is recurrent and he had an open repair in the past. He says that the right one has been there for sev eral years and the left 1 just showed up a few months ago. They are painful to reduce. He denies nausea vomiting or chronic pain in the areas. I discussed robotic assisted laparoscopic bilateral inguinal hernia repair with mesh. I discussed the procedure in detail as well as the risks including not limited to bleeding, infection, injury to surrounding organs, mesh placement, chronic groin pain. I also discussed possible injury to blood supply to the testicle or the testicle itself. Patient understands the risks and is willing to proceed. Patient will hold his Ozempic and aspirin before surgery. Amos Carlos MD Pager: [facility] [address] [place] [address], [address] [place] [address] Office: I have examined the patient and the H&P has been reviewed. There are no clinical changes since date of exam.
[2024-07-30] MEDS: 0.9% Normal Saline (1000mL) 1,000 ML 15 ML IV (06:51)
[2024-07-30 07:04] LABS: Bedside Glucose 148 mg/dL (74-106)
--- NOTE | 2024-07-30 07:07 | PCM.PRE.AN2 ---
ASA Classification* ASA Classification ASA Classification: 3 Assessment & Plan Anesthesia* Anesthesia Assessment Anesthesia Assessment: Discussed sedation and/or anesthesia options, risks, benefits, and alternatives with patient/parents/legal guardian/POA. Questions invited. The patient/parents/legal guardian/POA seems to understand and agrees to proceed with anesthesia plan. Reviewed the physical assessment, medical history, allergy history and patient home medications list prior to surgery/procedure/anesthetic and documented any changes. Performed airway and anesthesia risk assessments. Anesthesia Type Anesthesia Type: General Anesthesia Focused Assessment* Temperature: 97.8 F Pulse Rate: 75 Blood Pressure: 144/87 Respiratory Rate: 16 Pulse Ox: 97 Airway Assessment Mouth opens: >3 cm Mallampati Score: II Focused Labs Anesthesia Preop lab: CBC WBC 9.8 K/mm3 (4.4-11.0) 07/20/24 08:14 RBC 4.99 M/mm3 (4.6-6.2) 07/20/24 08:14 Hgb 15.0 g/dL (13.0-16.5) 07/20/24 08:14 Hct 45.5 % (40-54) 07/20/24 08:14 Plt Count 259 K/mm3 (150-450) 07/20/24 08:14 CHEMISTRY Potassium 3.5 mmol/L (3.5-5.1) 07/20/24 08:14 Sodium 137 mmol/L (136-145) 07/20/24 08:14 Magnesium 2.5 mg/dL (1.6-2.6) 02/12/23 20:10 BUN 13 mg/dL (7-18) 07/20/24 08:14 Creatinine 0.93 mg/dL (0.70-1.30) 07/20/24 08:14 Glucose 181 mg/dL (74-106) H 07/20/24 08:14 POC Glucose 148 mg/dL (74-106) H 07/30/24 06:46 TSH 0.76 uIU/mL (0.358-3.74) 02/13/23 05:55 COAG PT 13.9 SECONDS (11.7-14.9) 10/03/17 10:05 Pre-Assessment Diagnosis/Proposed Procedure Planned Operative Procedure(s): (B) Lap Robotic Bilateral Inguinal Hernia w/mesh Anesthesia History Anesthesia History - lithographic proofer: Anesthesia History - lithographic proofer Hx Hospitalization Yes 07/19/24 13:04 Any Problems With Anesthesia No 07/19/24 13:04 Cholinesterase deficiency No 07/19/24 13:04 You/Your Family Experience No 07/19/24 13:04 fever (hyperthermia) with Relationship Recent Exposure to Contagious No 07/30/24 06:49 Disease Does patient have nerve No 07/19/24 13:04 stimulator Patient instructed to have device shut off --Does patient have Pacemaker No 07/30/24 06:52 or ICD? When Was Last Pacemaker Check QUESTION #4 FULL TEXT: You/Your Family Experience fever (hyperthermia) with Anesthesia Last Oral Intake Last Oral intake: Last Oral Intake NPO since 00:00 07/30/24 06:52 Meds taken in AM with sips of No 07/30/24 06:52 water? Meds patient instructed to take am of surgery PONV PONV - lithographic proofer: PONV - lithographic proofer Female No 07/19/24 13:04 HX of Motion Sickness Yes 07/19/24 13:04 HX of N/V After Surgery No 07/19/24 13:04 Non-Smoker Yes 07/19/24 13:04 Duration of Surgery greater Yes 07/19/24 13:04 than 60 minutes Number of Risk Factors 3 07/19/24 13:04 PONV Score Moderate Risk 07/19/24 13:04 Height & Weight Height & Weight: Anesthesia: Height & Weight Height 5 ft 6 in 07/30/24 06:52 Weight: 76 kg 07/30/24 06:52 Body Mass Index (BMI) 27.0 07/30/24 06:52 Respiratory Assessment Respiratory Assessment - lithographic proofer: Respiratory Tract Infection Hx - lithographic proofer Hx Respiratory Tract Infection No 07/19/24 13:04 STOP Sleep Apnea STOP Sleep Apnea - lithographic proofer: STOP Sleep Apnea - lithographic proofer Hx Hypertension Yes: CONTROLLED ON MED 07/19/24 13:04 Hx Sleep Apnea No 07/19/24 13:04 CPAP BIPAP Do you snore loudly (louder No 07/19/24 13:04 than talking or can be heard Do you often feel tired/ No 07/19/24 13:04 fatigued/ sleepy during daytime? Has anyone observed you stop No 07/19/24 13:04 breathing during sleep? STOP Results Negative 07/19/24 13:04 QUESTION #5 FULL TEXT : Do you snore loudly (louder than talking or can be heard through closed doors)? Tobacco Use History Tobacco Use History - lithographic proofer: Tobacco Use History - lithographic proofer Tobacco Use Smoking Status Never smoker 07/19/24 13:04 Hx Tobacco Use No 07/19/24 13:04 Years Smoking Packs Smoked per Day Smoking Cessation Date was within the last 15 years Hx Smoking Cessation Date Hx Smoking Cessation Counseling Hematologic Medial History Hematologic Hx - lithographic proofer: Hematologic Medical Hx - c wpf developer Hx of Blood Transfusion No 07/19/24 13:04 Hx of Transfusion in last 3 No 07/19/24 13:04 Months Date of Last Transfusion (if within last 3 months) Ever experience any problems No 07/19/24 13:04 with transfusion(s)? Specify any problems Hx of Preganancy in last 3 N/A 07/19/24 13:04 Months Nurse Filling Out Transfusion NBUCHER 07/19/24 13:04 & Questions: Date: 07/19/24 07/19/24 13:04 Time: 13:06 07/19/24 13:04 Patient unable to answer at this time (ie. confused, unrespo /Reproduction History /Reproductive History - lithographic proofer: /Reproductive Hx- lithographic proofer Hx Now Gestational Age (in weeks): EDC: Hx Hx Para Hx Section SAB No 07/19/24 13:04 Active Medications Active Medications: Current Medications Generic Name Dose Route Start Last Admin Trade Name Freq PRN Reason Stop Dose Admin Clindamycin Phosphate 900 mg in 50 mls @ 75 mls/hr 07/30/24 07:30 Cleocin IV 07/30/24 08:09 PREOP ONE Sodium Chloride 1,000 mls @ 15 mls/hr 07/30/24 06:20 07/30/24 06:51 IV 08/04/24 19:39 15 mls/hr .Q48H BARTOLO Administration Protocol PFSH Medical History Abnormal virtual colonoscope Hx of colonic polyps Ventricular tachycardia Hernia Rectal abnormality Rectal abnormality Tinnitus of both ears Bruising Diabetes Arthritis Prostate disease High cholesterol Easy bruising Syncope Gastric reflux Non-smoker History of pain when walking History of echocardiogram History of stress test Hypertension Cardiology follow-up encounter History of heart attack History of irregular heartbeat Essential hypertension TIA (transient ischemic attack) (04/13/18) History of non-ST elevation myocardial infarction (NSTEMI) (10/06/11) Atherosclerosis of coronary artery of [place] heart without angina pectoris Diabetes mellitus, type II Hypertension Hyperlipidemia Asthma Home Medications ?Medication ?Instructions ?Recorded ?Last Taken ?Type albuterol sulfate 90 mcg/actuation 2 puff inhalation Q6H PRN 02/07/18 07/30/24 Rx aerosol inhaler (ProAir HFA) bronchospasm #18 grams aspirin 81 mg tablet,delayed 81 mg PO DAILY 06/26/19 07/24/24 History release (Adult Aspirin Regimen) atorvastatin 40 mg tablet 40 mg PO QHS CHOLESTEROL #90 tabs 06/30/20 07/29/24 Rx budesonide-formoterol HFA 80 1 puff inhalation QHS 10/26/21 07/29/24 History mcg-4.5 mcg/actuation aerosol inhaler (Symbicort) omeprazole 40 mg capsule,delayed 40 mg PO DAILY 10/26/21 07/29/24 History release metformin 500 mg tablet 500 mg PO DAILY 09/27/22 07/29/24 History sildenafil 100 mg tablet 100 mg PO PRN PRN ed 09/19/23 01/09/24 History cholecalciferol (vitamin D3) 125 125 mcg PO DAILY 12/30/23 07/29/24 History mcg (5,000 unit) capsule nitroglycerin 0.3 mg sublingual 0.3 mg sublingual Q5M PRN chest 12/30/23 Unknown History tablet pain semaglutide 1 mg/dose (4 mg/3 mL) 1 mg subcut MO 12/30/23 07/16/24 History subcutaneous pen injector (Ozempic) triamcinolone acetonide 55 mcg 2 spray intranasal DAILY 12/30/23 07/29/24 History nasal spray aerosol (Nasacort Allergy) diltiazem HCl 180 mg 180 mg PO DAILY #90 caps 05/07/24 07/29/24 Rx capsule,extended release 24 hr (Cartia XT) escitalopram oxalate 10 mg tablet 10 mg PO QDAY 05/17/24 07/29/24 History Allergy/AdvReac Type Severity Reaction Status Date / Time amoxicillin Allergy ears Verified 07/19/24 13:03 plugged Penicillins AdvReac Intermediate Nausea, Verified 07/19/24 13:03 ears plugged ramipril AdvReac Intermediate Low blood Verified 07/19/24 13:03 pressure Family History Mother CVA (cerebral vascular accident) Father COPD (chronic obstructive pulmonary disease) Surgical History History of colonoscopy Hx of prostatectomy History of prostate surgery History of cardiac catheterization Stented coronary artery (10/06/11) History of total right hip arthroplasty History of cataract surgery History of hernia repair RETINA SURGERY History of tonsillectomy Social History household members: spouse Smoking Status: Never smoker how long ago did patient quit smoking: only as teen, 2 packs entire lifetime alcohol intake: never substance use type: does not use Review of Systems (Anesthesia) ROS Narrative System reviewed and no additional complaints, except as documented.
[2024-07-30] MEDS: Clindamycin 900 MG/50 ML BAG 75 MG IV (07:56)
[2024-07-30] MEDS: Bupivacaine Mpf 0.5% 30 ML VIAL (08:45)
--- NOTE | 2024-07-30 09:05 | PCM.POST.ANE ---
Anesthesia: Postop Eval I Current Vital Signs Temperature: 98 F Pulse Rate: 83 Blood Pressure: 129/72 Respiratory Rate: 16 Pulse Ox: 91 Assessment Airway patent: Yes Spontaneous unlabored respirations: Yes nausea: No Vomiting: No Anesthesia Complication: No Fluid Hydration Crystalloid volume administer (ml): 800 Total IV fluid infused: 800 Progress Note Anesthesia document: Postop Eval 1 completed: Yes
--- NOTE | 2024-07-30 09:06 | PCM.POSTANE2 ---
Anesthesia Postop Eval I Sum Postop Eval Completion status Anesthesia document: Postop Eval 1 completed: Yes Anesthesia Postop Eval I Summary Anesthesia Postop Eval I Summary: Anesthesia Postop Eval I: Assessment Summary Airway patent Yes 07/30/24 09:05 Spontaneous unlabored Yes 07/30/24 09:05 respirations Mental status nausea No 07/30/24 09:05 Vomiting No 07/30/24 09:05 Anesthesia Postop Eval I: Fluid Summary Crystalloid volume administer 800 07/30/24 09:05 (ml) Colloids volume administered ( ml) Blood Product volume administered (ml) Total IV fluid infused 800 07/30/24 09:05 Anesthesia Postop Eval I: Summary Notes Anesthesia Complication No 07/30/24 09:05 Anesthesia Complication Comment: Post-operative progress note Anesthesia: Postop Eval II Evaluation Mental status: Awake Pain Level: 0 nausea: No Vomiting: No
--- NOTE | 2024-07-30 09:16 | PCM.OPRPT ---
Operative Report (Standard) Operative Information Date of Procedure: 07/30/24 Pre-Operative Diagnosis: Bilateral inguinal hernias Post-Operative Diagnosis: Left direct inguinal hernia Surgery/Procedure Performed: Robotic assisted laparoscopic left inguinal hernia repair with mesh sales promotion coordinator: Yes Flame Hardening Machine Operator: Terrence Bain Tasks completed by commercial lines assistant: Opening and Closing Type of Anesthesia: General/Regional RN Documented Start/Stop Times: Operation Date: 07/30/24 07:30 Case Time Into Pre-Op 07/30/24 06:02 Out of Pre-Op 07/30/24 07:43 Anesthesia Start 07/30/24 07:48 Into Room 07/30/24 07:48 Procedure Start 07/30/24 08:13 Procedure End 07/30/24 08:54 Anesthesia End 07/30/24 09:02 Out of Room 07/30/24 09:02 Into Recovery 07/30/24 09:04 Procedure Start Time: 08:13 Procedure Stop Time: 08:54 Select all DRAINS/GRAFTS/IMPLANTS that apply: Implanted device Implanted device details: ProGrip mesh in the left groin Estimated Blood Loss: 5 Specimen collected: No Description of surgery: The patient was brought back to the operating room and general anesthesia was induced. The abdomen was prepped and draped in usual sterile fashion. Midline incision was made superior to the umbilicus and deepened to the fascia which was elevated and then a Veress needle was placed into the abdomen. Drop test was performed. Patient was then inflated to 15 mmHg and the Veress needle was removed. A port was placed into the abdomen and then the camera was placed into the abdomen to inspect for injuries and there were none. Next the patient was placed in Trendelenburg position and a robotic port was placed in the right lateral abdomen and left lateral abdomen and then the robot was docked. The patient had a direct inguinal hernia on the left but I was unable to appreciate any herniation on the right. I decided to fix the left side and that was addressed first. An incision was made in the peritoneum in the left lower quadrant. Dissection was carried inferiorly until the hernia was encountered. The hernia sac was dissected free circumferentially leaving a large direct defect. The direct defect was closed with a running strata fix suture. Next a ProGrip mesh was selected and placed over the defect and unfolded. There was good coverage surrounding the hernia. Next the mesh was completely covered with peritoneum and this was closed with a running V-Loc suture. The mesh was completely covered with peritoneum at the end of the case. I called out to the patient's to discuss and I informed her that there was no hernia on the right and she was agreeable to only fixing the left. The patient was then undocked from the robot and allowed to desufflate. The ports were removed. The incisions were closed with interrupted 4-0 Monocryl sutures. Steri-Strips were applied. Bandages were applied. Scrotum was checked at the end of the case and contained both testicles. Patient was awoken and taken to PACU in stable condition and tolerated the procedure well. Surgical Findings: Direct left inguinal hernia. No hernia on the right Complications Complications: No Admit VTE Documentation VTE Mechan Device Prophylaxis: SCD's
--- NOTE | 2024-07-30 09:22 | EX.PCM.DISCH ---
Discharge Instructions Procedure Hernia Diet Discharge Diet: Light diet - advance as tolerated Activity Discharge Activity: May Not Drive (for 2-3 days or while taking narcotic pain meds.) and May Shower (with the bandage in place 1-2 days after surgery.) Lifting Restrictions: 20 pounds for 4 weeks. Additional Activity Instructions:: Climbing stairs is fine, walking is encouraged. Sitting in bed may be uncomfortable. Sitting up using your lateral muscles (sitting up sideways) is usually more comfortable. Do not drive, work heavy equipment of sign legal documents for 24 hours. If your hernia repair was an inguinal repair, you may have scrotal swelling, an ice pack and/or athletic support can provide more comfort. Pain medications may cause nausea, you should typically eat light foods as you take your pain medications. Pain medications may also cause constipation. If you have difficulty with this, discuss with your doctor. Resume aspirin tomorrow, resume Ozempic tomorrow Dressing / Incision Call your doctor if your incision/area has: Continuous Slow Oozing, Sudden Increased Bleeding, Increased Pain/ Swelling, Increased Redness and Foul Smelling Discharge Call your doctor if you observe: Fever of 101 or Higher Suture Line Care: Avoid Pulling/Pushing and Avoid Pinching/Bending Remove Dressing in: 2 days (Remove clear bandages in 2 days, remove Steri-Strips in 7 to 10 days.) Follow Up Care Please Follow Up With: Amos Carlos MD When: Please call to schedule 2 week follow up appointment. [phone] Test Results: Test results from this visit will be discussed in further detail at your follow-up appointment, if applicable. Discharge Plan Admission Attending Provider: Amos Carlos Primary Care Provider: Benjamin Cruz Instructions Print Language: Vincentian Discharge Orders/Prescriptions Prescriptions: New oxycodone 5 mg Tablet 5 - 10 mg PO Q4H PRN PRN (Reason: Pain Score 4-10) 5 Days Qty: 10 0RF No Action albuterol sulfate [ProAir HFA] 90 mcg/actuation HFA aerosol inhaler 2 puff INHALATION Q6H PRN (Reason: bronchospasm) Qty: 18 1RF Rx Instructions: administer with spacer aspirin [Adult Aspirin Regimen] 81 mg tablet,delayed release (DR/EC) 81 mg PO DAILY Symbicort 80-4.5 mcg/actuation HFA aerosol inhaler 1 puff INHALATION QHS metformin 500 mg tablet 500 mg PO DAILY atorvastatin 40 mg tablet 40 mg PO QHS Qty: 90 3RF omeprazole 40 mg capsule,delayed release(DR/EC) 40 mg PO DAILY escitalopram oxalate 10 mg tablet 10 mg PO QDAY sildenafil 100 mg tablet 100 mg PO PRN PRN (Reason: ed) Patient Comments: TAKE 1 TABLET BY MOUTH 1 HOUR PRIOR TO INTERCOURSE triamcinolone acetonide [Nasacort Allergy] 55 mcg aerosol,spray 2 spray intranasal DAILY Rx Instructions: administer into each nostril nitroglycerin 0.3 mg tablet, sublingual 0.3 mg sublingual Q5M PRN (Reason: chest pain) Rx Instructions: do not exceed 3 doses per episode cholecalciferol (vitamin D3) 125 mcg (5,000 unit) capsule 125 mcg PO DAILY Ozempic 1 mg/dose (4 mg/3 mL) pen injector 1 mg subcut MO diltiazem HCl [Cartia XT] 180 mg capsule,extended release 24hr 180 mg PO DAILY Qty: 90 3RF Other Ambulatory Orders: 12 Lead EKG (Routine) Location: None Selected Ordered By: Dr. Naveed Davis Referrals / Follow Up: Benjamin Cruz MD [Primary Care Provider] - Disposition Disposition (needs filled in before D/C Order can be placed): Home, Self Care
== END 2024-07-30 10:38 | disposition home or self-care (01) ==
LOC: SDC 06:00 → AC 06:03
PROVIDERS: Anesthesiology; PCP Family Medicine; Referring Provider Surgery; Visit Provider Surgery
PROC: (CPT 49650; principal; 2024-07-30 07:10)
DX: K40.91 Unilateral inguinal hernia, without obstruction or gangrene, recurrent (principal); E11.9 Type 2 diabetes mellitus without complications; E78.00 Pure hypercholesterolemia, unspecified; I10 Essential (primary) hypertension; I25.10 Atherosclerotic heart disease of native coronary artery without angina pectoris; I25.2 Old myocardial infarction; K21.9 Gastro-esophageal reflux disease without esophagitis; Z95.5 Presence of coronary angioplasty implant and graft; Z79.82 Long term (current) use of aspirin; Z79.84 Long term (current) use of oral hypoglycemic drugs; Z79.85 Long-term (current) use of injectable non-insulin antidiabetic drugs; Z79.899 Other long term (current) drug therapy; Z86.73 Personal history of transient ischemic attack (TIA), and cerebral infarction without residual deficits
CPT/HCPCS: 49650; S2900; 00790; 36415; 80048; 82962; 83036; 85027; 93005; J2405

== ENCOUNTER → 2024-08-13 | Outpatient (CLI) | payer MEDICARE, SELFPAY ==
[2024-08-13 12:34] LABS: Hematocrit 44.2 % (40-54); Hemoglobin 14.8 g/dL (13.0-16.5); Mean Corp Hgb Conc 33.5 g/dL (32-36); Mean Corpuscular Hgb 30.5 pg (27.0-32.0); Mean Corpuscular Volume 91.1 fL (80-94); Mean Platelet Vol. 10.4 fl (6.2-12.0); Platelet Count 281 K/mm3 (150-450); RBC Distribution Width CV 13.3 % (11.6-14.6); RBC Distribution Width SD 45.1 fl (35.1-43.9); Red Blood Count 4.85 M/mm3 (4.6-6.2); White Blood Count 7.8 K/mm3 (4.4-11.0)
[2024-08-13 12:59] LABS: Vitamin D,25 Hydroxy 71.8 ng/mL
[2024-08-13 13:13] LABS: AST(SGOT) 17 U/L (15-37); Alanine Aminotransfer ALT/SGPT 24 U/L (16-61); Albumin, Serum 3.7 g/dL (3.2-5.0); Alkaline Phosphatase 112 U/L (45-117); Anion Gap 5 (5-15); BUN 9 mg/dL (7-18); BUN/Creat Ratio 10.6 RATIO (10-20); Calcium,Total 8.9 mg/dL (8.5-10.1); Chloride 106 mmol/L (98-107); Cholesterol 97 mg/dL (200); Creatinine, Serum 0.85 mg/dL (0.70-1.30); EST Glomerular Filtration Rate 95 mL/min (>60); Est Glom Filt Rate - Afr Amer 114 mL/min (>60); Globulin 3.6 g/dL (2.2-4.2); Glucose 123 mg/dL (74-106); High Density Lipoprotein 39 mg/dL; PSA,Total - Annual Screen 0.58 ng/mL (0.00-4.00); Potassium 3.7 mmol/L (3.5-5.1); Protein, Total 7.3 g/dL (6.4-8.2); Sodium Level 137 mmol/L (136-145); Thyroid Stim Hormone (TSH) 0.572 uIU/mL (0.358-3.740); Triglycerides 73 mg/dL; Very Low Density Lipoprotein 15 mg/dL (5-40)
== END | disposition home or self-care (01) ==
LOC: MFPLAB 10:55
PROVIDERS: PCP Family Medicine; Referring Provider Family Medicine; Visit Provider Family Medicine
DX: I25.10 Atherosclerotic heart disease of native coronary artery without angina pectoris (principal); E11.69 Type 2 diabetes mellitus with other specified complication; R79.89 Other specified abnormal findings of blood chemistry; Z12.5 Encounter for screening for malignant neoplasm of prostate
CPT/HCPCS: 36415; 80053; 80061; 82306; 84153; 84403; 84443; 85027; G0103

== ENCOUNTER → 2024-09-06 | Outpatient (CLI) | payer MEDICARE, SELFPAY ==
--- NOTE | 2024-09-06 14:40 | RAD_ITS ---
STUDY: X-RAY - RIGHT WRIST REASON FOR EXAM: Male, 69 years old. PAIN TECHNIQUE: 3 views of the right wrist were obtained. COMPARISON: None. FINDINGS: Normal visualized distal radius and ulna. Normal radiocarpal articulation. Normal distal radioulnar articulation. Normal carpal bones. Normal carpal articulations. Normal carpometacarpal articulation of the thumb. Normal second through fifth carpometacarpal articulations. Normal visualized metacarpal bones. There are atherosclerotic calcifications. There is no demonstrated acute fracture. RAD/Wrist min 3 Views IMPRESSION: No demonstrated acute fracture. Electronically Signed: Aaron Baeza MD at 15:11 EST ,
== END | disposition home or self-care (01) ==
LOC: MTRAD 14:39
PROVIDERS: PCP Family Medicine; Referring Provider Family Medicine; Visit Provider Family Medicine
DX: M25.531 Pain in right wrist (principal)
CPT/HCPCS: 73110

== ENCOUNTER → 2024-12-21 | Outpatient (CLI) | payer MEDICARE, SELFPAY ==
--- NOTE | 2024-12-21 12:04 | RAD_ITS ---
EXAM: XR Chest, 2 Views CLINICAL INDICATION: CP TECHNIQUE: Frontal and lateral views of the chest. COMPARISON: No relevant prior studies available. FINDINGS: LUNGS AND PLEURAL SPACES: Unremarkable. No consolidation. No pneumothorax. HEART: Unremarkable. No cardiomegaly. MEDIASTINUM: Unremarkable. Normal mediastinal contour. BONES/JOINTS: Unremarkable. No acute fracture. RAD/Chest PA and Lateral IMPRESSION: No acute cardiopulmonary process. Reading Location: [id number]
[2024-12-21 12:43] LABS: Absolute Lymphocyte Count 1.62 X10^3/uL (0.83-4.51); Absolute Neutrophil Count 5.7 X10^3/uL (2.0-7.7); Basophil# 0.07 X10^3/uL; Basophil% 0.8 % (0-1); Eosinophil# 0.39 X10^3/uL; Eosinophils% 4.7 % (0-5); Hematocrit 44.9 % (40-54); Hemoglobin 15.4 g/dL (13.0-16.5); Lymphocyte # 1.62 X10^3/ul (0.83-4.51); Lymphocyte % 19.4 % (19-41); Mean Corp Hgb Conc 34.3 g/dL (32-36); Mean Corpuscular Volume 90.3 fL (80-94); Mean Platelet Vol. 10.5 fl (6.2-12.0); Monocyte# 0.59 X10^3/uL; NRBC Flagged by Analyzer 0 % (0-5); Neutrophil # 5.65 X10^3/uL (2.7-7.7); Neutrophil % 67.5 % (47-70); Platelet Count 259 K/mm3 (150-450); RBC Distribution Width CV 13.6 % (11.6-14.6); Red Blood Count 4.97 M/mm3 (4.6-6.2); White Blood Count 8.4 K/mm3 (4.4-11.0)
[2024-12-21 13:18] LABS: Anion Gap 11 (5-15); BUN 13 mg/dL (4-19); BUN/Creat Ratio 13.2 RATIO (10-20); Calcium,Total 9.4 mg/dL (7.6-11.0); Carbon Dioxide 23.2 mmol/L (21.0-32.0); Chloride 103 mmol/L (98-108); Creatinine, Serum 0.95 mg/dL (0.70-1.20); EST Glomerular Filtration Rate 87 (>60); Glucose 126 mg/dL (70-99); Potassium 3.8 mmol/L (3.3-5.1); Sodium Level 138 mmol/L (133-145)
== END | disposition home or self-care (01) ==
LOC: LAB 12:00
PROVIDERS: PCP Family Medicine; Referring Provider Physician Assistant Medical; Visit Provider Physician Assistant Medical
DX: I20.0 Unstable angina (principal); Z95.5 Presence of coronary angioplasty implant and graft; I25.2 Old myocardial infarction
CPT/HCPCS: 36415; 71046; 80048; 85025

== ENCOUNTER 2024-12-31 08:25 | Day surgery (SDC) | payer MEDICARE, SELFPAY ==
[2024-12-28 08:01] VITALS: BMI 27.1
--- NOTE | 2024-12-31 10:39 | CL.D_ITS ---
Patient Name: ESTELLE ROWLAND Study Date: 12/31/2024 Performing: Fazal Mansfield MD Ht: 66 inches 167.64 cm : 1955 Wt: 167.99 lbs 76.2 kg Age: 69 Gender: male BSA: 1.86 PROCEDURE(S) PERFORMED DC01-(81275)LHC/COR/LV CLINICAL PROFILE AND INDICATIONS Indications: Suspected CAD Heart Failure: None Stress/Imaging Stress/Image Study Performed: No Angina Classification Anginal Classification w/in 2 Weeks: CCS I CAD Presentations: Stable angina. CONCLUSIONS Coronary artery disease with previously placed stent in the left anterior descending artery and ramus intermedius noted to be patent with calcified right coronary artery but no high-grade stenosis and preserved ejection fraction. RECOMMENDATIONS Maximization of medical therapy. DESCRIPTION OF PROCEDURE The patient arrived to the procedure lab. The risks and benefits of the procedure as well as a full description of our services here and current unavailability of surgical backup were fully explained to the patient and/or their significant other prior to the catheterization. The Timeout was completed, verifying the correct patient and procedure. The patient's procedural site was prepped and draped in the usual fashion. Local anesthetic was given subcutaneously to right radial region with Lidocaine 2%. Using a modified Seldinger technique, arterial access was obtained via the right radial artery, a 6Fr sheath was inserted. Left Coronary Artery selective angiography was performed in multiple views using a 5 Fr. 4.0 Panola catheter. Right Coronary Artery selective angiography was then performed in multiple views using a 5 Fr. 4.0 Panola catheter. Left Ventriculography was performed in HUTTON projection using a 5 Fr. Pigtail catheter. LV to AO pullback pressures were then recorded.The arterial sheath was pulled and a TR Band was applied for hemostasis CORONARY ANGIOGRAPHY DOMINANCE: Right Dominant LEFT HEART ASSESSMENT Left Ventricular Ejection Fraction: by LV Gram 55 % Normal LV wall motion Normal Left Ventricular systolic function LEFT MAIN: Mild calcification, Non-obstructive LEFT ANTERIOR DESCENDING ARTERY: Medium size vessel with previously placed stent which is patent. 1st and 2nd diagonal branches do not appear to have any significant stenosis. CIRCUMFLEX ARTERY: Mild luminal irregularities RAMUS: Medium size vessel previously stented and noted to be patent. The vessel then terminates with 3 side branches which have moderate 40 to 50% proximal stenosis. RIGHT CORONARY ARTERY: Tortuous vessel in its proximal segment with calcification but no high-grade stenosis. Acute marginal branch and posterior descending artery and posterolateral vessels are noted with no significant stenosis present. COMPLICATIONS No Complications PROCEDURE MEDICATIONS Versed 1 mg IV Fentanyl 50 mcg IV Versed 1 mg IV Oxygen: 2 L/min via nasal cannula Heparin given IA 12/31/2024 09:57:40 Verapamil 2.5mg, Ntg 100mcgs, 3000 units of Heparin given IA 12/31/2024 09:57:40 SUMMARY OF HEMODYNAMIC DATA Time AIR REST ECG 09:17:14 ECG 09:45:41 AO 117/59 (84) SA 10:14:10 LV 122/9, 19 10:22:02 LV 124/2, 7 10:22:11 LV 125/3, 9 10:22:44 LVp 123/3, 10 10:22:47 AOp 119/56 (83) 10:22:54 10:35:00 Signed By Fazal Mansfield MD On 12/31/2024 10:38:46 Fazal Mansfield MD
== END 2024-12-31 10:25 | disposition home or self-care (01) ==
PROVIDERS: PCP Family Medicine; Referring Provider Internal Medicine Cardiovascular Disease; Visit Provider Internal Medicine Cardiovascular Disease
DX: I25.10 Atherosclerotic heart disease of native coronary artery without angina pectoris (principal); E11.9 Type 2 diabetes mellitus without complications; I10 Essential (primary) hypertension; I25.2 Old myocardial infarction; K21.9 Gastro-esophageal reflux disease without esophagitis; E78.2 Mixed hyperlipidemia; J45.909 Unspecified asthma, uncomplicated; Z95.5 Presence of coronary angioplasty implant and graft; Z86.73 Personal history of transient ischemic attack (TIA), and cerebral infarction without residual deficits; Z79.82 Long term (current) use of aspirin; Z79.51 Long term (current) use of inhaled steroids; Z79.84 Long term (current) use of oral hypoglycemic drugs; Z79.85 Long-term (current) use of injectable non-insulin antidiabetic drugs; Z79.899 Other long term (current) drug therapy
CPT/HCPCS: 93458; 99152; 99153; Q9967; C1769; C1894

== ENCOUNTER → 2025-02-05 | Outpatient (CLI) | payer MEDICARE, SELFPAY ==
[2025-02-05 19:58] LABS: Microalbumin,Random Urine 56.2 mg/L (NO RANGE EST.); Microalbumin:Creatinine Ratio 11.2 mg/g CRE
== END | disposition home or self-care (01) ==
LOC: LABSPEC 15:13
PROVIDERS: PCP Family Medicine; Referring Provider Family Medicine; Visit Provider Family Medicine
DX: E11.9 Type 2 diabetes mellitus without complications (principal)
CPT/HCPCS: 82043; 82570

== ENCOUNTER → 2025-04-11 | Outpatient (CLI) | payer MEDICARE, SELFPAY ==
--- NOTE | 2025-04-11 09:52 | RAD_ITS ---
PROCEDURE: HIP, UNI W/ PELVIS 2-3 VIEWS 04/11/2025 REASON FOR EXAM: HIP PAIN, DECREASED IR OF L HIP TECHNIQUE: HIP, UNI W/ PELVIS 2-3 VIEWS Laterality: Left COMPARISON: Right hip and pelvis study 07/16/2019. RAD/HIP, UNI W/ Pelvis 2-3 Views IMPRESSION: Partially visualized right hip prosthesis appear stable, without apparent compl ication. Prominent degenerative changes of the visualized lower lumbar spine noted. Mild asymmetric right sacroiliac joint degenerative changes are seen. Prominent arterial calcification is noted. The left hip joint demonstrates mild degenerative changes, progressed since 201 9, probable mild superolateral joint narrowing. No evidence of femoral head osteonecrosis. No acute fracture or dislocation is seen. Reading Location: [place] [id number]
== END | disposition home or self-care (01) ==
LOC: MTRAD 09:51
PROVIDERS: PCP Family Medicine; Referring Provider Family Medicine; Visit Provider Family Medicine
DX: M25.552 Pain in left hip (principal)
CPT/HCPCS: 73502